=== PATIENT | male | born 1930 | race Caucasian/White ===

== ENCOUNTER 2017-12-24 08:39 | Day surgery (SDC) | payer MEDICARE, OTHER ==
[2017-12-17 12:32] VITALS: BMI 23.0
[~2017-12-24 08:39] MED LIST: HEPARIN SODIUM,PORCINE 5,000 UNIT/ML 1 ML VIAL SQ ONE; HYDROmorphone 0.5 MG/0.5 ML SYRINGE IVP PRN; LACTATED RINGERS 1,000 ML IV SCH; ONDANSETRON 4 MG/2 ML VIAL IVP ONE; Pre Op ABX Message 1 EACH MISC MISCELLANE ONE
[2017-12-24 09:04] VITALS: RESP 16; TEMP 97.6
[2017-12-24 09:28] LABS: Glucose,Whole Blood 127 mg/dL (75-99)
[2017-12-24] MEDS ORDERED: LIDOCAINE 1% 20 ML VIAL (10MG/ML) FOR IV START INTRADERMA ONE (09:37)
--- NOTE | 2017-12-24 10:44 | P.GSHP ---
History of Present Illness H&P Date: 12/24/17 Chief Complaint: Squamous cell carcinoma right arm This 87-year-old male who had a previous punch biopsy performed by Dr. Ramirez. 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 Patient presents today for wide local excision. I had a lengthy discussion the patient and his son patient's skin is very thin. Patient aware the risk of possible wound infection seroma hematoma and wound opening. Past Medical History Past Medical History: COPD, CVA/TIA, Diabetes Mellitus, GERD/Reflux, Hypertension, Pulmonary Embolus (PE) Additional Past Medical History / Comment(s): TIAs (1996) History of Any Multi-Drug Resistant Organisms: None Reported Past Surgical History: Bowel Resection, Joint Replacement, Orthopedic Surgery Additional Past Surgical History / Comment(s): AAA repair (1995), various procedures to remove skin lesions/cancerous skin lesions Past Anesthesia/Blood Transfusion Reactions: No Reported Reaction Additional Past Anesthesia/Blood Transfusion Reaction / Comment(s): slow to come out Smoking Status: Former smoker - Past Family History Mother Additional Family Medical History / Comment(s): "old age" at 92 years old Father Family Medical History: Cancer Additional Family Medical History / Comment(s): Hodgkins Lymphoma- at age 53 Medications and Allergies Home Medications Medication Instructions Recorded Confirmed Type Omeprazole 20 mg PO DAILY 10/16/15 12/24/17 History metFORMIN HCL 500 mg PO DAILY 10/16/15 12/24/17 History Levalbuterol Nebulized (Conc) 1.25 mg INHALATION RT-Q6H ml 10/26/15 12/24/17 Rx [Xopenex Nebulized (Conc)] Valsartan [Diovan] 320 mg PO DAILY tab 10/26/15 12/24/17 Rx Allergies Allergy/AdvReac Type Severity Reaction Status Date / Time No Known Allergies Allergy Verified 12/24/17 09:13 Surgical - Exam Vital Signs Temp Pulse Resp BP Pulse Ox 97.6 F 86 16 151/81 99 12/24/17 09:02 12/24/17 09:02 12/24/17 09:02 12/24/17 09:02 12/24/17 09:02 - General well developed, no distress - Eyes PERRL - ENT normal pinna - Neck no masses - Respiratory normal expansion - Cardiovascular Rhythm: regular - Abdomen Abdomen: soft, non tender - Integumentary 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 Patient will undergo wide local excision.
[2017-12-24] MEDS ORDERED: MIDAZOLAM 2 MG/2 ML VIAL ONE (10:55)
[2017-12-24] MEDS ORDERED: PROPOFOL 10 MG/ML 20 ML VIAL IV ONE (10:55)
[2017-12-24] MEDS ORDERED: KETAMINE 10 MG/ML 20 ML VIAL ONE (10:55)
[2017-12-24] MEDS ORDERED: fentaNYL (PF) 50 MCG/ML 2 ML AMP ONE (10:55)
[2017-12-24] MEDS ORDERED: LIDOCAINE 1% INJ 10MG/ML (20 ML MDV) ONE (10:55)
[2017-12-24] MEDS ORDERED: BUPIVACAINE (PF) 0.5% 30 ML VIAL SQ ONE (11:13)
--- NOTE | 2017-12-24 11:43 | P.OP ---
Date of Procedure: 12/24/17 Preoperative Diagnosis: Right arm squamous cell carcinoma Postoperative Diagnosis: Right arm squamous cell carcinoma Procedure(s) Performed: Excision of right fore arm squamous cell carcinoma Anesthesia: MAC Surgeon: Leonides Chu Estimated Blood Loss (ml): 5 Pathology: other (Right forearm squamous cell carcinoma) Condition: stable Disposition: PACU Description of Procedure: The patient's placed the operative table in supine position. He received IV sedation. His right arm was prepped and draped usual sterile fashion. The patient a 1 cm squamous cell carcinoma located in the mid position of his right forearm. Elliptical skin incision was made around the lesion the specimen measured 10 x 4 cm. Using left cautery the specimen was dissected free. The Bovie was used for hemostasis. The skin was then closed with interrupted 3-0 Monocryl suture and then running subcuticular Monocryl suture. Dermabond was applied. Patient top she will was sent to recovery in stable condition.
[2017-12-24 12:21] VITALS: BP 112/74; PULSE 79
== END 2017-12-24 12:47 | disposition home or self-care (01) ==
LOC: OR 08:39
PROVIDERS: ATTEND Surgery
DX: C44.622 Squamous cell carcinoma of skin of right upper limb, including shoulder (principal); J44.9 Chronic obstructive pulmonary disease, unspecified; E11.9 Type 2 diabetes mellitus without complications; K21.9 Gastro-esophageal reflux disease without esophagitis; I10 Essential (primary) hypertension; I35.0 Nonrheumatic aortic (valve) stenosis; Z86.711 Personal history of pulmonary embolism; Z86.73 Personal history of transient ischemic attack (TIA), and cerebral infarction without residual deficits; Z79.84 Long term (current) use of oral hypoglycemic drugs; Z79.899 Other long term (current) drug therapy; Z87.891 Personal history of nicotine dependence
CPT/HCPCS: 11606; J2250; J1644; J2405; J2001; J3010; J2704; 88305

== ENCOUNTER 2018-02-05 11:39 | Inpatient (IN) | payer MEDICARE, OTHER ==
[2018-02-05] MEDS ORDERED: SODIUM CHLORIDE 0.9% 1,000 ML IV STA ×2 (12:34)
[2018-02-05] MEDS ORDERED: IPRATROPIUM 0.5 MG/2.5 ML NEBU INHALATION STA (12:34)
[2018-02-05] MEDS ORDERED: AZITHROMYCIN 500 MG in SODIUM CHLORIDE 0.9% 250 ML IVPB STA (12:34)
[2018-02-05] MEDS ORDERED: methylPREDNISolone SOD SUCCI 125 MG/2 ML VIAL IV STA (12:34)
[2018-02-05] MEDS ORDERED: ALBUTEROL NEBULIZED 2.5 MG/3 ML INHALATION STA (12:34)
[2018-02-05 13:00] LABS: Basophils % (A) 0 %; Eosinophils % (A) 0 %; HCT 38.9 % (39.0-53.0); HGB 12.8 gm/dL (13.0-17.5); Lymphocytes # (A) 1.5 k/uL (1.0-4.8); Lymphocytes % (A) 15 %; MCH 28.8 pg (25.0-35.0); MCV 87.3 fL (80.0-100.0); Monocytes # (A) 0.6 k/uL (0-1.0); Monocytes % (A) 6 %; Neutrophils # (A) 7.7 k/uL (1.3-7.7); Neutrophils % (A) 78 %; Platelet Count 140 k/uL (150-450); RBC 4.45 m/uL (4.30-5.90); RDW 13.8 % (11.5-15.5); WBC 9.9 k/uL (3.8-10.6)
[2018-02-05 13:08] LABS: Albumin 4.2 g/dL (3.5-5.0); Calcium 9.4 mg/dL (8.4-10.2); D-Dimer 3.7 mg/L FEU (<0.60); Potassium 4.5 mmol/L (3.5-5.1); Total Bilirubin 0.8 mg/dL (0.2-1.3); Total Protein 7.2 g/dL (6.3-8.2)
[2018-02-05 13:12] LABS: Partial Thromboplastin Time 28.7 sec (22.0-30.0)
[2018-02-05 13:40] LABS: Troponin I 0.024 ng/mL (0.000-0.034)
--- NOTE | 2018-02-05 15:12 | ED ---
SOB HPI - General Chief Complaint: Shortness of Breath Stated Complaint: Weakness Time Seen by Provider: 02/05/18 12:26 Source: patient Mode of arrival: wheelchair Limitations: no limitations - History of Present Illness Initial Comments: 87 years I gentleman presented with the cough fever for about 1 week now complaining about generalized weakness she is nauseous no vomiting is complaining about chest pain chest pain gets worse with deep breaths he does have a history of COPD, CVA, TIA gastroesophageal reflux disease also has a history of firm hypertension and pulmonary embolism in the past. Denies any abdominal pain no frequency urgency dysuria no symptoms of TIA or CVA - Related Data Home Medications Medication Instructions Recorded Confirmed Omeprazole 20 mg PO DAILY 10/16/15 02/05/18 metFORMIN HCL 500 mg PO DAILY 10/16/15 02/05/18 Previous Rx's Medication Instructions Recorded Valsartan [Diovan] 320 mg PO DAILY tab 10/26/15 Allergies Allergy/AdvReac Type Severity Reaction Status Date / Time No Known Allergies Allergy Verified 02/05/18 13:12 Review of Systems ROS Statement: Those systems with pertinent positive or pertinent negative responses have been documented in the HPI. ROS Other: All systems not noted in ROS Statement are negative. Past Medical History Past Medical History: COPD, CVA/TIA, Diabetes Mellitus, GERD/Reflux, Hypertension, Pulmonary Embolus (PE) Additional Past Medical History / Comment(s): Maribel (1996) History of Any Multi-Drug Resistant Organisms: None Reported Past Surgical History: Bowel Resection, Joint Replacement, Orthopedic Surgery Additional Past Surgical History / Comment(s): AAA repair (1995), various procedures to remove skin lesions/cancerous skin lesions Past Anesthesia/Blood Transfusion Reactions: No Reported Reaction Additional Past Anesthesia/Blood Transfusion Reaction / Comment(s): slow to come out Past Psychological History: Depression Smoking Status: Former smoker Past Alcohol Use History: None Reported Past Drug Use History: None Reported - Past Family History Mother Additional Family Medical History / Comment(s): "old age" at 92 years old Father Family Medical History: Cancer Additional Family Medical History / Comment(s): Hodgkins Lymphoma- at age 53 General Exam - General Exam Comments Initial Comments: General: The patient is awake and alert, in mod distress, and does appear pale and tired Skin: Skin is warm and dry and no rashes or lesions are noted. Eye: Pupils are equal, round and reactive to light, extra-ocular movements are intact; there is normal conjunctiva bilaterally. Ears, nose, mouth and throat: There are moist mucous membranes and no oral lesions. Neck: The neck is supple, there is no tenderness Cardiovascular: There is a regular rate and rhythm. No murmur, rub or gallop is appreciated. Respiratory: To auscultation bilateral, exam consistent with a moderate to severe COPD Gastrointestinal: Soft, non-distended, non-tender abdomen without masses or organomegaly noted. There is no rebound or guarding present. Bowel sounds are unremarkable. Back: There is no tenderness to palpation in the midline. There is no obvious deformity. Musculoskeletal: Normal ROM, no tenderness, There is no pedal edema. There is no calf tenderness or swelling. No cords were appreciated. Neurological: CN II-XII intact, Cranial nerves III through XII are intact. There are no obvious motor or sensory deficits. Coordination appears grossly intact. Speech is normal. Psychiatric: Cooperative, appropriate mood & affect, normal judgment. Limitations: no limitations Course Vital Signs 02/05/18 02/05/18 02/05/18 12:15 12:53 13:01 Temperature 100.6 F H Pulse Rate 108 H 100 104 H Respiratory 24 Rate Blood Pressure 137/67 O2 Sat by Pulse 93 L Oximetry 02/05/18 02/05/18 13:52 14:31 Temperature 99.8 F H Pulse Rate 115 H 108 H Respiratory 18 18 Rate Blood Pressure 107/69 110/68 O2 Sat by Pulse 97 99 Oximetry Review of this EKG sinus tachycardia with a ventricular rate of 115 NE interval is 1 H2 QRS duration is 74 QT/QTc is 322/445 and 50 CK G does not reveal any ST elevation or significant ST depression Patient is reassessed at 1500, CBC is normal d-dimer is quite elevated 3.7 creatinine is 1.6 troponin is negative considering his shortness of breath and need to proceed with the CT angiogram and considering his elevated creatinine he is not a candidate for CT angiogram to rule out pulmonary embolus and I will proceed with the VQ scan is troponin and EKG is unremarkable we did treat him with the bronchodilators he had iv steroids as well and he be admitted to Dr. Montiel's service Medical Decision Making - Lab Data Result diagrams: 02/05/18 12:37 03/23/18 12:37 Lab Results 02/05/18 02/05/18 02/05/18 Range/Units 12:37 12:37 12:37 WBC 9.9 (3.8-10.6) k/uL RBC 4.45 (4.30-5.90) m/uL Hgb 12.8 L (13.0-17.5) gm/dL Hct 38.9 L (39.0-53.0) % MCV 87.3 (80.0-100.0) fL MCH 28.8 (25.0-35.0) pg MCHC 33.0 (31.0-37.0) g/dL RDW 13.8 (11.5-15.5) % Plt Count 140 L (150-450) k/uL Neutrophils % 78 % Lymphocytes % 15 % Monocytes % 6 % Eosinophils % 0 % Basophils % 0 % Neutrophils # 7.7 (1.3-7.7) k/uL Lymphocytes # 1.5 (1.0-4.8) k/uL Monocytes # 0.6 (0-1.0) k/uL Eosinophils # 0.0 (0-0.7) k/uL Basophils # 0.0 (0-0.2) k/uL PT (9.0-12.0) sec INR (<1.2) APTT (22.0-30.0) sec D-Dimer (<0.60) mg/L FEU Sodium 137 (137-145) mmol/L Potassium 4.5 (3.5-5.1) mmol/L Chloride 98 (98-107) mmol/L Carbon Dioxide 24 (22-30) mmol/L Anion Gap 15 mmol/L BUN 33 H (9-20) mg/dL Creatinine 1.60 H (0.66-1.25) mg/dL Est GFR (CKD-EPI)AfAm 45 (>60 ml/min/1.73 sqM) Est GFR (CKD-EPI)NonAf 39 (>60 ml/min/1.73 sqM) Glucose 124 H (74-99) mg/dL Plasma Lactic Acid [place] (0.7-2.0) mmol/L Calcium 9.4 (8.4-10.2) mg/dL Total Bilirubin 0.8 (0.2-1.3) mg/dL AST 34 (17-59) U/L ALT 21 (21-72) U/L Alkaline Phosphatase 64 (38-126) U/L Total Creatine Kinase 116 (55-170) U/L CK-MB (CK-2) 1.0 (0.0-2.4) ng/mL CK-MB (CK-2) Rel Index 0.9 Troponin I 0.024 (0.000-0.034) ng/mL Total Protein 7.2 (6.3-8.2) g/dL Albumin 4.2 (3.5-5.0) g/dL 02/05/18 02/05/18 Range/Units 12:37 12:37 WBC (3.8-10.6) k/uL RBC (4.30-5.90) m/uL Hgb (13.0-17.5) gm/dL Hct (39.0-53.0) % MCV (80.0-100.0) fL MCH (25.0-35.0) pg MCHC (31.0-37.0) g/dL RDW (11.5-15.5) % Plt Count (150-450) k/uL Neutrophils % % Lymphocytes % % Monocytes % % Eosinophils % % Basophils % % Neutrophils # (1.3-7.7) k/uL Lymphocytes # (1.0-4.8) k/uL Monocytes # (0-1.0) k/uL Eosinophils # (0-0.7) k/uL Basophils # (0-0.2) k/uL PT 10.0 (9.0-12.0) sec INR 1.0 (<1.2) APTT 28.7 (22.0-30.0) sec D-Dimer 3.70 H (<0.60) mg/L FEU Sodium (137-145) mmol/L Potassium (3.5-5.1) mmol/L Chloride (98-107) mmol/L Carbon Dioxide (22-30) mmol/L Anion Gap mmol/L BUN (9-20) mg/dL Creatinine (0.66-1.25) mg/dL Est GFR (CKD-EPI)AfAm (>60 ml/min/1.73 sqM) Est GFR (CKD-EPI)NonAf (>60 ml/min/1.73 sqM) Glucose (74-99) mg/dL Plasma Lactic Acid [place] 1.1 (0.7-2.0) mmol/L Calcium (8.4-10.2) mg/dL Total Bilirubin (0.2-1.3) mg/dL AST (17-59) U/L ALT (21-72) U/L Alkaline Phosphatase (38-126) U/L Total Creatine Kinase (55-170) U/L CK-MB (CK-2) (0.0-2.4) ng/mL CK-MB (CK-2) Rel Index Troponin I (0.000-0.034) ng/mL Total Protein (6.3-8.2) g/dL Albumin (3.5-5.0) g/dL Disposition Clinical Impression: Dyspnea, Fever, Elevated d-dimer, Renal insufficiency Disposition: ADMITTED IP TO THIS [facility] Condition: Good Referrals: Meir Hopkins Jr, [Primary Care Provider] - 1-2 days
--- NOTE | 2018-02-05 15:55 | NM ---
EXAMINATION TYPE: NM pul vent and perfuse DATE OF EXAM: 02/05/2018 COMPARISON: NONE HISTORY: Shortness of breath TECHNIQUE: Utilizing inhalation of 64.5 mCi Tc 99m DTPA aerosol and intravenous injection of 5.2 mCi of Tc 99m MAA, ventilation and perfusion images are acquired post injection in multiple projections. FINDINGS: There is central accumulation of radiotracer compatible with COPD. No ventilation/perfusion mismatche s are noted. Several small matched defects seen. IMPRESSION: Low probability for pulmonary embolism.
--- NOTE | 2018-02-05 16:18 | XR ---
EXAMINATION TYPE: XR chest 2V DATE OF EXAM: 02/05/2018 COMPARISON: October 23, 2015 HISTORY: Shortness of breath TECHNIQUE: Frontal and lateral views of the chest are obtained. FINDINGS: Scattered senescent parenchymal changes noted. Chronic elevation left hemidiaphragm. No evidence for infiltrate. No evidence for atelectasis. Heart size is stable. Mediastinal structures are stable and grossly unremarkable. No evidence for hilar prominence. Degenerative changes dorsal spine. IMPRESSION: 1. No evidence for acute pulmonary disease.
[2018-02-05] MEDS: IPRATROPIUM-ALBUTEROL 3 ML NEB INHALATION SCH ×3 (16:31→23:34)
[2018-02-05] MEDS ORDERED: OSELTAMIVIR 75 MG CAP PO STA (16:50)
[2018-02-05] MEDS: methylPREDNISolone SOD SUCCI 125 MG/2 ML VIAL IV SCH ×2 (20:02→22:45)
[2018-02-05 21:23] LABS: Glucose,Whole Blood 257 mg/dL (75-99)
[2018-02-05] MEDS: INSULIN ASPART 100 UNIT/ML 1 ML 10 ML VIAL SQ SCH (21:31)
[2018-02-06 01:55] LABS: Hemoglobin A1C 5.4 % (4.0-6.0)
[2018-02-06] MEDS: IPRATROPIUM-ALBUTEROL 3 ML NEB INHALATION SCH ×6 (03:34→23:29)
[2018-02-06 04:23] LABS: Appearance,Urine Clear (Clear); Bilirubin,Urine Negative (Negative); Blood,Urine Negative (Negative); Color,Urine Yellow; Glucose,Urine (UA) 4+ (Negative); Hyaline Casts,Urine 1 /lpf (0-2); Ketones,Urine Negative (Negative); Leukocyte Esterase,Urine Negative (Negative); Nitrite,Urine Negative (Negative); PH, Urine 5.5 (5.0-8.0); Protein,Urine 1+ (Negative); RBC,Urine <1 /hpf (0-5); Specific Gravity,Urine 1.014 (1.001-1.035); Urobilinogen,Urine <2.0 mg/dL (<2.0); WBC,Urine <1 /hpf (0-5)
[2018-02-06] MEDS: methylPREDNISolone SOD SUCCI 125 MG/2 ML VIAL IV SCH ×4 (06:48→23:08)
[2018-02-06] MEDS: OSELTAMIVIR 75 MG CAP PO SCH ×2 (06:48→17:31)
[2018-02-06] MEDS: PANTOPRAZOLE 40 MG TABLET PO SCH (06:49)
[2018-02-06] MEDS: INSULIN ASPART 100 UNIT/ML 1 ML 10 ML VIAL SQ SCH ×4 (07:01→22:02)
[2018-02-06 07:04] LABS: Glucose,Whole Blood 181 mg/dL (75-99)
[2018-02-06] MEDS ORDERED: INSULIN ASPART 100 UNIT/ML 1 ML 10 ML VIAL SQ SCH (07:30)
[2018-02-06] MEDS: metFORMIN 500 MG TAB PO SCH (08:48)
[2018-02-06] MEDS: VALSARTAN 160 MG TAB PO SCH (08:48)
[2018-02-06 10:43] LABS: Basophils % (A) 0 %; Eosinophils % (A) 0 %; HCT 35.2 % (39.0-53.0); HGB 11.6 gm/dL (13.0-17.5); Lymphocytes # (A) 0.6 k/uL (1.0-4.8); Lymphocytes % (A) 5 %; MCH 29.1 pg (25.0-35.0); MCHC 33.1 g/dL (31.0-37.0); MCV 88.1 fL (80.0-100.0); Mean Platelet Volume 7.6; Monocytes # (A) 0.3 k/uL (0-1.0); Monocytes % (A) 2 %; Neutrophils % (A) 92 %; Platelet Count 110 k/uL (150-450); RDW 13.7 % (11.5-15.5); WBC 10.9 k/uL (3.8-10.6)
[2018-02-06 11:13] LABS: Calcium 8.9 mg/dL (8.4-10.2)
--- NOTE | 2018-02-06 11:31 | P.HPIM ---
History of Present Illness H&P Date: 02/06/18 Chief Complaint: cough This is an 87-year-old white male with the practice. He reports a one-week history of increasing cough and shortness of breath. He reports that he went out for [employer] [place] the tablets. He began getting sick several days later. He became so short of breath and coughing so hard that his family brought him to the emergency room. He is currently resting comfortably in the hospital but on 64. He feels improved. He is positive for influenza. PE workup was negative. Review of Systems All systems: negative Past Medical History Past Medical History: Cancer, COPD, CVA/TIA, Diabetes Mellitus, GERD/Reflux, Hypertension, Osteoarthritis (OA), Pulmonary Embolus (PE) Additional Past Medical History / Comment(s): TIAs (1996), falls, squamous cell skin ca, murmur, "leaky haert valve" History of Any Multi-Drug Resistant Organisms: None Reported Past Surgical History: Bowel Resection, Joint Replacement, Orthopedic Surgery Additional Past Surgical History / Comment(s): AAA repair (1995), various procedures to remove skin lesions/cancerous skin lesions , bowel sx d/t obstruction,cataracts. Past Anesthesia/Blood Transfusion Reactions: No Reported Reaction Additional Past Anesthesia/Blood Transfusion Reaction / Comment(s): slow to come out Smoking Status: Former smoker - Past Family History Mother Additional Family Medical History / Comment(s): "old age" at 92 years old Father Family Medical History: Cancer Additional Family Medical History / Comment(s): Hodgkins Lymphoma- at age 53 Medications and Allergies Home Medications Medication Instructions Recorded Confirmed Type Omeprazole 20 mg PO DAILY 10/16/15 02/05/18 History metFORMIN HCL 500 mg PO DAILY 10/16/15 02/05/18 History Valsartan [Diovan] 320 mg PO DAILY tab 10/26/15 02/05/18 Rx Allergies Allergy/AdvReac Type Severity Reaction Status Date / Time No Known Allergies Allergy Verified 02/05/18 13:12 Physical Exam Vitals: Vital Signs Temp Pulse Pulse Resp BP BP Pulse Ox 02/06/18 11:03 88 02/06/18 10:49 88 02/06/18 08:00 97.1 F L 95 18 137/79 99 02/06/18 07:09 84 02/06/18 06:56 83 96 02/06/18 04:00 96 F L 80 18 133/76 98 02/06/18 00:00 97.1 F L 89 20 124/69 98 02/05/18 21:20 93 18 02/05/18 20:31 99 02/05/18 20:21 98 02/05/18 20:00 96.8 F L 93 18 111/67 97 02/05/18 18:49 99.1 F 100 18 127/74 98 02/05/18 17:18 100 16 120/73 99 02/05/18 16:19 103 H 16 117/70 98 02/05/18 14:31 99.8 F H 108 H 18 110/68 99 02/05/18 13:52 115 H 18 107/69 97 02/05/18 13:01 104 H 02/05/18 12:53 100 02/05/18 12:15 100.6 F H 108 H 24 137/67 93 L Intake and Output 02/05/18 02/06/18 02/06/18 22:59 06:59 14:59 Intake Total 240 Output Total 400 Balance -400 240 Intake: Oral 240 Output: Urine 400 Other: Voiding Method Urinal Urinal Urinal # Voids 0 Weight 82 kg GENERAL: Elderly, frail looking gentleman. In good spirits. Does not look acutely ill. HEAD: Atraumatic, normocephalic. EYES: Pupils equal round and reactive to light, extraocular movements intact, sclera anicteric, conjunctiva are normal. ENT:nares patent, oropharynx clear without exudates. Moist mucous membranes. NECK: Normal range of motion, supple without lymphadenopathy or JVD, no thyromegaly LUNGS: Breath sounds coarse to auscultation bilaterally and equal. No wheezes rales or rhonchi. HEART: Regular rate and rhythm without murmurs, rubs or gallops.S1S2 Normal ABDOMEN: Soft, nontender, normoactive bowel sounds. No guarding, no rebound. No masses appreciated. EXTREMITIES: Normal range of motion, no pitting or edema. No clubbing or cyanosis. NEUROLOGICAL: Cranial nerves II through XII grossly intact. Normal speech, normal gait. PSYCH: Normal mood, normal affect. SKIN: Warm, Dry, normal turgor, no rashes or lesions noted. Significant toenail dystrophy noted. Results CBC & Chem 7: 02/06/18 10:29 02/05/18 12:37 Labs: Abnormal Lab Results - Last 24 Hours (Table) 02/05/18 02/05/18 02/05/18 Range/Units 12:37 12:37 12:37 WBC (3.8-10.6) k/uL RBC (4.30-5.90) m/uL Hgb 12.8 L (13.0-17.5) gm/dL Hct 38.9 L (39.0-53.0) % Plt Count 140 L (150-450) k/uL Neutrophils # (1.3-7.7) k/uL Lymphocytes # (1.0-4.8) k/uL D-Dimer 3.70 H (<0.60) mg/L FEU BUN 33 H (9-20) mg/dL Creatinine 1.60 H (0.66-1.25) mg/dL Glucose 124 H (74-99) mg/dL POC Glucose (mg/dL) (75-99) mg/dL Urine Protein (Negative) Urine Glucose (UA) (Negative) Influenza Type A RNA (Not Detectd) 02/05/18 02/05/18 02/06/18 Range/Units 16:16 21:03 04:07 WBC (3.8-10.6) k/uL RBC (4.30-5.90) m/uL Hgb (13.0-17.5) gm/dL Hct (39.0-53.0) % Plt Count (150-450) k/uL Neutrophils # (1.3-7.7) k/uL Lymphocytes # (1.0-4.8) k/uL D-Dimer (<0.60) mg/L FEU BUN (9-20) mg/dL Creatinine (0.66-1.25) mg/dL Glucose (74-99) mg/dL POC Glucose (mg/dL) 257 H (75-99) mg/dL Urine Protein 1+ H (Negative) Urine Glucose (UA) 4+ H (Negative) Influenza Type A RNA Detected H (Not Detectd) 02/06/18 02/06/18 Range/Units 06:55 10:29 WBC 10.9 H (3.8-10.6) k/uL RBC 4.00 L (4.30-5.90) m/uL Hgb 11.6 L (13.0-17.5) gm/dL Hct 35.2 L (39.0-53.0) % Plt Count 110 L (150-450) k/uL Neutrophils # 10.0 H (1.3-7.7) k/uL Lymphocytes # 0.6 L (1.0-4.8) k/uL D-Dimer (<0.60) mg/L FEU BUN (9-20) mg/dL Creatinine (0.66-1.25) mg/dL Glucose (74-99) mg/dL POC Glucose (mg/dL) 181 H (75-99) mg/dL Urine Protein (Negative) Urine Glucose (UA) (Negative) Influenza Type A RNA (Not Detectd) Microbiology - Last 24 Hours (Table) 02/06/18 04:07 Urine Culture - Preliminary Urine,Voided Comments: VQ scan shows low probability for pulmonary embolism Chest x-ray: report reviewed Thrombosis Risk Factor Assmnt - DVT/VTE Prophylaxis DVT/VTE Prophylaxis: Pharmacologic Prophylaxis ordered - Choose All That Apply Each Risk Factor Represents 3 Points: Age 75 years or older, History of DVT/PE Thrombosis Risk Factor Assessment Total Risk Factor Score: 6 Thrombosis Risk Factor Assessment Level: High Risk Assessment and Plan Plan: Influenza A: Continue Tamiflu. Continue updrafts as needed. He is artery received a dose of Solu-Medrol Rocephin and azithromycin COPD: Continue Solu-Medrol Type 2 diabetes: Continue NovoLog scale, continue metformin, continue Accu- Cheks. Hypertension: Continue valsartan History of PE/DVT prophylaxis: Heparin 5000 units subcutaneous every 8hrs and SCDs. GERD/GI prophylaxis: Continue pantoprazole Await consultation with pulmonology. He'll continue on Tamiflu another medication. He'll be reevaluated next 24 hours. We'll gently hydrate him based on his recent BUN and creatinine.
[2018-02-06] MEDS: SODIUM CHLORIDE 0.9% 1,000 ML IV SCH (12:12)
[2018-02-06 12:24] LABS: Glucose,Whole Blood 242 mg/dL (75-99)
[2018-02-06] MEDS: HEPARIN SODIUM,PORCINE 5,000 UNIT/ML 1 ML VIAL SQ SCH ×2 (15:36→22:02)
[2018-02-06 16:42] LABS: Glucose,Whole Blood 184 mg/dL (75-99)
[2018-02-06 22:01] LABS: Glucose,Whole Blood 191 mg/dL (75-99)
[2018-02-07] MEDS: IPRATROPIUM-ALBUTEROL 3 ML NEB INHALATION SCH ×5 (03:41→20:42)
[2018-02-07] MEDS: OSELTAMIVIR 75 MG CAP PO SCH ×2 (06:39→17:25)
[2018-02-07] MEDS: SODIUM CHLORIDE 0.9% 1,000 ML IV SCH (06:40)
[2018-02-07] MEDS: INSULIN ASPART 100 UNIT/ML 1 ML 10 ML VIAL SQ SCH ×4 (06:40→21:59)
[2018-02-07] MEDS: methylPREDNISolone SOD SUCCI 125 MG/2 ML VIAL IV SCH ×3 (06:40→17:25)
[2018-02-07] MEDS: PANTOPRAZOLE 40 MG TABLET PO SCH (06:40)
[2018-02-07 06:41] LABS: Glucose,Whole Blood 178 mg/dL (75-99)
[2018-02-07 06:53] LABS: Basophils % (A) 0 %; Eosinophils % (A) 0 %; HGB 11.1 gm/dL (13.0-17.5); Lymphocytes # (A) 0.8 k/uL (1.0-4.8); Lymphocytes % (A) 6 %; MCH 29.3 pg (25.0-35.0); MCHC 33.6 g/dL (31.0-37.0); MCV 87.3 fL (80.0-100.0); Mean Platelet Volume 7.6; Monocytes # (A) 0.4 k/uL (0-1.0); Monocytes % (A) 3 %; Neutrophils # (A) 12.3 k/uL (1.3-7.7); Neutrophils % (A) 91 %; Platelet Count 128 k/uL (150-450); RBC 3.79 m/uL (4.30-5.90); RDW 13.4 % (11.5-15.5); WBC 13.6 k/uL (3.8-10.6)
[2018-02-07 07:19] LABS: Calcium 8.5 mg/dL (8.4-10.2); Magnesium 1.6 mg/dL (1.6-2.3); Potassium 4.3 mmol/L (3.5-5.1)
[2018-02-07] MEDS: VALSARTAN 160 MG TAB PO SCH (08:44)
[2018-02-07] MEDS: metFORMIN 500 MG TAB PO SCH (08:44)
[2018-02-07] MEDS: HEPARIN SODIUM,PORCINE 5,000 UNIT/ML 1 ML VIAL SQ SCH ×2 (08:45→17:25)
[2018-02-07 11:37] LABS: Glucose,Whole Blood 191 mg/dL (75-99)
--- NOTE | 2018-02-07 16:21 | P.PN ---
Subjective This is an 87-year-old white male with the practice. He reports a one-week history of increasing cough and shortness of breath. He reports that he went out for [employer] [place] the tablets. He began getting sick several days later. He became so short of breath and coughing so hard that his family brought him to the emergency room. He is currently resting comfortably in the hospital but on 64. He feels improved. He is positive for influenza. PE workup was negative. 02/07/2018: Patient feels much better this morning. He is tolerating his diet. He is up moving about as needed. He denies any significant shortness of breath. He denies chest pains nausea vomiting, diarrhea or constipation. Objective - Vital Signs Vital signs: Vital Signs Temp 97 F L 02/07/18 11:15 Pulse 88 02/07/18 15:19 Resp 18 02/07/18 15:02 BP 144/84 02/07/18 15:02 Pulse Ox 100 02/07/18 15:02 Intake & Output 02/06/18 02/07/18 02/07/18 18:59 06:59 18:59 Intake Total 840 800 Output Total 400 450 Balance 440 -450 800 Weight 82 kg Intake: Intake, IV Titration 200 Amount Sodium Chloride 0.9% 1, 200 000 ml @ 50 mls/hr IV . Q20H WANDA Rx#:[id number] Oral 840 600 Output: Urine 400 450 Other: Voiding Method Urinal Urinal Urinal Diaper Diaper Diaper # Voids 1 1 - Exam GENERAL: Elderly, frail looking gentleman. In good spirits. Does not look acutely ill. NECK: Normal range of motion, supple without lymphadenopathy or JVD, no thyromegaly LUNGS: Breath sounds coarse to auscultation bilaterally and equal. No wheezes rales or rhonchi. HEART: Regular rate and rhythm without murmurs, rubs or gallops.S1S2 Normal EXTREMITIES: Normal range of motion, no pitting or edema. No clubbing or cyanosis. NEUROLOGICAL: Cranial nerves II through XII grossly intact. Normal speech, normal gait. PSYCH: Normal mood, normal affect. SKIN: Warm, Dry, normal turgor, no rashes or lesions noted. Significant toenail dystrophy noted. - Labs CBC & Chem 7: 02/07/18 06:30 02/07/18 06:30 Labs: Abnormal Lab Results - Last 24 Hours (Table) 02/06/18 02/06/18 02/07/18 Range/Units 16:40 21:40 06:30 WBC 13.6 H (3.8-10.6) k/uL RBC 3.79 L (4.30-5.90) m/uL Hgb 11.1 L (13.0-17.5) gm/dL Hct 33.0 L (39.0-53.0) % Plt Count 128 L (150-450) k/uL Neutrophils # 12.3 H (1.3-7.7) k/uL Lymphocytes # 0.8 L (1.0-4.8) k/uL Carbon Dioxide (22-30) mmol/L BUN (9-20) mg/dL Glucose (74-99) mg/dL POC Glucose (mg/dL) 184 H 191 H (75-99) mg/dL 02/07/18 02/07/18 02/07/18 Range/Units 06:30 06:37 11:30 WBC (3.8-10.6) k/uL RBC (4.30-5.90) m/uL Hgb (13.0-17.5) gm/dL Hct (39.0-53.0) % Plt Count (150-450) k/uL Neutrophils # (1.3-7.7) k/uL Lymphocytes # (1.0-4.8) k/uL Carbon Dioxide 21 L (22-30) mmol/L BUN 34 H (9-20) mg/dL Glucose 187 H (74-99) mg/dL POC Glucose (mg/dL) 178 H 191 H (75-99) mg/dL Microbiology - Last 24 Hours (Table) 02/05/18 12:37 Blood Culture - Preliminary Blood No Growth after 48 hours 02/06/18 04:07 Urine Culture - Final Urine,Voided Assessment and Plan Plan: Influenza A: Continue Tamiflu. Continue updrafts as needed. He has already received a dose of Solu-Medrol Rocephin and azithromycin COPD: Continue Solu-Medrol Type 2 diabetes: Continue NovoLog scale, continue metformin, continue Accu- Cheks. Hypertension: Continue valsartan History of PE/DVT prophylaxis: Heparin 5000 units subcutaneous every 8hrs and SCDs. GERD/GI prophylaxis: Continue pantoprazole He'll continue on Tamiflu another medication. He'll be reevaluated next 24 hours. We'll gently hydrate him based on his recent BUN and creatinine.
[2018-02-07 16:58] LABS: Glucose,Whole Blood 219 mg/dL (75-99)
[2018-02-07 20:28] LABS: Glucose,Whole Blood 207 mg/dL (75-99)
[2018-02-07] MEDS ORDERED: IPRATROPIUM-ALBUTEROL 3 ML NEB INHALATION PRN (21:16)
[2018-02-08] MEDS: HEPARIN SODIUM,PORCINE 5,000 UNIT/ML 1 ML VIAL SQ SCH ×2 (00:39→07:44)
[2018-02-08] MEDS: methylPREDNISolone SOD SUCCI 125 MG/2 ML VIAL IV SCH ×2 (00:39→06:27)
[2018-02-08 04:18] VITALS: PULSE 84
[2018-02-08 05:56] LABS: Glucose,Whole Blood 190 mg/dL (75-99)
[2018-02-08] MEDS: INSULIN ASPART 100 UNIT/ML 1 ML 10 ML VIAL SQ SCH (06:24)
[2018-02-08] MEDS: SODIUM CHLORIDE 0.9% 1,000 ML IV SCH (06:27)
[2018-02-08] MEDS: OSELTAMIVIR 75 MG CAP PO SCH (06:27)
[2018-02-08] MEDS: PANTOPRAZOLE 40 MG TABLET PO SCH (06:28)
[2018-02-08] MEDS: metFORMIN 500 MG TAB PO SCH (07:46)
[2018-02-08] MEDS: VALSARTAN 160 MG TAB PO SCH (07:46)
[2018-02-08 07:56] VITALS: BP 150/82; RESP 18; TEMP 96
[2018-02-08] MEDS: IPRATROPIUM-ALBUTEROL 3 ML NEB INHALATION SCH ×2 (09:08→09:09)
--- NOTE | 2018-02-08 09:58 | P.DS ---
Providers Date of admission: 02/05/18 15:16 Expected date of discharge: 02/08/18 Attending physician: Shar Cedeño Primary care physician: [facility] Course: 87-year-old male who presented to the emergency room with shortness of breath and generalized weakness. The patient reported he was out for [employer] and began feeling sick shortly afterwards. Patient states he was coughing frequently and his shortness of breath was getting worse. The patient was found to be positive for influenza A. He was started on Tamiflu. The patient's d-dimer was elevated. He underwent a VQ scan which revealed low probability for pulmonary embolus. He was also started on IV steroids which have been weaned down. The patient has a history of COPD, diabetes mellitus, GERD, hypertension, and osteoarthritis. The patient's respiratory status has improved and the patient is stable for discharge per Dr. Hopkins. Prescriptions were sent to the patient's preferred pharmacy for Tamiflu for 5 remaining doses and a steroid taper. His to follow up on an outpatient basis. DISCHARGE DIAGNOSIS: Acute influenza A Acute exacerbation of COPD, improved at time of discharge Diabetes mellitus, type II Essential hypertension Nurse practitioner note has been reviewed by physician. Signing provider agrees with the documented findings, assessment, and plan of care. Patient Condition at Discharge: Good Plan - Discharge Summary Discharge Rx Participant: Yes New Discharge Prescriptions: New Oseltamivir [Tamiflu] 75 mg PO Q12H #5 cap predniSONE See Taper PO DIRECTED #30 tab Continue metFORMIN HCL 500 mg PO DAILY Omeprazole 20 mg PO DAILY Valsartan [Diovan] 320 mg PO DAILY tab Discharge Medication List Omeprazole 20 mg PO DAILY 10/16/15 [History] metFORMIN HCL 500 mg PO DAILY 10/16/15 [History] Valsartan [Diovan] 320 mg PO DAILY tab 10/26/15 [Rx] Oseltamivir [Tamiflu] 75 mg PO Q12H #5 cap 02/08/18 [Rx] predniSONE See Taper PO DIRECTED #30 tab 02/08/18 [Rx] Follow up Appointment(s)/Referral(s): Meir Hopkins Jr, DO [Primary Care Provider] - 02/15/18 10:30 am Patient Instructions/Handouts: Influenza (DC) Discharge Disposition: HOME SELF-CARE
[2018-02-08] MEDS ORDERED: methylPREDNISolone SOD SUCCI 125 MG/2 ML VIAL IV SCH (10:00)
[2018-02-08] MEDS ORDERED: methylPREDNISolone SOD SUCCI 40 MG/ML 1 ML VIAL IV SCH (12:00)
== END 2018-02-08 11:53 | disposition home health service (06) | DRG 194 ==
LOC: EC 11:39 → 6SEL 15:16
PROVIDERS: ADMIT Family Medicine; ATTEND Family Medicine
DX: J10.1 Influenza due to other identified influenza virus with other respiratory manifestations (principal); J44.1 Chronic obstructive pulmonary disease with (acute) exacerbation; E11.9 Type 2 diabetes mellitus without complications; I10 Essential (primary) hypertension; K21.9 Gastro-esophageal reflux disease without esophagitis; R79.1 Abnormal coagulation profile; Z79.899 Other long term (current) drug therapy; Z80.7 Family history of other malignant neoplasms of lymphoid, hematopoietic and related tissues; Z85.828 Personal history of other malignant neoplasm of skin; Z86.711 Personal history of pulmonary embolism; Z86.73 Personal history of transient ischemic attack (TIA), and cerebral infarction without residual deficits; Z86.79 Personal history of other diseases of the circulatory system; Z87.891 Personal history of nicotine dependence; Z79.84 Long term (current) use of oral hypoglycemic drugs; Z86.718 Personal history of other venous thrombosis and embolism
CPT/HCPCS: 36415; 71046; 78582; 80048; 80053; 81001; 82550; 82553; 83036; 83605; 83735; 84484; 85025; 85379; 85610; 85730; 87040; 87086; 87502; 93005; 94640; 94760; 96361; 96365; 96366; 96368; 96375; 99285

== ENCOUNTER 2018-02-15 09:19 | Inpatient (IN) | payer MEDICARE, OTHER ==
--- NOTE | 2018-02-15 10:22 | ED ---
General Adult HPI - General Stated complaint: Weakness - History of Present Illness Initial comments: Benjamin Hobbs is an 87 yo M with extensive past medical history most significant for recent admission to the hospital for flulike symptoms, tachycardia, fever, elevated d-dimer. During that admission the patient did experience some constipation and abdominal pain. He was discharged home and reports that he has been doing well. He reports that he was feeling well yesterday, he was able to spend Easter Thursday with his family and eat a large Easter dinner. He reports that during the night last night he began experiencing pressure in his abdomen, he describes it as a feeling as though he did have a bowel movement. Patient reports that throughout the night he was awake feeling this abdominal discomfort, he did have a very large painful bowel movement during the night. He reports that since that time he just feels fatigued. He continues to experience cramping in his abdomen. Patient denies any fevers, chills he does report feeling nauseated and has had a couple small episodes of nonbloody nonbilious vomiting. Eyes any chest pain, palpitations, shortness of breath. He describes feeling as though he is completely wiped out with no energy to get out of bed today. - Related Data Home Medications Medication Instructions Recorded Confirmed Omeprazole 20 mg PO DAILY 10/16/15 02/15/18 metFORMIN HCL 500 mg PO DAILY 10/16/15 02/15/18 Allergies Allergy/AdvReac Type Severity Reaction Status Date / Time No Known Allergies Allergy Verified 02/15/18 10:26 Review of Systems ROS Statement: Those systems with pertinent positive or pertinent negative responses have been documented in the HPI. ROS Other: All systems not noted in ROS Statement are negative. Constitutional: Reports: weakness. Denies: fever Eyes: Denies: vision change ENT: Denies: hearing loss Respiratory: Denies: cough, dyspnea Cardiovascular: Denies: chest pain, palpitations Endocrine: Reports: fatigue Gastrointestinal: Reports: abdominal pain, nausea, vomiting, constipation Genitourinary: Denies: urgency Musculoskeletal: Denies: back pain Skin: Denies: rash, lesions Neurological: Reports: weakness (Generalized). Denies: headache Hematological/Lymphatic: Reports: easy bleeding Past Medical History Past Medical History: Cancer, COPD, CVA/TIA, Diabetes Mellitus, GERD/Reflux, Hypertension, Osteoarthritis (OA), Pulmonary Embolus (PE) Additional Past Medical History / Comment(s): TIAs (1996), falls, squamous cell skin ca, murmur, "leaky haert valve" History of Any Multi-Drug Resistant Organisms: None Reported Past Surgical History: Bowel Resection, Joint Replacement, Orthopedic Surgery Additional Past Surgical History / Comment(s): AAA repair (1995), various procedures to remove skin lesions/cancerous skin lesions , bowel sx d/t obstruction,cataracts. Past Anesthesia/Blood Transfusion Reactions: No Reported Reaction Additional Past Anesthesia/Blood Transfusion Reaction / Comment(s): slow to come out Smoking Status: Former smoker - Past Family History Mother Additional Family Medical History / Comment(s): "old age" at 92 years old Father Family Medical History: Cancer Additional Family Medical History / Comment(s): Hodgkins Lymphoma- at age 53 General Exam General appearance: alert, in no apparent distress Head exam: Present: atraumatic, normocephalic Eye exam: Present: normal appearance, PERRL ENT exam: Present: normal exam Neck exam: Present: normal inspection Respiratory exam: Absent: respiratory distress Cardiovascular Exam: Present: regular rate, normal rhythm, systolic murmur GI/Abdominal exam: Present: soft, tenderness, hyperactive bowel sounds. Absent : distended, guarding, rebound, rigid Extremities exam: Present: normal inspection Back exam: Present: normal inspection Neurological exam: Present: alert, oriented X3 Psychiatric exam: Present: normal affect Skin exam: Present: warm, dry Course Vital Signs 02/15/18 02/15/18 02/15/18 09:21 11:06 11:22 Temperature 97.9 F 98.2 F Pulse Rate 100 95 95 Respiratory 20 18 18 Rate Blood Pressure 107/64 115/62 108/59 O2 Sat by Pulse 89 L 95 97 Oximetry EKG Findings - EKG Comments: EKG Findings:: EKG at 10:55 AM - rate 94, rhythm is sinus, normal axis, normal intervals, no acute ST elevations or depressions. No evidence of acute ischemia or infarction. Medical Decision Making - Medical Decision Making Patient was seen and evaluated, history is obtained from the patient, his son at bedside as well as review of his previous medical record Patient with diffuse abdominal pain, abdominal cramping, had large bowel movement during the night with no improvement in his symptoms Experiencing generalized fatigue Labs and imaging were ordered EKG sinus rhythm with no acute ST elevations or depressions Labs with profound leukocytosis, x-ray suggestive of ileus or enteritis, blood cultures and empiric antibiotics were ordered given the tachycardia and leukocytosis CT abdomen was ordered Labs with lactic acidosis - IVF ordered Elevated troponin - will hold heparin until CT results and will continue to trend Multiple lab abnormalities were discussed with the patient's son at bedside, is aware that the patient will require admission for further workup. CT with fecal impaction, possible gastritis Patient care was discussed with Dr. Cedeño, he is mildly with the patient as the patient was admitted to him last week. Lab abnormalities as well as x-ray and CT findings were discussed with Dr. Cedeño, at this time he recommends holding off on heparin and continuing to trend lactic acid and troponin. Agrees with plan for IV fluids and supportive care. Excepts the patient to his service for further evaluation and treatment. - Lab Data Result diagrams: 02/15/18 10:25 02/15/18 10:25 Lab Results 02/15/18 02/15/18 02/15/18 Range/Units 10:25 10:25 10:25 WBC 30.8 H* (3.8-10.6) k/uL RBC 4.37 (4.30-5.90) m/uL Hgb 13.0 (13.0-17.5) gm/dL Hct 38.0 L (39.0-53.0) % MCV 86.8 (80.0-100.0) fL MCH 29.7 (25.0-35.0) pg MCHC 34.2 (31.0-37.0) g/dL RDW 13.9 (11.5-15.5) % Plt Count 183 (150-450) k/uL Neutrophils % (Manual) 83 % Band Neutrophils % 8 % Lymphocytes % (Manual) 6 % Monocytes % (Manual) 2 % Myelocytes % 1 % Neutrophils # (Manual) 28.00 H (1.3-7.7) k/uL Lymphocytes # (Manual) 1.85 (1.0-4.8) k/uL Monocytes # (Manual) 0.62 (0-1.0) k/uL Myelocytes # (Manual) 0.31 H (0) k/uL Nucleated RBCs 0 (0-0) /100 WBC Toxic Granulation Present Poikilocytosis (manual Present Anisocytosis (manual) Present PT (9.0-12.0) sec INR (<1.2) APTT (22.0-30.0) sec Sodium 138 (137-145) mmol/L Potassium 4.0 (3.5-5.1) mmol/L Chloride 98 (98-107) mmol/L Carbon Dioxide 24 (22-30) mmol/L Anion Gap 16 mmol/L BUN 39 H (9-20) mg/dL Creatinine 1.54 H (0.66-1.25) mg/dL Est GFR (CKD-EPI)AfAm 47 (>60 ml/min/1.73 sqM) Est GFR (CKD-EPI)NonAf 41 (>60 ml/min/1.73 sqM) Glucose 184 H (74-99) mg/dL Plasma Lactic Acid [place] 4.0 H* (0.7-2.0) mmol/L Calcium 8.7 (8.4-10.2) mg/dL Magnesium 1.3 L (1.6-2.3) mg/dL Total Bilirubin 0.8 (0.2-1.3) mg/dL AST 22 (17-59) U/L ALT 27 (21-72) U/L Alkaline Phosphatase 66 (38-126) U/L Troponin I (0.000-0.034) ng/mL Total Protein 6.0 L (6.3-8.2) g/dL Albumin 3.4 L (3.5-5.0) g/dL Urine Color Urine Appearance (Clear) Urine pH (5.0-8.0) Ur Specific [place] (1.001-1.035) Urine Protein (Negative) Urine Glucose (UA) (Negative) Urine Ketones (Negative) Urine Blood (Negative) Urine Nitrite (Negative) Urine Bilirubin (Negative) Urine Urobilinogen (<2.0) mg/dL Ur Leukocyte Esterase (Negative) Urine RBC (0-5) /hpf Urine WBC (0-5) /hpf Urine Mucus (None) /hpf 02/15/18 02/15/18 02/15/18 Range/Units 10:25 10:25 11:05 WBC (3.8-10.6) k/uL RBC (4.30-5.90) m/uL Hgb (13.0-17.5) gm/dL Hct (39.0-53.0) % MCV (80.0-100.0) fL MCH (25.0-35.0) pg MCHC (31.0-37.0) g/dL RDW (11.5-15.5) % Plt Count (150-450) k/uL Neutrophils % (Manual) % Band Neutrophils % % Lymphocytes % (Manual) % Monocytes % (Manual) % Myelocytes % % Neutrophils # (Manual) (1.3-7.7) k/uL Lymphocytes # (Manual) (1.0-4.8) k/uL Monocytes # (Manual) (0-1.0) k/uL Myelocytes # (Manual) (0) k/uL Nucleated RBCs (0-0) /100 WBC Toxic Granulation Poikilocytosis (manual Anisocytosis (manual) PT 10.2 (9.0-12.0) sec INR 1.0 (<1.2) APTT 23.2 (22.0-30.0) sec Sodium (137-145) mmol/L Potassium (3.5-5.1) mmol/L Chloride (98-107) mmol/L Carbon Dioxide (22-30) mmol/L Anion Gap mmol/L BUN (9-20) mg/dL Creatinine (0.66-1.25) mg/dL Est GFR (CKD-EPI)AfAm (>60 ml/min/1.73 sqM) Est GFR (CKD-EPI)NonAf (>60 ml/min/1.73 sqM) Glucose (74-99) mg/dL Plasma Lactic Acid [place] (0.7-2.0) mmol/L Calcium (8.4-10.2) mg/dL Magnesium (1.6-2.3) mg/dL Total Bilirubin (0.2-1.3) mg/dL AST (17-59) U/L ALT (21-72) U/L Alkaline Phosphatase (38-126) U/L Troponin I 0.211 H* (0.000-0.034) ng/mL Total Protein (6.3-8.2) g/dL Albumin (3.5-5.0) g/dL Urine Color Yellow Urine Appearance Clear (Clear) Urine pH 5.5 (5.0-8.0) Ur Specific [place] 1.017 (1.001-1.035) Urine Protein 1+ H (Negative) Urine Glucose (UA) 3+ H (Negative) Urine Ketones Negative (Negative) Urine Blood Negative (Negative) Urine Nitrite Negative (Negative) Urine Bilirubin Negative (Negative) Urine Urobilinogen 2.0 (<2.0) mg/dL Ur Leukocyte Esterase Negative (Negative) Urine RBC 1 (0-5) /hpf Urine WBC 2 (0-5) /hpf Urine Mucus Rare H (None) /hpf Disposition Clinical Impression: SIRS (systemic inflammatory response syndrome), Lactic acid acidosis, Elevated troponin Disposition: ADMITTED IP TO THIS HOSP Referrals: Meir Hopkins Jr, DO [Primary Care Provider] - 1-2 days
[2018-02-15 10:38] LABS: MCH 29.7 pg (25.0-35.0); MCHC 34.2 g/dL (31.0-37.0); MCV 86.8 fL (80.0-100.0); Mean Platelet Volume 7.1; Platelet Count 183 k/uL (150-450); RBC 4.37 m/uL (4.30-5.90); RDW 13.9 % (11.5-15.5)
[2018-02-15 10:47] LABS: Partial Thromboplastin Time 23.2 sec (22.0-30.0); Prothrombin Time 10.2 sec (9.0-12.0)
[2018-02-15 10:49] LABS: WBC 30.8 k/uL (3.8-10.6)
--- NOTE | 2018-02-15 10:51 | XR ---
EXAMINATION TYPE: XR abdomen acute w cxr DATE OF EXAM: 02/15/2018 COMPARISON: 04/29/2016, 10/23/2000, 02/05/2018 HISTORY: Cough TECHNIQUE: Supine, upright, and left side down lateral decubitus views of the abdomen are obtained. FINDINGS: Frontal view of the chest demonstrates hypertrophic change of the spine. There is elevation of the hemidiaphragm on the left with subsegmental consolidation and tiny effusion. Heart size is st able. Atherosclerotic change aorta. No pneumothorax. Bowel gas pattern is nonspecific. There are vascular calcifications noted. No free air. A few promine nt small bowel loops are seen. Ectasia of the vasculature noted. Previous surgery involving the right hip. Nonspecific calcifications in the left upper quadrant could be related to renal stones. Additionally there are rounded calcifications along the inner margin of the sacrum bilaterally which are stable fr om the CT scan of 10/18/2015 and likely related to vascular ectasia. Small aneurysm is not excluded. IMPRESSION: 1. Nonspecific abdomen with a few scattered prominent small bowel. Correlate for enteritis or ileus. 2. Left basilar atelectasis and pleural thickening or tiny effusion.
[2018-02-15] MEDS ORDERED: metroNIDAZOLE-NS PMX 500 MG in SALINE 1 100ML.BAG IVPB STA (10:53)
[2018-02-15] MEDS ORDERED: cefTRIAXone IN SWFI 1,000 MG/10 ML SYRINGE IVP STA (10:53)
[2018-02-15] MEDS ORDERED: RX INFO: IV CONTRAST WAS GIVEN 1 EACH MISC MISCELLANE PRN (10:53)
[2018-02-15 11:04] LABS: Albumin 3.4 g/dL (3.5-5.0); Calcium 8.7 mg/dL (8.4-10.2); Magnesium 1.3 mg/dL (1.6-2.3); Total Bilirubin 0.8 mg/dL (0.2-1.3)
[2018-02-15 11:23] LABS: Appearance,Urine Clear (Clear); Bilirubin,Urine Negative (Negative); Blood,Urine Negative (Negative); Color,Urine Yellow; Glucose,Urine (UA) 3+ (Negative); Ketones,Urine Negative (Negative); Leukocyte Esterase,Urine Negative (Negative); Mucus,Urine Rare /hpf; Nitrite,Urine Negative (Negative); PH, Urine 5.5 (5.0-8.0); Protein,Urine 1+ (Negative); RBC,Urine 1 /hpf (0-5); Specific Gravity,Urine 1.017 (1.001-1.035); WBC,Urine 2 /hpf (0-5)
[2018-02-15 11:26] LABS: Band Neutrophils % 8 %; Lymphocytes # (M) 1.85 k/uL (1.0-4.8); Monocytes # (M) 0.62 k/uL (0-1.0); Myelocytes # (M) 0.31 k/uL (0); Myelocytes % 1 %; Neutrophils % (M) 83 %; Nucleated Red Blood Cells 0 /100 WBC (0-0); Total Cells Counted 200
[2018-02-15 11:27] LABS: Anisocytosis (M) Present; Poikilocytosis (M) Present; Toxic Granulation Present
[2018-02-15] MEDS ORDERED: SODIUM CHLORIDE 0.9% 1,000 ML IV ONE (11:37)
[2018-02-15] MEDS ORDERED: SODIUM CHLORIDE 0.9% 1,000 ML IV STA (11:37)
--- NOTE | 2018-02-15 12:23 | CT ---
EXAMINATION TYPE: CT abdomen pelvis w con DATE OF EXAM: 02/15/2018 COMPARISON: 10/18/2015 HISTORY: Rectal pain yesterday, nausea and vomiting. CT DLP: 1582 mGycm Automated exposure control for dose reduction was used. TECHNIQUE: Helical acquisition of images was performed from the lung bases through the pelvis. CONTRAST: Performed without Oral Contrast and with IV Contrast, patient injected with 80 mL of Isovue M300. FINDINGS: LUNG BASES: Chronic reticulonodular opacities are seen at the lung bases. There is partial visualizat ion of tortuosity of the descending thoracic aorta as it extends to the right of midline prior to the diaphragmatic hiatus. LIVER/GB: Few punctate layering calculi are seen within the gallbladder neck in the gallbladder is pa rtially contracted. Liver is unremarkable. PANCREAS: No significant abnormality is seen. SPLEEN: No significant abnormality is seen. ADRENALS: No significant abnormality is seen. KIDNEYS: 1.7 cm left renal cyst and smaller bilateral cortically based subcentimeter hypoattenuated l esions that are too small to accurately characterize are also identified. FREE AIR: No free air is visualized. REPRODUCTIVE ORGANS: Heterogeneity of the prostate gland is noted with central zone calcifications. B ilateral small fat filled inguinal hernias are also noted. URINARY BLADDER: Incompletely distended and incompletely evaluated. ADENOPATHY: No greater than 1 cm short axis lymph nodes are seen within the abdomen or pelvis. OSSEOUS STRUCTURES: Right femoral fixation allie is partially visualized. There is a grade 1 anterolis thesis of L4 and L5, mildly progressed from the prior. BOWEL: The rectum is incompletely distended and incompletely evaluated. There is dilatation of the r ectosigmoid junction up to 6.9 cm by a rectal fecal ball that may represent impaction. This is nonobs tructive with no evidence of proximal obstruction. Innumerable sigmoid diverticula are seen without p ericolonic fat stranding. Other scattered colonic diverticula are also noted without evidence of acut e diverticulitis. Circumferential wall thickening of the stomach may relate to incomplete distention although gastritis should also be considered. OTHER: Extensive calcific and noncalcific atheromatous plaquing is seen of the abdominal aorta and it s branches with near circumferential extensive noncalcific atheromatous plaquing at the level of the renal arteries and just inferior to the renal arteries. Aneurysmal dilatation up to 4.6 x 3.8 cm just inferior to the renal arteries on series 3 image 33 extending over a short segment in length of 3.3 cm compatible with a fusiform aneurysm. Celiac and SMA arteries demonstrate approximately 50% stenosi s at the ostia and there is circumferential calcific atheromatous changes of the distal superior mese nteric artery although there is opacification seen distally. JOSETTE origin is not clearly identified alt sophie opacification is also seen distally. Abdominal aortic aneurysm has increased from the prior exam of 2016 where this measured approximately 3.8 x 3.1 cm when measured in a similar fashion. There is also aneurysmal dilatation of the peripherally calcified common iliac arteries measuring up to 2.0 cm each and aneurysm of the internal iliac arteries measuring 2.1 cm on the right and 1.7 cm o n the left. Unchanged from 2015 calcific density is seen within the right femoral vein. IMPRESSION: 1. Dilatation of the rectosigmoid junction up to 6.9 cm with an intraluminal rectal fecal ball sugges ting rectal impaction. No proximal obstruction. 2. Enlarging infrarenal fusiform abdominal aortic aneurysm in comparison to the prior exam of 2015 no w measuring 4.6 x 3.8 cm and previously measuring 3.8 x 3.1 cm. 2. 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 3. Circumferential gastric rugal fold thickening that may relate to incomplete distention although ga stritis should also be considered. 4. 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 5. Cholelithiasis without CT evidence of acute cholecystitis. 6. Reticulonodular opacities of the lung bases appear chronic in comparison to the exam of 2015.
[2018-02-15] MEDS ORDERED: NALOXONE 0.4 MG/ML 1 ML VIAL IV PRN (12:44)
[2018-02-15] MEDS: SODIUM CHLORIDE 0.9% 1,000 ML IV SCH ×2 (13:17→21:43)
[2018-02-15 17:13] LABS: Glucose,Whole Blood 128 mg/dL (75-99)
[2018-02-15] MEDS ORDERED: NA PHOS,M-B/NA PHOS,DI-BA 133 ML ENEMA RECTAL ONE (18:43)
[2018-02-15] MEDS ORDERED: Magnesium Replacement Protocol 1 EACH MISC MISCELLANE PRN (18:43)
[2018-02-15] MEDS: MAGNESIUM SULFATE-D5W PMX 1 GM in DEXTROSE/WATER 1 100ML.BAG IVPB SCH ×3 (19:42→22:52)
[2018-02-15] MEDS: HEPARIN SODIUM,PORCINE 5,000 UNIT/ML 1 ML VIAL SQ SCH ×2 (19:43→23:14)
[2018-02-15] MEDS ORDERED: MAGNESIUM CITRATE 296 ML BOTTLE PO PRN (21:15)
[2018-02-15 21:48] LABS: Glucose,Whole Blood 159 mg/dL (75-99)
[2018-02-15] MEDS: INSULIN ASPART 100 UNIT/ML 1 ML 10 ML VIAL SQ SCH (22:11)
[2018-02-16 01:18] LABS: Hemoglobin A1C 5.8 % (4.0-6.0)
[2018-02-16] MEDS: SODIUM CHLORIDE 0.9% 1,000 ML IV SCH ×4 (02:22→21:40)
[2018-02-16 06:07] LABS: Glucose,Whole Blood 106 mg/dL (75-99)
[2018-02-16 06:22] LABS: Basophils % (A) 0 %; Eosinophils # (A) 0.2 k/uL (0-0.7); Eosinophils % (A) 1 %; HGB 11.2 gm/dL (13.0-17.5); Lymphocytes # (A) 1.6 k/uL (1.0-4.8); Lymphocytes % (A) 10 %; MCH 29.8 pg (25.0-35.0); MCHC 33.8 g/dL (31.0-37.0); Mean Platelet Volume 6.8; Monocytes # (A) 0.5 k/uL (0-1.0); Monocytes % (A) 3 %; Neutrophils # (A) 13.9 k/uL (1.3-7.7); Neutrophils % (A) 85 %; Platelet Count 134 k/uL (150-450); RBC 3.75 m/uL (4.30-5.90); RDW 13.9 % (11.5-15.5); WBC 16.2 k/uL (3.8-10.6)
[2018-02-16 06:35] LABS: Calcium 8.3 mg/dL (8.4-10.2); Potassium 3.7 mmol/L (3.5-5.1)
[2018-02-16] MEDS: INSULIN ASPART 100 UNIT/ML 1 ML 10 ML VIAL SQ SCH ×4 (06:56→21:39)
[2018-02-16] MEDS: PANTOPRAZOLE 40 MG TABLET PO SCH (07:07)
[2018-02-16] MEDS: PIPERACILLIN-TAZOBACTAM 3.375 GM in DEXTROSE/WATER 1 50ML.BAG IVPB SCH ×2 (08:48→16:38)
[2018-02-16] MEDS: HEPARIN SODIUM,PORCINE 5,000 UNIT/ML 1 ML VIAL SQ SCH ×3 (08:51→23:23)
[2018-02-16] MEDS: metFORMIN 500 MG TAB PO SCH (09:00)
--- NOTE | 2018-02-16 09:17 | P.CRDCN ---
History of Present Illness Consult date: 02/16/18 Chief complaint: abdominal discomfort History of present illness: This is a pleasant 87-year-old gentleman who does not follow with any seo associate recently with a past medical history significant for diabetes as well as history of peripheral field disease and prior abdominal aortic aneurysm surgery was performed in long time ago presented to the hospital complaining of abdominal discomfort. He underwent computed tomography scan of the abdomen and that revealed dilated rectosigmoid junction. The patient did undergo an abdominal surgery about a year ago according to his son for lysis of adhesions.This time he presented with abdominal discomfort without any fever or chills.he did not have any symptoms of chest pain or chest discomfort for nor shortness of breath. Hemodynamically he is a stable with a normal heart rate and normal blood pressure. On physical examination he does have a harsh systolic murmur consistent with at least moderate to severe aortic stenosis. The last echocardiogram was in 2015 and that revealed moderate aortic stenosis with normal left ventricular systolic function. The cardiac enzymes were checked and came in to be slightly abnormal. The EKG showed sinus rhythm without any ischemic ST or T-wave abnormalities. Past Medical History Past Medical History: Cancer, COPD, CVA/TIA, Diabetes Mellitus, GERD/Reflux, Hypertension, Osteoarthritis (OA), Pulmonary Embolus (PE) Additional Past Medical History / Comment(s): TIAs (1996), falls, squamous cell skin ca, murmur, "leaky haert valve"constipation History of Any Multi-Drug Resistant Organisms: None Reported Past Surgical History: Bowel Resection, Joint Replacement, Orthopedic Surgery Additional Past Surgical History / Comment(s): AAA repair (1995), various procedures to remove skin lesions/cancerous skin lesions , bowel sx d/t obstruction,cataracts. Past Anesthesia/Blood Transfusion Reactions: No Reported Reaction Additional Past Anesthesia/Blood Transfusion Reaction / Comment(s): slow to come out Smoking Status: Former smoker - Past Family History Mother Additional Family Medical History / Comment(s): "old age" at 92 years old Father Family Medical History: Cancer Additional Family Medical History / Comment(s): Hodgkins Lymphoma- at age 53 Medications and Allergies Home Medications Medication Instructions Recorded Confirmed Type Omeprazole 20 mg PO DAILY 10/16/15 02/15/18 History metFORMIN HCL 500 mg PO DAILY 10/16/15 02/15/18 History Allergies Allergy/AdvReac Type Severity Reaction Status Date / Time No Known Allergies Allergy Verified 02/15/18 10:26 Physical Exam Vitals: Vital Signs Temp Pulse Pulse Resp BP BP Pulse Ox 02/16/18 04:00 98.6 F 91 18 121/71 94 L 02/16/18 00:00 98.2 F 88 18 121/88 93 L 02/15/18 20:00 98.2 F 99 18 156/83 96 02/15/18 18:20 97.5 F L 89 20 130/76 90 L 02/15/18 16:32 98.5 F 89 16 133/73 95 02/15/18 15:00 16 02/15/18 14:24 98.0 F 78 18 122/67 94 L 02/15/18 13:16 97.8 F 90 16 121/67 94 L 02/15/18 11:22 98.2 F 95 18 108/59 97 02/15/18 11:06 95 18 115/62 95 02/15/18 09:21 97.9 F 100 20 107/64 89 L Intake and Output 02/15/18 02/16/18 02/16/18 22:59 06:59 14:59 Intake Total 1540 450 Output Total 200 600 Balance 1340 -150 Intake: Amount of Fluid Infused ( 1300 ml) Intake, IV Titration 300 Amount Magnesium Sulfate-D5w Pmx 300 1 gm In Dextrose/Water 1 100ml.bag @ 100 mls/hr IVPB Q1H [facility] Rx#: [id number] Oral 240 150 Output: Urine 200 600 Other: Voiding Method Incontinent Urinal Incontinent # Voids 1 1 # Bowel Movements 1 Weight 81.5 kg - Constitutional General appearance: no acute distress - Respiratory Respiratory: bilateral: CTA - Cardiovascular Rhythm: regular Heart sounds: normal: S1 Abnormal Heart Sounds: systolic murmur Results 02/16/18 05:42 02/16/18 05:42 Cardiac Enzymes 02/15/18 02/15/18 02/15/18 Range/Units 10:25 10:25 18:24 AST 22 (17-59) U/L Troponin I 0.211 H* 0.123 H* (0.000-0.034) ng/mL 02/15/18 Range/Units 22:29 AST (17-59) U/L Troponin I 0.093 H* (0.000-0.034) ng/mL Coagulation 02/15/18 Range/Units 10:25 PT 10.2 (9.0-12.0) sec APTT 23.2 (22.0-30.0) sec CBC 02/15/18 02/16/18 Range/Units 10:25 05:42 WBC 30.8 H* 16.2 H (3.8-10.6) k/uL RBC 4.37 3.75 L (4.30-5.90) m/uL Hgb 13.0 11.2 L (13.0-17.5) gm/dL Hct 38.0 L 33.0 L (39.0-53.0) % Plt Count 183 134 L (150-450) k/uL Comprehensive Metabolic Panel 02/15/18 02/16/18 Range/Units 10:25 05:42 Sodium 138 135 L (137-145) mmol/L Potassium 4.0 3.7 (3.5-5.1) mmol/L Chloride 98 99 (98-107) mmol/L Carbon Dioxide 24 27 (22-30) mmol/L BUN 39 H 29 H (9-20) mg/dL Creatinine 1.54 H 1.20 (0.66-1.25) mg/dL Glucose 184 H 106 H (74-99) mg/dL Calcium 8.7 8.3 L (8.4-10.2) mg/dL AST 22 (17-59) U/L ALT 27 (21-72) U/L Alkaline Phosphatase 66 (38-126) U/L Total Protein 6.0 L (6.3-8.2) g/dL Albumin 3.4 L (3.5-5.0) g/dL Current Medications Generic Name Dose Route Start Last Admin Trade Name Freq PRN Reason Stop Dose Admin Heparin Sodium (Porcine) 5,000 unit 02/15/18 16:00 02/16/18 08:51 Heparin SQ 5,000 unit Q8HR WANDA Administration Sodium Chloride 1,000 mls @ 100 mls/hr 02/15/18 12:45 02/16/18 08:56 Saline 0.9% IV Not Given .Q10H WANDA Piperacillin/Tazobactam/ 50 mls @ 12.5 mls/hr 02/16/18 08:30 02/16/18 08:48 Dextrose 3.375 gm/ IV Solution IVPB 12.5 mls/hr Q8HR WANDA Administration Insulin Aspart 0 unit 02/15/18 21:00 02/16/18 06:56 Novolog SQ Not Given ACHS [facility] Protocol Magnesium Citrate 148 ml 02/15/18 21:15 Citrate Of Magnesia PO ONCE PRN Constipation Metformin HCl 500 mg 02/16/18 09:00 Glucophage PO DAILY [facility] Miscellaneous Information 1 each 02/15/18 10:53 Rx Info: Iv Contrast Was Given MISCELLANE 02/17/18 10:53 DAILY PRN Per Protocol Miscellaneous Information 1 each 02/15/18 18:43 Magnesium Per Protocol MISCELLANE DAILY PRN Per Protocol Protocol Naloxone HCl 0.2 mg 02/15/18 12:44 Narcan IV Q2M PRN Opioid Reversal Pantoprazole Sodium 40 mg 02/16/18 07:30 02/16/18 07:07 Protonix PO 40 mg AC-[id number] [facility] Administration Intake and Output 02/15/18 02/16/18 02/16/18 22:59 06:59 14:59 Intake Total 1540 450 Output Total 200 600 Balance 1340 -150 Intake: Amount of Fluid Infused ( 1300 ml) Intake, IV Titration 300 Amount Magnesium Sulfate-D5w Pmx 300 1 gm In Dextrose/Water 1 100ml.bag @ 100 mls/hr IVPB Q1H [facility] Rx#: [id number] Oral 240 150 Output: Urine 200 600 Other: Voiding Method Incontinent Urinal Incontinent # Voids 1 1 # Bowel Movements 1 Weight 81.5 kg 02/16/18 05:42 02/16/18 05:42 Assessment and Plan Assessment: assessment #1 abdominal discomfort #2 dilated rectosigmoid colon #3 mildly abnormal cardiac enzymes #4 aortic stenosis, at least moderate to severe #5 peripheral arterial disease #6 diabetes Plan #1 I would consider conservative medical approach at this point in view of his age and asymptomatic state and absence of any chest pain or chest discomfort #2 once he is cleared and no need for surgery on the abdomen I will consider adding antiplatelet with aspirin to the current medical treatment #3 obtain an echocardiogram was Doppler to assess the severity of the aortic stenosis #4 follow-up with the patient. Thank you for allowing us participate in his care and we'll continue following up with him
[2018-02-16] MEDS ORDERED: BISACODYL 10 MG SUPP RECTAL PRN (09:24)
--- NOTE | 2018-02-16 09:29 | P.HPIM ---
History of Present Illness H&P Date: 02/16/18 Chief Complaint: abdominal pain 87-year-old male who presented to the emergency room with a chief complaint of abdominal pain, painful bowel movements, and generalized weakness. The patient was recently hospitalized from 02/05/2018 until 02/08/2018 with influenza and COPD exacerbation. The patient was discharged home in stable condition. He reports he was doing well post discharge and spent Easter with his family. He reports abdominal pain that started during the night and also states he had a large painful bowel movement. Admits to some nausea at home with a few small episodes of emesis. He states he feels very weak and fatigued since that time. The patient has a history of COPD, TIA in 1996, diabetes mellitus, hypertension , gastroesophageal reflux disease, osteoarthritis, pulmonary embolus, bowel obstruction requiring surgical intervention, AAA repair in 1995, skin cancer, and depression. The patient is a former cigarette smoker and quit smoking in 1995 after smoking 1-1/2 packs per day since age of 18. The patient also reports daily alcohol use and states he drinks 2-4 beers per day. Acute abdominal series: Nonspecific abdomen with a few scattered prominent small bowel loops. Correlate for enteritis or ileus. Left basilar atelectasis and pleural thickening or tiny effusion. CT of the abdomen and pelvis: Dilation of the rectosigmoid junction up to 6.9 cm with rectal fecal ball suggesting rectal impaction. No proximal obstruction. Enlarging infrarenal abdominal aortic aneurysm now measuring 4.6 3.8 cm. Previous and measuring 3.83.1 cm. Circumferential gastric rugal fold thickening that may relate to incomplete distention although gastritis should also be considered. 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 Cholelithiasis without evidence of acute acute cholecystitis. Nodular opacities of the lung bases appear chronic in comparison to examine 2015. Laboratory data: WBC: 30.8. Hemoglobin 13.0. Platelet count 183. Sodium 138. Potassium 4.0. BUN 39. Creatinine 1.50. GFR 41. Glucose 184. Magnesium 1.3. Lactic acid 4.0. Troponins: 0.211, 0.123, 0.093 Urinalysis reveals: 1+ proteinuria, 3+ glucose. Negative ketones, blood, bilirubin, or leukocyte esterase. The patient was admitted to the hospital under the care of Dr. Cedeño. Review of Systems GENERAL: Positive for generalized weakness and fatigue. Patient denies fever. Denies chills. EYES: Denies blurred vision. Denies vision changes. Denies eye pain. EARS, NOSE, MOUTH, & THROAT: Denies headache. Denies sore throat. Denies ear pain. RESPIRATORY: Denies cough. Denies shortness of breath. Denies sputum production. Denies hemoptysis. CARDIOVASCULAR: Denies chest pain or pressure. Denies palpitations. Denies arrhythmias. GASTROINTESTINAL: Positive for abdominal pain. Positive for painful bowel movement. Positive for nausea and vomiting prior to admission. Currently denies nausea or vomiting. Denies heartburn. Denies blood in the stool. GENITOURINARY: Denies urinary frequency. Denies burning. Denies dysuria. Denies cloudy urine. Denies blood in the urine. MUSCULOSKELETAL: Denies myalgias. Denies joint swelling. Denies decreased range of motion beyond patients baseline. INTEGUMENTARY: Denies pruitis. Denies rash. PSYCHIATRIC: Denies suicidal or homicial ideations. ENDOCRINE: Denies weight change. Denies polydipsia. Denies polyuria. HEMATOLOGIC: Denies bleeding disorders. Past Medical History Past Medical History: Cancer, COPD, CVA/TIA, Diabetes Mellitus, GERD/Reflux, Hypertension, Osteoarthritis (OA), Pulmonary Embolus (PE) Additional Past Medical History / Comment(s): TIAs (1996), falls, squamous cell skin ca, murmur, "leaky haert valve"constipation History of Any Multi-Drug Resistant Organisms: None Reported Past Surgical History: Bowel Resection, Joint Replacement, Orthopedic Surgery Additional Past Surgical History / Comment(s): AAA repair (1995), various procedures to remove skin lesions/cancerous skin lesions , bowel sx d/t obstruction,cataracts. Past Anesthesia/Blood Transfusion Reactions: No Reported Reaction Additional Past Anesthesia/Blood Transfusion Reaction / Comment(s): slow to come out Smoking Status: Former smoker - Past Family History Mother Additional Family Medical History / Comment(s): "old age" at 92 years old Father Family Medical History: Cancer Additional Family Medical History / Comment(s): Hodgkins Lymphoma- at age 53 Medications and Allergies Home Medications Medication Instructions Recorded Confirmed Type Omeprazole 20 mg PO DAILY 10/16/15 02/15/18 History metFORMIN HCL 500 mg PO DAILY 10/16/15 02/15/18 History Allergies Allergy/AdvReac Type Severity Reaction Status Date / Time No Known Allergies Allergy Verified 02/15/18 10:26 Physical Exam Vitals: Vital Signs Temp Pulse Pulse Resp BP BP Pulse Ox 02/16/18 04:00 98.6 F 91 18 121/71 94 L 02/16/18 00:00 98.2 F 88 18 121/88 93 L 02/15/18 20:00 98.2 F 99 18 156/83 96 02/15/18 18:20 97.5 F L 89 20 130/76 90 L 02/15/18 16:32 98.5 F 89 16 133/73 95 02/15/18 15:00 16 02/15/18 14:24 98.0 F 78 18 122/67 94 L 02/15/18 13:16 97.8 F 90 16 121/67 94 L 02/15/18 11:22 98.2 F 95 18 108/59 97 02/15/18 11:06 95 18 115/62 95 02/15/18 09:21 97.9 F 100 20 107/64 89 L Intake and Output 02/15/18 02/16/18 02/16/18 22:59 06:59 14:59 Intake Total 1540 450 Output Total 200 600 Balance 1340 -150 Intake: Amount of Fluid Infused ( 1300 ml) Intake, IV Titration 300 Amount Magnesium Sulfate-D5w Pmx 300 1 gm In Dextrose/Water 1 100ml.bag @ 100 mls/hr IVPB Q1H [facility] Rx#: [id number] Oral 240 150 Output: Urine 200 600 Other: Voiding Method Incontinent Urinal Incontinent # Voids 1 1 # Bowel Movements 1 Weight 81.5 kg GENERAL: This is a 87-year-old male in no apparent distress at the time of examination. Pleasant and cooperative. HEENT: Head is atraumatic, normocephalic. Pupils are equal, round, and reactive to light. Sclerae anicteric. Conjunctivae are clear. Mucus membranes of the mouth are moist. Neck is supple. RESPIRATORY: Clear to ausculation. No wheezes, rales, or rhonchi. No use of accessory muscles. Patient maintaining oxygen saturation greater than 92%. No chest wall tenderness is noted on palpation or with deep breathing. CARDIOVASCULAR: Regular rate and rhythm. S1 and S2 noted. Systolic murmur auscultated. No JVD noted. No S3 or S4 noted. GASTROINTESTINAL: No distention noted. Abdomen soft and round. Normal active bowel sounds auscultated x 4 quadrants. No pain or tenderness noted upon palpation. INTEGUMENTARY: No cyanosis. No jaundice. No rashes noted. No cellulitis noted. EXTREMITIES: 2+ peripheral pulses. No evidence of peripheral edema. No calf tenderness noted. NEUROLOGIC: Cranial nerves II-XII intact. PSYCHIATRIC: Awake, alert, and oriented X 3. Appropriate affect. Intact judgement and insight. Results CBC & Chem 7: 02/16/18 05:42 02/16/18 05:42 Labs: Abnormal Lab Results - Last 24 Hours (Table) 02/15/18 02/15/18 02/15/18 Range/Units 10:25 10:25 10:25 WBC 30.8 H* (3.8-10.6) k/uL RBC (4.30-5.90) m/uL Hgb (13.0-17.5) gm/dL Hct 38.0 L (39.0-53.0) % Plt Count (150-450) k/uL Neutrophils # (1.3-7.7) k/uL Neutrophils # (Manual) 28.00 H (1.3-7.7) k/uL Myelocytes # (Manual) 0.31 H (0) k/uL Sodium (137-145) mmol/L BUN 39 H (9-20) mg/dL Creatinine 1.54 H (0.66-1.25) mg/dL Glucose 184 H (74-99) mg/dL POC Glucose (mg/dL) (75-99) mg/dL Plasma Lactic Acid [place] 4.0 H* (0.7-2.0) mmol/L Calcium (8.4-10.2) mg/dL Magnesium 1.3 L (1.6-2.3) mg/dL Troponin I (0.000-0.034) ng/mL Total Protein 6.0 L (6.3-8.2) g/dL Albumin 3.4 L (3.5-5.0) g/dL Urine Protein (Negative) Urine Glucose (UA) (Negative) Urine Mucus (None) /hpf 02/15/18 02/15/18 02/15/18 Range/Units 10:25 11:05 17:11 WBC (3.8-10.6) k/uL RBC (4.30-5.90) m/uL Hgb (13.0-17.5) gm/dL Hct (39.0-53.0) % Plt Count (150-450) k/uL Neutrophils # (1.3-7.7) k/uL Neutrophils # (Manual) (1.3-7.7) k/uL Myelocytes # (Manual) (0) k/uL Sodium (137-145) mmol/L BUN (9-20) mg/dL Creatinine (0.66-1.25) mg/dL Glucose (74-99) mg/dL POC Glucose (mg/dL) 128 H (75-99) mg/dL Plasma Lactic Acid [place] (0.7-2.0) mmol/L Calcium (8.4-10.2) mg/dL Magnesium (1.6-2.3) mg/dL Troponin I 0.211 H* (0.000-0.034) ng/mL Total Protein (6.3-8.2) g/dL Albumin (3.5-5.0) g/dL Urine Protein 1+ H (Negative) Urine Glucose (UA) 3+ H (Negative) Urine Mucus Rare H (None) /hpf 02/15/18 02/15/18 02/15/18 Range/Units 18:24 21:46 22:29 WBC (3.8-10.6) k/uL RBC (4.30-5.90) m/uL Hgb (13.0-17.5) gm/dL Hct (39.0-53.0) % Plt Count (150-450) k/uL Neutrophils # (1.3-7.7) k/uL Neutrophils # (Manual) (1.3-7.7) k/uL Myelocytes # (Manual) (0) k/uL Sodium (137-145) mmol/L BUN (9-20) mg/dL Creatinine (0.66-1.25) mg/dL Glucose (74-99) mg/dL POC Glucose (mg/dL) 159 H (75-99) mg/dL Plasma Lactic Acid [place] (0.7-2.0) mmol/L Calcium (8.4-10.2) mg/dL Magnesium (1.6-2.3) mg/dL Troponin I 0.123 H* 0.093 H* (0.000-0.034) ng/mL Total Protein (6.3-8.2) g/dL Albumin (3.5-5.0) g/dL Urine Protein (Negative) Urine Glucose (UA) (Negative) Urine Mucus (None) /hpf 02/16/18 02/16/18 02/16/18 Range/Units 05:42 05:42 06:06 WBC 16.2 H (3.8-10.6) k/uL RBC 3.75 L (4.30-5.90) m/uL Hgb 11.2 L (13.0-17.5) gm/dL Hct 33.0 L (39.0-53.0) % Plt Count 134 L (150-450) k/uL Neutrophils # 13.9 H (1.3-7.7) k/uL Neutrophils # (Manual) (1.3-7.7) k/uL Myelocytes # (Manual) (0) k/uL Sodium 135 L (137-145) mmol/L BUN 29 H (9-20) mg/dL Creatinine (0.66-1.25) mg/dL Glucose 106 H (74-99) mg/dL POC Glucose (mg/dL) 106 H (75-99) mg/dL Plasma Lactic Acid [place] (0.7-2.0) mmol/L Calcium 8.3 L (8.4-10.2) mg/dL Magnesium (1.6-2.3) mg/dL Troponin I (0.000-0.034) ng/mL Total Protein (6.3-8.2) g/dL Albumin (3.5-5.0) g/dL Urine Protein (Negative) Urine Glucose (UA) (Negative) Urine Mucus (None) /hpf Microbiology - Last 24 Hours (Table) 02/15/18 10:25 Blood Culture - Final Blood 02/15/18 10:25 Blood Culture Gram Stain - Preliminary Blood Thrombosis Risk Factor Assmnt - Choose All That Apply Any of the Below Risk Factors Present?: Yes Each Factor Represents 1 point: Abnormal pulmonary function (COPD) Other Risk Factors: Yes Each Risk Factor Represents 2 Points: Malignancy Each Risk Factor Represents 3 Points: Age 75 years or older Other congenital or acquired thrombophilia - If yes, enter type in comment: No Thrombosis Risk Factor Assessment Total Risk Factor Score: 6 Thrombosis Risk Factor Assessment Level: High Risk Assessment and Plan Plan: ASSESSMENT: Abdominal pain, present on admission, likely secondary to rectal impaction Lactic acidosis and leukocytosis, meets SIRS criteria, r/o sepsis, present on admission Bacteremia, preliminary blood cultures positive for gram positive cocci, may be contamination Abdominal aortic aneurysm measuring 4.63.8 cm. Previously measuring 3.83.1 cm. Abnormal troponins: 0.211, 0.123, 0.093, cardiology consulted History of TIA in 1995 Diabetes mellitus, type II, hemoglobin A1c 5.8% Recent hospitalization for influenza A and COPD exacerbation Daily alcohol use History of nicotine dependence, in remission, patient quit smoking in 1995 Hypomagnesemia, may be secondary to daily alcohol use, improved with supplementation PLAN: Cardiology on consult. Appreciate recommendations and input Vascular surgery on consult. Appreciate recommendations and input Consults infectious disease secondary to positive blood cultures Repeat blood cultures x 2 to rule out contamination Begin Zosyn every 8 hours Begin Flagyl per Dr. Cedeño Obtain abdominal xray Consult GI per Dr. Cedeño for constipation Consult PT/OT Home meds as appropriate Monitor labs GI prophylaxis: Protonix 40 mg PO Daily DVT prophylaxis: Heparin 5000 units subcu every 8 hours Monitor vital signs and address as appropriate Further recommendations pending patient's course Nurse practitioner note has been reviewed by physician. Signing provider agrees with the documented findings, assessment, and plan of care.
--- NOTE | 2018-02-16 10:46 | XR ---
EXAMINATION TYPE: XR abdomen 1V DATE OF EXAM: 02/16/2018 COMPARISON: NONE INDICATION: Constipation abdomen pain TECHNIQUE: Single view abdomen supine view FINDINGS: Nonspecific bowel gas is present within small bowel loops as well as the colon. No dilated loops of b owel are evident. No mass effect is evident. Psoas margins are normal. Organomegaly is not evident. N o suspicious calcifications are identified. IMPRESSION: 1. Nonspecific abdomen
--- NOTE | 2018-02-16 11:06 | P.GSCN ---
<Madeline Green - Last Filed: 02/16/18 10:52> History of Present Illness Consult date: 02/16/18 Reason for Consult: Abdominal aortic aneurysm, surgical recommendations. Requesting physician: Shar Cedeño History of present illness: This is an 87-year-old gentleman with a previous medical history of diabetes, peripheral vascular disease, abdominal aortic aneurysm with surgical repair in 1995, COPD, CVA, GERD, hypertension, skin cancer, aortic stenosis, and previous tobacco dependence who follows on an outpatient basis with Dr. Montiel. Apparently he presented to the emergency room with complaints of abdominal discomfort, associated with some nausea and vomiting. He had been previously hospitalized last week with influenza and COPD exacerbation. He was feeling well until East night when he had a large painful bowel movement. Upon presentation to the emergency room a CT of the abdomen and pelvis was completed which, among other things, demonstrated an infrarenal fusiform abdominal aortic aneurysm measuring 4.6 x [address] in 2014 demonstrated the same aneurysm measuring 3.8 x 3.1 cm. The patient was admitted for lactic acidosis, sepsis, elevated troponins, and Dr. Aguiar was consulted regarding the increase in size of his AAA. Review of Systems 14 point review systems was completed was negative except as noted. - Constitutional Reports fatigue, Reports weakness - Gastrointestinal Reports as per HPI, Reports abdominal pain, Reports nausea, Reports vomiting Past Medical History Past Medical History: Cancer, COPD, CVA/TIA, Diabetes Mellitus, GERD/Reflux, Hypertension, Osteoarthritis (OA), Pulmonary Embolus (PE) Additional Past Medical History / Comment(s): TIAs (1996), falls, squamous cell skin ca, murmur, "leaky haert valve"constipation History of Any Multi-Drug Resistant Organisms: None Reported Past Surgical History: Bowel Resection, Joint Replacement, Orthopedic Surgery Additional Past Surgical History / Comment(s): AAA repair (1995), various procedures to remove skin lesions/cancerous skin lesions , bowel sx d/t obstruction,cataracts. Past Anesthesia/Blood Transfusion Reactions: No Reported Reaction Additional Past Anesthesia/Blood Transfusion Reaction / Comm: slow to come out Smoking Status: Former smoker - Past Family History Mother Additional Family Medical History / Comment(s): "old age" at 92 years old Father Family Medical History: Cancer Additional Family Medical History / Comment(s): Hodgkins Lymphoma- at age 53 Medications and Allergies Home Medications Medication Instructions Recorded Confirmed Type Omeprazole 20 mg PO DAILY 10/16/15 02/15/18 History metFORMIN HCL 500 mg PO DAILY 10/16/15 02/15/18 History Allergies Allergy/AdvReac Type Severity Reaction Status Date / Time No Known Allergies Allergy Verified 02/15/18 10:26 Surgical - Exam Vital Signs Temp Pulse Resp BP Pulse Ox 97.9 F 100 20 107/64 89 L 02/15/18 09:21 02/15/18 09:21 02/15/18 09:21 02/15/18 09:21 02/15/18 09:21 - General well developed, well nourished, no distress, no pain - Eyes PERRL, normal ocular movement - ENT no hearing loss - Neck trachea midline - Respiratory Lungs sounds diminished bilaterally. Respirations even, nonlabored. Currently on 2 L with oxygen saturation 94%. - Cardiovascular S1, S2 present. Positive systolic murmur. Regular rate and rhythm, sinus rhythm on telemetry. Palpable peripheral pulses bilaterally. No edema present. No calf pain or tenderness noted. - Abdomen No palpable masses felt. Abdomen: soft, non tender, bowel sounds - Genitourinary Deferred - Rectum Deferred - Integumentary Skin is warm and dry with evidence of good perfusion. - Neurologic normal coordination, normal sensation - Musculoskeletal normal gait, normal posture - Psychiatric oriented to time, oriented to person, oriented to place, speech is normal, memory intact Results - Labs 02/16/18 05:42 02/16/18 05:42 Abnormal Lab Results - Last 24 Hours (Table) 02/15/18 02/15/18 02/15/18 Range/Units 10:25 10:25 10:25 WBC (3.8-10.6) k/uL RBC (4.30-5.90) m/uL Hgb (13.0-17.5) gm/dL Hct (39.0-53.0) % Plt Count (150-450) k/uL Neutrophils # (1.3-7.7) k/uL Neutrophils # (Manual) 28.00 H (1.3-7.7) k/uL Myelocytes # (Manual) 0.31 H (0) k/uL Sodium (137-145) mmol/L BUN 39 H (9-20) mg/dL Creatinine 1.54 H (0.66-1.25) mg/dL Glucose 184 H (74-99) mg/dL POC Glucose (mg/dL) (75-99) mg/dL Plasma Lactic Acid [place] 4.0 H* (0.7-2.0) mmol/L Calcium (8.4-10.2) mg/dL Magnesium 1.3 L (1.6-2.3) mg/dL Troponin I (0.000-0.034) ng/mL Total Protein 6.0 L (6.3-8.2) g/dL Albumin 3.4 L (3.5-5.0) g/dL Urine Protein (Negative) Urine Glucose (UA) (Negative) Urine Mucus (None) /hpf 02/15/18 02/15/18 02/15/18 Range/Units 10:25 11:05 17:11 WBC (3.8-10.6) k/uL RBC (4.30-5.90) m/uL Hgb (13.0-17.5) gm/dL Hct (39.0-53.0) % Plt Count (150-450) k/uL Neutrophils # (1.3-7.7) k/uL Neutrophils # (Manual) (1.3-7.7) k/uL Myelocytes # (Manual) (0) k/uL Sodium (137-145) mmol/L BUN (9-20) mg/dL Creatinine (0.66-1.25) mg/dL Glucose (74-99) mg/dL POC Glucose (mg/dL) 128 H (75-99) mg/dL Plasma Lactic Acid [place] (0.7-2.0) mmol/L Calcium (8.4-10.2) mg/dL Magnesium (1.6-2.3) mg/dL Troponin I 0.211 H* (0.000-0.034) ng/mL Total Protein (6.3-8.2) g/dL Albumin (3.5-5.0) g/dL Urine Protein 1+ H (Negative) Urine Glucose (UA) 3+ H (Negative) Urine Mucus Rare H (None) /hpf 02/15/18 02/15/18 02/15/18 Range/Units 18:24 21:46 22:29 WBC (3.8-10.6) k/uL RBC (4.30-5.90) m/uL Hgb (13.0-17.5) gm/dL Hct (39.0-53.0) % Plt Count (150-450) k/uL Neutrophils # (1.3-7.7) k/uL Neutrophils # (Manual) (1.3-7.7) k/uL Myelocytes # (Manual) (0) k/uL Sodium (137-145) mmol/L BUN (9-20) mg/dL Creatinine (0.66-1.25) mg/dL Glucose (74-99) mg/dL POC Glucose (mg/dL) 159 H (75-99) mg/dL Plasma Lactic Acid [place] (0.7-2.0) mmol/L Calcium (8.4-10.2) mg/dL Magnesium (1.6-2.3) mg/dL Troponin I 0.123 H* 0.093 H* (0.000-0.034) ng/mL Total Protein (6.3-8.2) g/dL Albumin (3.5-5.0) g/dL Urine Protein (Negative) Urine Glucose (UA) (Negative) Urine Mucus (None) /hpf 02/16/18 02/16/18 02/16/18 Range/Units 05:42 05:42 06:06 WBC 16.2 H (3.8-10.6) k/uL RBC 3.75 L (4.30-5.90) m/uL Hgb 11.2 L (13.0-17.5) gm/dL Hct 33.0 L (39.0-53.0) % Plt Count 134 L (150-450) k/uL Neutrophils # 13.9 H (1.3-7.7) k/uL Neutrophils # (Manual) (1.3-7.7) k/uL Myelocytes # (Manual) (0) k/uL Sodium 135 L (137-145) mmol/L BUN 29 H (9-20) mg/dL Creatinine (0.66-1.25) mg/dL Glucose 106 H (74-99) mg/dL POC Glucose (mg/dL) 106 H (75-99) mg/dL Plasma Lactic Acid [place] (0.7-2.0) mmol/L Calcium 8.3 L (8.4-10.2) mg/dL Magnesium (1.6-2.3) mg/dL Troponin I (0.000-0.034) ng/mL Total Protein (6.3-8.2) g/dL Albumin (3.5-5.0) g/dL Urine Protein (Negative) Urine Glucose (UA) (Negative) Urine Mucus (None) /hpf Microbiology - Last 24 Hours (Table) 02/15/18 10:25 Blood Culture - Final Blood 02/15/18 10:25 Blood Culture Gram Stain - Preliminary Blood Diabetes panel 02/15/18 02/15/18 02/16/18 Range/Units 10:25 10:25 05:42 Sodium 138 135 L (137-145) mmol/L Potassium 4.0 3.7 (3.5-5.1) mmol/L Chloride 98 99 (98-107) mmol/L Carbon Dioxide 24 27 (22-30) mmol/L BUN 39 H 29 H (9-20) mg/dL Creatinine 1.54 H 1.20 (0.66-1.25) mg/dL Glucose 184 H 106 H (74-99) mg/dL Hemoglobin A1c 5.8 (4.0-6.0) % Calcium 8.7 8.3 L (8.4-10.2) mg/dL AST 22 (17-59) U/L ALT 27 (21-72) U/L Alkaline Phosphatase 66 (38-126) U/L Total Protein 6.0 L (6.3-8.2) g/dL Albumin 3.4 L (3.5-5.0) g/dL Calcium panel 02/15/18 02/16/18 Range/Units 10:25 05:42 Calcium 8.7 8.3 L (8.4-10.2) mg/dL Albumin 3.4 L (3.5-5.0) g/dL Pituitary panel 02/15/18 02/16/18 Range/Units 10:25 05:42 Sodium 138 135 L (137-145) mmol/L Potassium 4.0 3.7 (3.5-5.1) mmol/L Chloride 98 99 (98-107) mmol/L Carbon Dioxide 24 27 (22-30) mmol/L BUN 39 H 29 H (9-20) mg/dL Creatinine 1.54 H 1.20 (0.66-1.25) mg/dL Glucose 184 H 106 H (74-99) mg/dL Calcium 8.7 8.3 L (8.4-10.2) mg/dL Adrenal panel 02/15/18 02/16/18 Range/Units 10:25 05:42 Sodium 138 135 L (137-145) mmol/L Potassium 4.0 3.7 (3.5-5.1) mmol/L Chloride 98 99 (98-107) mmol/L Carbon Dioxide 24 27 (22-30) mmol/L BUN 39 H 29 H (9-20) mg/dL Creatinine 1.54 H 1.20 (0.66-1.25) mg/dL Glucose 184 H 106 H (74-99) mg/dL Calcium 8.7 8.3 L (8.4-10.2) mg/dL Total Bilirubin 0.8 (0.2-1.3) mg/dL AST 22 (17-59) U/L ALT 27 (21-72) U/L Alkaline Phosphatase 66 (38-126) U/L Total Protein 6.0 L (6.3-8.2) g/dL Albumin 3.4 L (3.5-5.0) g/dL - Imaging Abdominal x-ray: report reviewed, image reviewed CT scan - abdomen: report reviewed, image reviewed Assessment and Plan (1) Abdominal aortic aneurysm Current Visit: Yes Status: Chronic Code(s): I71.4 - ABDOMINAL AORTIC ANEURYSM, WITHOUT RUPTURE SNOMED Code(s): 863756391 (2) Aortic stenosis Current Visit: Yes Status: Chronic Code(s): I35.0 - NONRHEUMATIC AORTIC ( VALVE) STENOSIS SNOMED Code(s): 21859086 (3) Elevated troponin Current Visit: Yes Status: Acute Code(s): R74.8 - ABNORMAL LEVELS OF OTHER SERUM ENZYMES SNOMED Code(s): 220000757 (4) Lactic acid acidosis Current Visit: Yes Status: Acute Code(s): E87.2 - ACIDOSIS SNOMED Code(s) : 22066091 (5) SIRS (systemic inflammatory response syndrome) Current Visit: Yes Status: Acute Code(s): R65.10 - SIRS OF NON-INFECTIOUS ORIGIN W/O ACUTE ORGAN DYSFUNCTION SNOMED Code(s): 581014117 (6) Diabetes Current Visit: Yes Status: Chronic Code(s): E11.9 - TYPE 2 DIABETES MELLITUS WITHOUT COMPLICATIONS SNOMED Code(s): 60818559 Plan: The patient was seen and examined at the bedside. Chart/diagnostics were reviewed. The case was discussed with Dr. Aguiar. Due to the patient's age, other medical comorbidities, and size of the aneurysm no surgical intervention is warranted. We recommend good blood pressure control. Continue to monitor the aneurysm. This was discussed in detail with the patient and he is agreeable , does not feel he would want surgery anyways. Continued medical management per primary care service. Thank you Dr. Cedeño for this consult. Please call us with any questions. Time with Patient: Greater than 30 <Angel Aguiar - Last Filed: 02/17/18 08:08> History of Present Illness History of present illness: Nurse practitioner notes reviewed and accepted. Recommend continued medical therapy. We'll be happy to follow as an outpatient basis for aneurysm surveillance if desired by patient and family. Surgical - Exam Osteopathic Statement: *. No significant issues noted on an osteopathic structural exam other than those noted in the History and Physical/Consult. Vital Signs Temp Pulse Resp BP Pulse Ox 97.9 F 100 20 107/64 89 L 02/15/18 09:21 02/15/18 09:21 02/15/18 09:21 02/15/18 09:21 02/15/18 09:21 Results - Labs 02/17/18 06:21 02/17/18 06:21 Abnormal Lab Results - Last 24 Hours (Table) 02/16/18 02/16/18 02/16/18 Range/Units 11:14 16:37 20:53 WBC (3.8-10.6) k/uL RBC (4.30-5.90) m/uL Hgb (13.0-17.5) gm/dL Hct (39.0-53.0) % Plt Count (150-450) k/uL Neutrophils # (1.3-7.7) k/uL Sodium (137-145) mmol/L BUN (9-20) mg/dL Glucose (74-99) mg/dL POC Glucose (mg/dL) 124 H 215 H 134 H (75-99) mg/dL Calcium (8.4-10.2) mg/dL 02/17/18 02/17/18 02/17/18 Range/Units 06:07 06:21 06:21 WBC 11.6 H (3.8-10.6) k/uL RBC 3.53 L (4.30-5.90) m/uL Hgb 10.6 L (13.0-17.5) gm/dL Hct 30.9 L (39.0-53.0) % Plt Count 120 L (150-450) k/uL Neutrophils # 9.9 H (1.3-7.7) k/uL Sodium 132 L (137-145) mmol/L BUN 21 H (9-20) mg/dL Glucose 111 H (74-99) mg/dL POC Glucose (mg/dL) 117 H (75-99) mg/dL Calcium 8.0 L (8.4-10.2) mg/dL Microbiology - Last 24 Hours (Table) 02/15/18 10:25 Blood Culture Gram Stain - Preliminary Blood Blood Culture - Preliminary Coagulase Negative Staph 02/15/18 10:25 Blood Culture - Final Blood Diabetes panel 02/17/18 Range/Units 06:21 Sodium 132 L (137-145) mmol/L Potassium 3.9 (3.5-5.1) mmol/L Chloride 101 (98-107) mmol/L Carbon Dioxide 22 (22-30) mmol/L BUN 21 H (9-20) mg/dL Creatinine 1.08 (0.66-1.25) mg/dL Glucose 111 H (74-99) mg/dL Calcium 8.0 L (8.4-10.2) mg/dL Calcium panel 02/17/18 Range/Units 06:21 Calcium 8.0 L (8.4-10.2) mg/dL Pituitary panel 02/17/18 Range/Units 06:21 Sodium 132 L (137-145) mmol/L Potassium 3.9 (3.5-5.1) mmol/L Chloride 101 (98-107) mmol/L Carbon Dioxide 22 (22-30) mmol/L BUN 21 H (9-20) mg/dL Creatinine 1.08 (0.66-1.25) mg/dL Glucose 111 H (74-99) mg/dL Calcium 8.0 L (8.4-10.2) mg/dL Adrenal panel 02/17/18 Range/Units 06:21 Sodium 132 L (137-145) mmol/L Potassium 3.9 (3.5-5.1) mmol/L Chloride 101 (98-107) mmol/L Carbon Dioxide 22 (22-30) mmol/L BUN 21 H (9-20) mg/dL Creatinine 1.08 (0.66-1.25) mg/dL Glucose 111 H (74-99) mg/dL Calcium 8.0 L (8.4-10.2) mg/dL
[2018-02-16 11:17] LABS: Glucose,Whole Blood 124 mg/dL (75-99)
--- NOTE | 2018-02-16 11:35 | ECHOF ---
Referral Reason:as MEASUREMENTS -------- HEIGHT: 182.9 cm WEIGHT: 81.2 kg BP: 121/71 IVSd: 1.4 cm (0.6 - 1.1) LVIDd: 2.9 cm (3.9 - 5.3) LVPWd: 1.1 cm (0.6 - 1.1) IVSs: 1.4 cm LVIDs: 2.9 cm LVPWs: 1.3 cm Ao Diam: 3.9 cm (2.0 - 3.7) MV EXCURSION: 15.119 mm (> 18.000) MV EF SLOPE: 73 mm/s (70 - 150) EPSS: 1.1 cm MV E Manuel: 0.67 m/s MV DecT: 326 ms MV A Manuel: 0.90 m/s MV E/A Ratio: 0.74 AV maxP.68 mmHg AV meanP.54 mmHg RAP: 5.00 mmHg RVSP: 17.74 mmHg FINDINGS -------- Sinus rhythm. This was a technically adequate study. The left ventricular size is normal. There is mild concentric left ventricular hypertrophy. Overa ll left ventricular systolic function is low-normal with, an EF between 50 - 55 %. The right ventricle is normal in size. The right atrial size is normal. The aortic valve was not well visualized. There is moderate aortic valve sclerosis. There is mode [id number] aortic stenosis present. Peak/mean gradient across the Aortic Valve is 54.68mmHg / 3 2.54mmHg. Mild mitral annular calcification present. Mild mitral regurgitation is present. Mild tricuspid regurgitation present. There is no evidence of pulmonary hypertension. The right v entricular systolic pressure, as measured by Doppler, is 17.74mmHg. There is no pulmonic regurgitation present. The aortic root size is normal. There is no pericardial effusion. CONCLUSIONS -------- 1. This was a technically adequate study. 2. The left ventricular size is normal. 3. There is mild concentric left ventricular hypertrophy. 4. Overall left ventricular systolic function is low-normal with, an EF between 50 - 55 %. 5. The aortic valve was not well visualized. 6. There is moderate aortic valve sclerosis. 7. There is [id number] aortic stenosis present. 8. Peak/mean gradient across the Aortic Valve is 54.68mmHg / 32.54mmHg. 9. Mild mitral annular calcification present. 10. Mild mitral regurgitation is present. 11. Mild tricuspid regurgitation present. 12. There is no evidence of pulmonary hypertension. 13. The right ventricular systolic pressure, as measured by Doppler, is 17.74mmHg. 14. There is no pulmonic regurgitation present. 15. The aortic root size is normal. 16. There is no pericardial effusion. PLANNER INTERN: Carey Flor RDCS
[2018-02-16] MEDS: metroNIDAZOLE-NS PMX 500 MG in SALINE 1 100ML.BAG IVPB SCH ×2 (15:09→23:22)
[2018-02-16] MEDS: DOCUSATE 100 MG CAP PO SCH ×2 (15:09→20:20)
[2018-02-16 16:41] LABS: Glucose,Whole Blood 215 mg/dL (75-99)
--- NOTE | 2018-02-16 17:50 | CONS ---
CONSULTATION DATE OF SERVICE: 02/16/2018 REASON FOR CONSULTATION: Bacteremia. HISTORY OF PRESENT ILLNESS: The patient is an 87-year-old male who presented to the ER at [facility] yesterday morning with the chief complaints of weakness and a pressure in his abdominal area. He described it as feeling as though he was having a bowel movement but did not. Patient did have a large painful bowel movement the night prior. He presented to hospital with abdominal discomfort, mostly in the lower abdominal area, more colicky in nature, 2 to 3 out of 10, for the last day or two and progressive weakness. He presented to the hospital. The patient has felt nauseated and did have a few non-bloody and non-bilious episodes of vomiting. He did have some chills but no high-grade fever. With these symptoms the patient presented to the [facility] ER, where the patient was evaluated by the ER physician. The patient did have elevated white count of 30,000 on admission. The patient had blood cultures obtained which are coming back positive for Gram-positive cocci in chains. The patient did have a CT of abdomen and pelvis done yesterday which showed dilatation of the rectosigmoid junction up to 6.9 cm with intraluminal rectal fecal ball suggestive of rectal impaction, and abdominal aortic aneurysm. Patient's blood culture are coming back positive for Gram- positive cocci. Hence Infectious Disease was consulted for further recommendations regarding antibiotic therapy. REVIEW OF SYSTEMS: CONSTITUTIONAL: Positive for weakness, some chills but no high-grade fever. EYES: No complaint. ENT: No complaint. RESPIRATORY: No complaint. CARDIOVASCULAR: No complaint. GENITOURINARY: No complaint. GASTROINTESTINAL: As per HPI. MUSCULOSKELETAL: No complaint. INTEGUMENTARY: No complaint. PSYCHOLOGICAL: No complaint. ENDOCRINE: No complaint. NEUROLOGICAL: No complaint. PAST MEDICAL HISTORY: 1. Hypertension. 2. Osteoarthritis. 3. PE. 4. Diabetes mellitus. 5. Gastroesophageal reflux disease. 6. CVA, TIA. 7. COPD. 8. Skin cancer. 9. Leaky valve. PAST SURGICAL HISTORY: 1. Abdominal aortic aneurysm repair. 2. Bowel resection secondary to obstruction. 3. Cataracts. SOCIAL HISTORY: Remote history of smoking. No drinking or drug use. FAMILY HISTORY: Mother of old age at 92. Father with history of Hodgkin's lymphoma. ALLERGIES: NO KNOWN DRUG ALLERGIES. CURRENT MEDICATIONS: 1. Dulcolax. 2. Colace. 3. Heparin. 4. NovoLog. 5. Magnesium citrate. 6. Glucophage. 7. Flagyl. 8. Zosyn that started this morning. PHYSICAL EXAMINATION: Blood pressure is 131/82 with a pulse of 78, temperature 98.7. He is 93% on room air. General description is an elderly male lying in bed in no distress with no tachypnea or accessory muscle of respiration use. HEENT examination shows pallor. No scleral icterus. Oral mucosa membrane is moist. No pharyngeal erythema or thrush. NECK: Trachea is central. No thyromegaly. LUNGS: Unlabored breathing. Clear to auscultation anteriorly. No wheeze or crackle. HEART: S1, S2. Regular rate and rhythm. No loud murmur. ABDOMEN: Soft. Mildly tender in left lower quadrant area. There was no guarding or rigidity. No organomegaly. EXTREMITIES: No edema of feet. SKIN EXAMINATION: No rash or mass palpable. Neurologically patient is awake, alert, oriented x3. Mood and affect normal. LABS: Hemoglobin 11.2, white count 16.2 with a BUN of 29, creatinine 1.20. Blood cultures with Gram-positive cocci in groups. DIAGNOSTIC IMPRESSION AND PLAN: Patient presented to hospital with abdominal pain in a patient who does have evidence of a rectal impaction and constipation, now with evidence of Gram-positive bacteremia with Gram-positive cocci in chains; could be likely an enterococcus and likely abdominal source. Patient has no other clinical focus for this infection. No evidence of any pneumonia clinically. No evidence of any cellulitis or joint swelling. PLAN: 1. Blood cultures repeated to make sure no evidence of any persistent bacteremia. 2. Antibiotic in the form of Zosyn should provide adequate coverage for enterococcus or other Gram-negative bacteria most common with intraabdominal infection. 3. Gentle IV fluid. 4. Relief of his constipation. 5. Depending upon his clinical response as well as cultures, will adjust his medications further if needed. Thank you for this consultation. Will follow this patient along with you. MMODL / IJN: [id number] /
[2018-02-16 20:54] LABS: Glucose,Whole Blood 134 mg/dL (75-99)
[2018-02-17] MEDS: PIPERACILLIN-TAZOBACTAM 3.375 GM in DEXTROSE/WATER 1 50ML.BAG IVPB SCH ×4 (00:36→23:37)
[2018-02-17] MEDS: SODIUM CHLORIDE 0.9% 1,000 ML IV SCH ×3 (06:06→14:25)
[2018-02-17 06:09] LABS: Glucose,Whole Blood 117 mg/dL (75-99)
[2018-02-17] MEDS: INSULIN ASPART 100 UNIT/ML 1 ML 10 ML VIAL SQ SCH ×4 (06:25→21:31)
[2018-02-17] MEDS: PANTOPRAZOLE 40 MG TABLET PO SCH (06:28)
[2018-02-17 06:56] LABS: Potassium 3.9 mmol/L (3.5-5.1)
[2018-02-17 07:02] LABS: Basophils % (A) 0 %; Eosinophils # (A) 0.1 k/uL (0-0.7); Eosinophils % (A) 1 %; HCT 30.9 % (39.0-53.0); HGB 10.6 gm/dL (13.0-17.5); Lymphocytes # (A) 1.1 k/uL (1.0-4.8); Lymphocytes % (A) 10 %; MCH 29.9 pg (25.0-35.0); MCHC 34.2 g/dL (31.0-37.0); MCV 87.5 fL (80.0-100.0); Monocytes # (A) 0.4 k/uL (0-1.0); Monocytes % (A) 3 %; Neutrophils # (A) 9.9 k/uL (1.3-7.7); Neutrophils % (A) 85 %; Platelet Count 120 k/uL (150-450); RBC 3.53 m/uL (4.30-5.90); RDW 13.8 % (11.5-15.5); WBC 11.6 k/uL (3.8-10.6)
[2018-02-17] MEDS ORDERED: ACETAMINOPHEN TAB 325 MG TAB PO PRN (08:21)
[2018-02-17] MEDS: metroNIDAZOLE-NS PMX 500 MG in SALINE 1 100ML.BAG IVPB SCH (08:30)
[2018-02-17] MEDS: metFORMIN 500 MG TAB PO SCH (08:30)
[2018-02-17] MEDS: DOCUSATE 100 MG CAP PO SCH ×2 (08:30→20:33)
[2018-02-17] MEDS: HEPARIN SODIUM,PORCINE 5,000 UNIT/ML 1 ML VIAL SQ SCH ×2 (08:35→16:07)
--- NOTE | 2018-02-17 09:15 | XR ---
EXAMINATION TYPE: XR chest 2V DATE OF EXAM: 02/17/2018 COMPARISON: 02/05/2018 HISTORY: 87-year-old male coughing and shortness of breath TECHNIQUE: Frontal and lateral views FINDINGS: Rightward patient rotation and excessive lordotic positioning limits assessment. Heart appears mildly enlarged with elongation/ectasia of the thoracic aorta. Persistent elevation of the left hemidiaphra gm though now with small to moderate pleural effusions and bibasilar densities. IMPRESSION: Limited rotated and lordotic exam. There appears to be mild cardiomegaly with small to moderate effus ions on the lateral view. Adjacent bibasilar atelectasis and/or consolidation.
[2018-02-17 11:37] LABS: Glucose,Whole Blood 145 mg/dL (75-99)
--- NOTE | 2018-02-17 13:36 | PN ---
PROGRESS NOTE DATE OF SERVICE: 02/17/2018 REASON FOR FOLLOWUP: Positive blood cultures with possible abdominal source. INTERVAL HISTORY: The patient is afebrile. He did complain of some shortness of breath and cough last night, mostly bringing up some clear sputum. No purulence. No chest pain. No nausea, vomiting. No abdominal pain and his constipation resolved. PHYSICAL EXAMINATION: On examination, blood pressure is 109/57, pulse of 80, temperature 96.8. He is 94% on 2 L nasal cannula. General description is an elderly male up in the bed in no distress. RESPIRATORY SYSTEM: Unlabored breathing with decreased breath sounds in the bases, no wheeze. HEART: S1, S2. Regular rate and rhythm. ABDOMEN: Soft, no tenderness. EXTREMITIES; No edema of feet. LABS: BUN of 21, creatinine 1.08. Hemoglobin 10.6, white count of 11.6. Blood culture coagulase negative Staph. Repeat blood culture has been negative. DIAGNOSTIC IMPRESSION AND PLAN: 1. Patient with a positive blood culture with coagulase-negative Staphylococcus likely skin contamination. No need for any vancomycin therapy for the same. 2. Patient does have a elevated white count and abdominal symptom with evidence of some fecal impaction. Source is likely abdominal, white count improving on the Zosyn with a plan to finish therapy with a short course of oral Augmentin once stable for discharge from admitting team. Plan of care was discussed with the admitting team. Continue supportive care. ANA / JIM: [id number] /
--- NOTE | 2018-02-17 14:02 | P.PN ---
Subjective Progress Note Date: 02/17/18 87-year-old male who presented to the emergency room with a chief complaint of abdominal pain, painful bowel movements, and generalized weakness. The patient was recently hospitalized from 02/05/2018 until 02/08/2018 with influenza and COPD exacerbation. The patient was discharged home in stable condition. He reports he was doing well post discharge and spent Easter with his family. He reports abdominal pain that started during the night and also states he had a large painful bowel movement. Admits to some nausea at home with a few small episodes of emesis. He states he feels very weak and fatigued since that time. The patient has a history of COPD, TIA in 1996, diabetes mellitus, hypertension , gastroesophageal reflux disease, osteoarthritis, pulmonary embolus, bowel obstruction requiring surgical intervention, AAA repair in 1995, skin cancer, and depression. The patient is a former cigarette smoker and quit smoking in 1995 after smoking 1-1/2 packs per day since age of 18. The patient also reports daily alcohol use and states he drinks 2-4 beers per day. Acute abdominal series: Nonspecific abdomen with a few scattered prominent small bowel loops. Correlate for enteritis or ileus. Left basilar atelectasis and pleural thickening or tiny effusion. CT of the abdomen and pelvis: Dilation of the rectosigmoid junction up to 6.9 cm with rectal fecal ball suggesting rectal impaction. No proximal obstruction. Enlarging infrarenal abdominal aortic aneurysm now measuring 4.6 3.8 cm. Previous and measuring 3.83.1 cm. Circumferential gastric rugal fold thickening that may relate to incomplete distention although gastritis should also be considered. 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 Cholelithiasis without evidence of acute acute cholecystitis. Nodular opacities of the lung bases appear chronic in comparison to examine 2015. Laboratory data: WBC: 30.8. Hemoglobin 13.0. Platelet count 183. Sodium 138. Potassium 4.0. BUN 39. Creatinine 1.50. GFR 41. Glucose 184. Magnesium 1.3. Lactic acid 4.0. Troponins: 0.211, 0.123, 0.093 Urinalysis reveals: 1+ proteinuria, 3+ glucose. Negative ketones, blood, bilirubin, or leukocyte esterase. The patient was admitted to the hospital under the care of Dr. Cedeño. 02/17/2018 Patient seen and examined at the bedside on rounds with Dr. Cedeño. Patient does report frequent coughing. Chest xray this morning reveals mild cardiomegaly with small to moderate effusions on the lateral view. Adjacent bibasilar atelectasis and/or consolidation. Patient is on 2L NC with oxygen saturations greater than 92%. Last blood pressure recorded is from 0400 and is 159/85. Heart rate is in the 80s. Temperate 99.5. Infectious disease was consulted yesterday secondary to positive blood cultures growing gram positive cocci. Patient was started on zosyn and flagyl. WBC this morning is 11.6 down from 16.2. Final blood culture report is positive for coagulase negative staph. Repeat blood cultures were drawn yesterday and are currently pending. Abdominal xray completed 02/16/2018 reveals nonspecific bowel gas pattern and no evidence of dilated loops of bowel. Echocardiogram was completed on 02/16/2018 revealing ejection fraction of 50-55%, moderate to severe aortic stenosis, mild mitral regurgitation, and mild tricuspid regurgitation. Objective - Vital Signs Vital signs: Vital Signs Temp 99.5 F 02/17/18 03:43 Pulse 86 02/17/18 03:46 Resp 18 02/17/18 03:46 BP 159/85 02/17/18 03:43 Pulse Ox 94 L 02/17/18 03:43 Intake & Output 02/16/18 02/17/18 02/17/18 18:59 06:59 18:59 Intake Total 2582 200 240 Output Total 750 400 Balance 1832 -200 240 Weight 81.5 kg Intake: Intake, IV Titration 1200 100 Amount Piperacillin-Tazobactam 3 100 .375 gm In Dextrose/Water 1 50ml.bag @ 12.5 mls/hr IVPB Q8HR [facility] Rx#: [id number] Sodium Chloride 0.9% 1, 1000 000 ml @ 100 mls/hr IV . Q10H [facility] Rx#:[id number] metroNIDAZOLE-NS PMX 500 100 100 mg In Saline 1 100ml.bag @ 100 mls/hr IVPB Q8HR [facility] Rx#:[id number] Oral 1382 100 240 Output: Urine 750 400 Other: Voiding Method Urinal Urinal # Voids 1 - Exam GENERAL: This is a 87-year-old male in no apparent distress at the time of examination. Pleasant and cooperative. HEENT: Head is atraumatic, normocephalic. Pupils are equal, round, and reactive to light. Sclerae anicteric. Conjunctivae are clear. Mucus membranes of the mouth are moist. Neck is supple. RESPIRATORY: Clear to ausculation, diminished at the bases. No wheezes, rales, or rhonchi. No use of accessory muscles. Patient maintaining oxygen saturation greater than 92%. No chest wall tenderness is noted on palpation or with deep breathing. CARDIOVASCULAR: Regular rate and rhythm. S1 and S2 noted. Systolic murmur auscultated. No JVD noted. No S3 or S4 noted. GASTROINTESTINAL: No distention noted. Abdomen soft and round. Normal active bowel sounds auscultated x 4 quadrants. No pain or tenderness noted upon palpation. INTEGUMENTARY: No cyanosis. No jaundice. No rashes noted. No cellulitis noted. EXTREMITIES: 2+ peripheral pulses. No evidence of peripheral edema. No calf tenderness noted. NEUROLOGIC: Cranial nerves II-XII intact. PSYCHIATRIC: Awake, alert, and oriented X 3. Appropriate affect. Intact judgement and insight. - Labs CBC & Chem 7: 02/17/18 06:21 02/17/18 06:21 Labs: Abnormal Lab Results - Last 24 Hours (Table) 02/16/18 02/16/18 02/16/18 Range/Units 11:14 16:37 20:53 WBC (3.8-10.6) k/uL RBC (4.30-5.90) m/uL Hgb (13.0-17.5) gm/dL Hct (39.0-53.0) % Plt Count (150-450) k/uL Neutrophils # (1.3-7.7) k/uL Sodium (137-145) mmol/L BUN (9-20) mg/dL Glucose (74-99) mg/dL POC Glucose (mg/dL) 124 H 215 H 134 H (75-99) mg/dL Calcium (8.4-10.2) mg/dL 02/17/18 02/17/18 02/17/18 Range/Units 06:07 06:21 06:21 WBC 11.6 H (3.8-10.6) k/uL RBC 3.53 L (4.30-5.90) m/uL Hgb 10.6 L (13.0-17.5) gm/dL Hct 30.9 L (39.0-53.0) % Plt Count 120 L (150-450) k/uL Neutrophils # 9.9 H (1.3-7.7) k/uL Sodium 132 L (137-145) mmol/L BUN 21 H (9-20) mg/dL Glucose 111 H (74-99) mg/dL POC Glucose (mg/dL) 117 H (75-99) mg/dL Calcium 8.0 L (8.4-10.2) mg/dL Microbiology - Last 24 Hours (Table) 02/15/18 10:25 Blood Culture Gram Stain - Preliminary Blood Blood Culture - Preliminary Coagulase Negative Staph 02/15/18 10:25 Blood Culture - Final Blood Assessment and Plan Plan: ASSESSMENT: Abdominal pain, present on admission, likely secondary to rectal impaction, resolved Lactic acidosis and leukocytosis, meets SIRS criteria, r/o sepsis, present on admission Gram positive bacteremia, contaminated specimen as cultures are positive for coagulase negative staph Abdominal aortic aneurysm measuring 4.63.8 cm. Previously measuring 3.83.1 cm. Abnormal troponins: 0.211, 0.123, 0.093, cardiology consulted History of TIA in 1995 Diabetes mellitus, type II, hemoglobin A1c 5.8% Recent hospitalization for influenza A and COPD exacerbation Daily alcohol use History of nicotine dependence, in remission, patient quit smoking in 1995 Hypomagnesemia, may be secondary to daily alcohol use, improved with supplementation PLAN: Consult pulmonary per Dr. Cedeño to evaluate patient Discontinue IV fluids Mucinex q 12 hours Incentive spirometer 10 times an hour Cardiology on consult. Appreciate recommendations and input Vascular surgery on consult. Appreciate recommendations and input No surgical intervention from vascular Infectious disease on consult. Appreciate recommendations and input Await results of repeat blood cultures GI on consult for constipation. Await further input and recommendations PT/OT Home meds as appropriate Monitor labs GI prophylaxis: Protonix 40 mg PO Daily DVT prophylaxis: Heparin 5000 units subcu every 8 hours Monitor vital signs and address as appropriate Further recommendations pending patient's course Discharge planning: Likely subacute rehab at the time of discharge Consult social work Nurse practitioner note has been reviewed by physician. Signing provider agrees with the documented findings, assessment, and plan of care.
--- NOTE | 2018-02-17 14:35 | P.PN ---
Subjective Progress Note Date: 02/17/18 This is a pleasant 87-year-old gentleman with past medical history significant for diabetes, peripheral vascular disease with prior abdominal aortic aneurysm surgery, who presented to the hospital mainly with complaints of abdominal discomfort. He underwent a CT of the abdomen which revealed dilated rectosigmoid junction. He did undergo abdominal surgery about a year ago according to his son for lysis of adhesions. Hemodynamically the patient has been stable with normal heart rate normal blood pressure. Echo performed in 2015 revealed moderate aortic stenosis with a normal left ventricular systolic function. The cardiac enzymes were checked and came back to be slightly abnormal, not consistent with acute coronary syndrome. EKG showed sinus rhythm without any ischemic ST or T-wave changes. Echocardiogram with Doppler study was performed which revealed an ejection fraction of 50-55%. Moderate to severe aortic stenosis present with a peak/mean gradient across the aortic valve of 54.68/32.54 mg of mercury. At pressure today 110/60 heart rate in the 80s, 94% on 2 L of oxygen. White blood cell count 11.6, hemoglobin 10.6, platelet count 120. Sodium 132, potassium 3.9, BUN 21, creatinine 1.0. Objective - Vital Signs Vital signs: Vital Signs Temp 96.8 F L 02/17/18 12:53 Pulse 80 02/17/18 12:53 Resp 16 02/17/18 12:53 BP 109/67 02/17/18 12:53 Pulse Ox 94 L 02/17/18 12:53 Intake & Output 02/16/18 02/17/18 02/17/18 18:59 06:59 18:59 Intake Total 2582 200 1810 Output Total 750 400 400 Balance 1832 -200 1410 Weight 81.5 kg Intake: Intake, IV Titration 1200 100 450 Amount Piperacillin-Tazobactam 3 100 50 .375 gm In Dextrose/Water 1 50ml.bag @ 12.5 mls/hr IVPB Q8HR [facility] Rx#: [id number] Sodium Chloride 0.9% 1, 1000 300 000 ml @ 20 mls/hr IV . Q24H [facility] Rx#:[id number] metroNIDAZOLE-NS PMX 500 100 100 100 mg In Saline 1 100ml.bag @ 100 mls/hr IVPB Q8HR [facility] Rx#:[id number] Oral 1255 [id number] Output: Urine 750 400 400 Other: Voiding Method Urinal Urinal Urinal # Voids 1 - Exam PHYSICAL EXAMINATION: HEENT: Head is atraumatic, normocephalic. Pupils equal, round. Neck is supple. There is no elevated jugular venous pressure. HEART EXAMINATION: Heart S1 S2 1 systolic ejection murmur is heard. CHEST EXAMINATION: Lungs reveal diminished air entry to bilateral bases. ABDOMEN: Soft, nontender. Bowel sounds are heard. No organomegaly noted. EXTREMITIES: 2+ peripheral pulses with no evidence of peripheral edema and no calf tenderness noted. NEUROLOGIC patient is awake, alert and oriented -3. . - Labs CBC & Chem 7: 02/17/18 06:21 02/17/18 06:21 Labs: Abnormal Lab Results - Last 24 Hours (Table) 02/16/18 02/16/18 02/17/18 Range/Units 16:37 20:53 06:07 WBC (3.8-10.6) k/uL RBC (4.30-5.90) m/uL Hgb (13.0-17.5) gm/dL Hct (39.0-53.0) % Plt Count (150-450) k/uL Neutrophils # (1.3-7.7) k/uL Sodium (137-145) mmol/L BUN (9-20) mg/dL Glucose (74-99) mg/dL POC Glucose (mg/dL) 215 H 134 H 117 H (75-99) mg/dL Calcium (8.4-10.2) mg/dL 02/17/18 02/17/18 02/17/18 Range/Units 06:21 06:21 11:36 WBC 11.6 H (3.8-10.6) k/uL RBC 3.53 L (4.30-5.90) m/uL Hgb 10.6 L (13.0-17.5) gm/dL Hct 30.9 L (39.0-53.0) % Plt Count 120 L (150-450) k/uL Neutrophils # 9.9 H (1.3-7.7) k/uL Sodium 132 L (137-145) mmol/L BUN 21 H (9-20) mg/dL Glucose 111 H (74-99) mg/dL POC Glucose (mg/dL) 145 H (75-99) mg/dL Calcium 8.0 L (8.4-10.2) mg/dL Microbiology - Last 24 Hours (Table) 02/16/18 08:08 Blood Culture - Preliminary Blood No Growth after 24 hours 02/16/18 08:02 Blood Culture - Preliminary Blood No Growth after 24 hours 02/15/18 10:25 Blood Culture Gram Stain - Preliminary Blood Blood Culture - Preliminary Coagulase Negative Staph Assessment and Plan Plan: Assessment and plan #1 abdominal pain, likely secondary to rectal impaction. #2 abdominal aortic aneurysm #3 abnormal troponins, not consistent with acute coronary syndrome, likely secondary to supply and demand mismatch. Echocardiogram with Doppler study revealed a normal left ventricular systolic function with moderate to severe aortic stenosis. #4 history of TIA # 5 diabetes #6 daily EtOH use Plan From cardiology's perspective, we will recommend to initiate the patient on a baby aspirin daily if no surgical intervention is going to be performed. DNP note has been reviewed, I agree with a documented findings and plan of care. Patient was seen and examined.
--- NOTE | 2018-02-17 15:37 | P.CNPUL ---
History of Present Illness Consult date: 02/17/18 Reason for consult: pleural effusion Chief complaint: Abdominal discomfort and weakness History of present illness: This is an 87-year-old white male with history of multiple medical problems including COPD, previous CVA, history of pulmonary embolism, GERD, hypertension , history of aortic valve disease, and previous aortic aneurysm repair/ abdominal aortic [place] [address] Aguiar. Patient was admitted to the hospital with multiple complaints including intermittent episodes of constipation and abdominal pain, and shortly after he had a bowel movement developed significant and profound weakness, vague aches and pains, and flulike symptoms. He also had some intermittent episodes of productive cough with whitish phlegm. But no fever, no chills, no hemoptysis, no chest pain. No palpitations. Patient was admitted on 02/15/2018, and since then he was seen by many consultants including vascular surgery, cardiology, and infectious disease. One blood culture was positive for coagulase-negative staph, felt to be a contamination. Patient was treated with antibiotics in the form of Zosyn. And felt that he could be switched to Augmentin. This was given by the infectious disease specialist on the case. Follow-up chest x-ray done was limited, and rotated, it showed mild cardiomegaly, and small left pleural effusion. Basilar atelectasis was noted, but looking back at the patient's old x-rays, he always had a left elevated hemidiaphragm consistent with left hemidiaphragm paralysis. This could be confirmed by a sniff test, and after I reviewed the chest x-ray, I felt that mild of the fluid in the left pleural space is so minimal and the patient will likely not benefit from thoracentesis. As a matter of fact that risk of thoracentesis outweighs the benefits at this point. Hence I felt it would be best to leave it alone and follow up on outpatient basis. Review of Systems 14 point review of systems were obtained, please refer to pertinent positives in HPI otherwise remaining systems are negative. Past Medical History Past Medical History: Cancer, COPD, CVA/TIA, Diabetes Mellitus, GERD/Reflux, Hypertension, Osteoarthritis (OA), Pulmonary Embolus (PE) Additional Past Medical History / Comment(s): TIAs (1996), falls, squamous cell skin ca, murmur, "leaky haert valve"constipation History of Any Multi-Drug Resistant Organisms: None Reported Past Surgical History: Bowel Resection, Joint Replacement, Orthopedic Surgery Additional Past Surgical History / Comment(s): AAA repair (1995), various procedures to remove skin lesions/cancerous skin lesions , bowel sx d/t obstruction,cataracts. Past Anesthesia/Blood Transfusion Reactions: No Reported Reaction Additional Past Anesthesia/Blood Transfusion Reaction / Comment(s): slow to come out Smoking Status: Former smoker - Past Family History Mother Additional Family Medical History / Comment(s): "old age" at 92 years old Father Family Medical History: Cancer Additional Family Medical History / Comment(s): Hodgkins Lymphoma- at age 53 Medications and Allergies Home Medications Medication Instructions Recorded Confirmed Type Omeprazole 20 mg PO DAILY 10/16/15 02/15/18 History metFORMIN HCL 500 mg PO DAILY 10/16/15 02/15/18 History Allergies Allergy/AdvReac Type Severity Reaction Status Date / Time No Known Allergies Allergy Verified 02/15/18 10:26 Physical Exam Vitals: Vital Signs Temp Pulse Resp BP Pulse Ox 02/17/18 15:10 96 02/17/18 12:53 96.8 F L 80 16 109/67 94 L 02/17/18 12:00 81 16 02/17/18 08:00 97.0 F L 94 14 120/72 100 02/17/18 03:46 86 18 02/17/18 03:43 99.5 F 86 18 159/85 94 L 02/17/18 00:00 99.2 F 89 17 150/80 94 L 02/16/18 20:00 99.5 F 91 17 132/79 95 02/16/18 15:48 100.5 F H 80 16 136/77 95 Intake and Output 02/17/18 02/17/18 02/17/18 06:59 14:59 22:59 Intake Total 200 1810 Output Total 200 400 Balance 0 1410 Intake: Intake, IV Titration 100 450 Amount Piperacillin-Tazobactam 3 50 .375 gm In Dextrose/Water 1 50ml.bag @ 12.5 mls/hr IVPB Q8HR [facility] Rx#: [id number] Sodium Chloride 0.9% 1, 300 000 ml @ 20 mls/hr IV . Q24H [facility] Rx#:[id number] metroNIDAZOLE-NS PMX 500 100 100 mg In Saline 1 100ml.bag @ 100 mls/hr IVPB Q8HR [facility] Rx#:[id number] Oral 100 1360 Output: Urine 200 400 Other: Voiding Method Urinal Urinal Weight 81.5 kg Physical Exam: Revealed an 87-year-old white male in no distress. Head: Atraumatic, normocephalic. Eyes: PERRLA, EOMI. No icterus. HEENT:[Neck is supple.] [No neck masses.] [No thyromegaly.] [No JVD.] Chest: [Diminished breath sounds at the left base, no crackles or rhonchi or wheezes.] Cardiac Exam: [Normal S1 and S2, no S3 gallop, 3/6 systolic murmur thought out the precordium best heard over the aortic area.] Abdomen: [Soft, nontender, no megaly, no rebound, no guarding, normal bowel sounds.] Extremities: [No clubbing, no edema, no cyanosis.] Neurological Exam: [No focal neurologic deficit.] Psychiatric: Normal mood affect and mental status examination. Results - Laboratory Findings CBC and BMP: 02/17/18 06:21 02/17/18 06:21 PT/INR, D-dimer PT 10.2 sec (9.0-12.0) 02/15/18 10:25 INR 1.0 (<1.2) 02/15/18 10:25 Abnormal lab findings: Abnormal Labs 02/15/18 02/15/18 02/15/18 10:25 10:25 10:25 WBC 30.8 H* RBC Hgb Hct 38.0 L Plt Count Neutrophils # Neutrophils # (Manual) 28.00 H Myelocytes # (Manual) 0.31 H Sodium BUN 39 H Creatinine 1.54 H Glucose 184 H POC Glucose (mg/dL) Plasma Lactic Acid [place] 4.0 H* Calcium Magnesium 1.3 L Troponin I Total Protein 6.0 L Albumin 3.4 L Urine Protein Urine Glucose (UA) Urine Mucus 02/15/18 02/15/18 02/15/18 10:25 11:05 17:11 WBC RBC Hgb Hct Plt Count Neutrophils # Neutrophils # (Manual) Myelocytes # (Manual) Sodium BUN Creatinine Glucose POC Glucose (mg/dL) 128 H Plasma Lactic Acid [place] Calcium Magnesium Troponin I 0.211 H* Total Protein Albumin Urine Protein 1+ H Urine Glucose (UA) 3+ H Urine Mucus Rare H 02/15/18 02/15/18 02/15/18 18:24 21:46 22:29 WBC RBC Hgb Hct Plt Count Neutrophils # Neutrophils # (Manual) Myelocytes # (Manual) Sodium BUN Creatinine Glucose POC Glucose (mg/dL) 159 H Plasma Lactic Acid [place] Calcium Magnesium Troponin I 0.123 H* 0.093 H* Total Protein Albumin Urine Protein Urine Glucose (UA) Urine Mucus 02/16/18 02/16/18 02/16/18 05:42 05:42 06:06 WBC 16.2 H RBC 3.75 L Hgb 11.2 L Hct 33.0 L Plt Count 134 L Neutrophils # 13.9 H Neutrophils # (Manual) Myelocytes # (Manual) Sodium 135 L BUN 29 H Creatinine Glucose 106 H POC Glucose (mg/dL) 106 H Plasma Lactic Acid [place] Calcium 8.3 L Magnesium Troponin I Total Protein Albumin Urine Protein Urine Glucose (UA) Urine Mucus 02/16/18 02/16/18 02/16/18 11:14 16:37 20:53 WBC RBC Hgb Hct Plt Count Neutrophils # Neutrophils # (Manual) Myelocytes # (Manual) Sodium BUN Creatinine Glucose POC Glucose (mg/dL) 124 H 215 H 134 H Plasma Lactic Acid [place] Calcium Magnesium Troponin I Total Protein Albumin Urine Protein Urine Glucose (UA) Urine Mucus 02/17/18 02/17/18 02/17/18 06:07 06:21 06:21 WBC 11.6 H RBC 3.53 L Hgb 10.6 L Hct 30.9 L Plt Count 120 L Neutrophils # 9.9 H Neutrophils # (Manual) Myelocytes # (Manual) Sodium 132 L BUN 21 H Creatinine Glucose 111 H POC Glucose (mg/dL) 117 H Plasma Lactic Acid [place] Calcium 8.0 L Magnesium Troponin I Total Protein Albumin Urine Protein Urine Glucose (UA) Urine Mucus 02/17/18 11:36 WBC RBC Hgb Hct Plt Count Neutrophils # Neutrophils # (Manual) Myelocytes # (Manual) Sodium BUN Creatinine Glucose POC Glucose (mg/dL) 145 H Plasma Lactic Acid [place] Calcium Magnesium Troponin I Total Protein Albumin Urine Protein Urine Glucose (UA) Urine Mucus - Diagnostic Findings Chest x-ray: image reviewed (Left hemidiaphragm elevation, minimal tiny left pleural effusion, and atelectasis at the left base.) Assessment and Plan Assessment: Impression: 1 small left pleural effusion and left basilar atelectasis with left hemidiaphragm elevation and 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 The effusion is way too small to consider thoracentesis, best to monitor and evaluate on outpatient basis with follow-up chest x-ray. 2 abdominal pain on presentation felt to be related to fecal impaction. 3 history of multiple comorbidities including previous history of COPD, presently asymptomatic and stable, recent history of influenza A infection, type 2 diabetes, history of TIA, positive blood cultures but felt to be contamination in nature. 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 This could be done on outpatient basis or we could do it before the patient is discharged home tomorrow. Recommendation: Discussed and reviewed the chest x-ray with the patient and his son, recommended no further workup, except repeat chest x-ray in 2 weeks in my office. If the effusion gets large enough to be drained, then we could consider thoracentesis. 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 Time with Patient: Greater than 30
[2018-02-17] MEDS ORDERED: metroNIDAZOLE 500 MG TAB PO SCH (16:00)
[2018-02-17 16:28] LABS: Glucose,Whole Blood 121 mg/dL (75-99)
[2018-02-17] MEDS: guaiFENesin 600 MG TABLET.ER PO SCH (20:34)
[2018-02-17 20:49] LABS: Glucose,Whole Blood 179 mg/dL (75-99)
--- NOTE | 2018-02-17 20:51 | CONS ---
CONSULTATION DATE OF DICTATION: 02/17/2018 REASON FOR CONSULTATION: /constipation. Abnormal CT of the abdomen. HISTORY OF PRESENT ILLNESS: The patient is an 87-year-old pleasant white male who came to the emergency room complaining of abdominal pain, generalized weakness, not feeling well on and off for the last few days' duration. He was hospitalized a week ago with flu and COPD exacerbation. Patient was discharged home; however, he continued to do poorly and he started experiencing lower abdominal cramping pain. The day before he came to the hospital he stated that he had a large bowel movement which was extremely painful, and at that time he became nauseated and lightheaded and had one episode of emesis. He hence came to the emergency room for further evaluation. In the ER the patient had a CT of the abdomen and pelvis done that showed dilation of the rectosigmoid junction up to 6.9 cm with retained fecal ball suggestive of fecal impaction. The patient said that normally he has about 1 or 2 bowel movements every other day. He denies any abdominal pain. No rectal bleeding. He never had a colonoscopy in the past. Yesterday he had 2 bowel movements. Today he had none. At present he denies any abdominal pain. He reports no nausea or vomiting. In fact, he has been eating a regular diet, tolerating well, and he denies any complaints today. PAST MEDICAL HISTORY: 1. GERD. 2. Diabetes mellitus. 3. Hypertension. ALLERGIES: NONE. MEDICATIONS AT HOME: Prilosec and metformin. PAST SURGICAL HISTORY: 1. Small bowel resection several years ago. 2. Orthopedic surgery. 3. Abdominal aortic aneurysm repair. 4. Skin lesions removed. 5. Bilateral cataract surgery. FAMILY HISTORY: Father had Hodgkin's lymphoma. Mother of old age. REVIEW OF SYSTEMS: GENITOURINARY: No dysuria or hematuria. MUSCULOSKELETAL: Back pain. NEUROLOGY: Unremarkable. He had some episodes of dizziness at the time of admission to the hospital, since resolved. PSYCHIATRIC: Unremarkable. ENT/VISION: Unremarkable. ENDOCRINE: Unremarkable. HEMATOLOGY: Unremarkable. CONSTITUTIONAL: No recent weight loss. No fever, chills, night sweats. PHYSICAL EXAMINATION: He appears comfortable. No apparent distress. Vital signs are stable. Blood pressure is 109/67, pulse rate 80, temperature 96.8. HEENT EXAMINATION: Unremarkable. Conjunctivae pink. Sclerae anicteric. Oral cavity no lesions. NECK: No JVD or lymph node enlargement. Chest was clear to auscultation. HEART: Regular rate and rhythm. ABDOMEN: Soft. Bowel sounds are positive. No organomegaly. EXTREMITIES: No pedal edema. NEUROLOGIC: Alert and oriented x3. No focal deficits. LABS DONE AT THE TIME OF ADMISSION TO THE HOSPITAL: WBC was 16.2, hemoglobin 11.2, platelets 134. AST, ALT, T-bilirubin and alkaline phosphatase are within normal limits. Troponin was 0.09. Blood cultures are positive for Gram-positive cocci. IMPRESSION: 1. Lower abdominal pain/chronic constipation/fecal impaction. Patient states that he was having regular bowel movements admitted 10 days ago for flu and COPD exacerbation and after discharge from the hospital he has been having some cramping abdominal pain and constipation. Patient states that he had a large bowel movement just prior to coming to the hospital, and since then his abdominal pain has significantly improved. CT of the abdomen did show dilated rectum with fecal impaction. Clinically the patient is asymptomatic and stable. 2. History of chronic obstructive pulmonary disease and recent episode of flu, which appears to be stable and resolved. RECOMMENDATIONS: The patient says that resolved. Since he is able to defecate normally, I would not any manual disimpaction at the present time. He can continue with an osmotic laxative and we will start him on MiraLAX 1 scoop twice daily. The patient he never had this in the past, but he refused at this time. Will him to use Fleet enema if needed if he ever feels constipated at home. For now, continue with osmotic laxatives as needed and we will follow him closely during his hospital stay. Thank you for this consultation. MMODL / IJN: [id number] /
[2018-02-18 03:56] VITALS: PULSE 95
[2018-02-18] MEDS: HEPARIN SODIUM,PORCINE 5,000 UNIT/ML 1 ML VIAL SQ SCH ×2 (04:12→10:30)
[2018-02-18 06:19] LABS: Glucose,Whole Blood 154 mg/dL (75-99)
[2018-02-18 06:32] LABS: Basophils % (A) 0 %; Eosinophils # (A) 0.1 k/uL (0-0.7); Eosinophils % (A) 1 %; HCT 30.8 % (39.0-53.0); HGB 10.6 gm/dL (13.0-17.5); Lymphocytes % (A) 11 %; MCH 30.2 pg (25.0-35.0); MCHC 34.4 g/dL (31.0-37.0); MCV 87.8 fL (80.0-100.0); Mean Platelet Volume 6.9; Monocytes # (A) 0.4 k/uL (0-1.0); Monocytes % (A) 5 %; Neutrophils % (A) 82 %; Platelet Count 129 k/uL (150-450); RBC 3.51 m/uL (4.30-5.90); RDW 13.6 % (11.5-15.5); WBC 8.6 k/uL (3.8-10.6)
[2018-02-18] MEDS: PANTOPRAZOLE 40 MG TABLET PO SCH (06:32)
[2018-02-18] MEDS: INSULIN ASPART 100 UNIT/ML 1 ML 10 ML VIAL SQ SCH ×2 (06:32→11:52)
[2018-02-18 06:43] LABS: Calcium 8.1 mg/dL (8.4-10.2); Potassium 3.7 mmol/L (3.5-5.1)
[2018-02-18] MEDS: PIPERACILLIN-TAZOBACTAM 3.375 GM in DEXTROSE/WATER 1 50ML.BAG IVPB SCH (08:46)
[2018-02-18] MEDS: guaiFENesin 600 MG TABLET.ER PO SCH (08:47)
[2018-02-18] MEDS: DOCUSATE 100 MG CAP PO SCH (08:47)
[2018-02-18] MEDS: metFORMIN 500 MG TAB PO SCH (08:47)
[2018-02-18] MEDS ORDERED: ASPIRIN 81 MG PO SCH (09:00)
--- NOTE | 2018-02-18 10:00 | FL ---
EXAMINATION TYPE: FL sniff test without CXR DATE OF EXAM: 02/18/2018 COMPARISON: 10/23/2015 and 02/17/2018 HISTORY: Left hemidiaphragm elevation, chronic TECHNIQUE: Fluoroscopy. 59 seconds of fluoroscopy time was utilized with 1 image saved. FINDINGS: Real-time fluoroscopy was performed during sniff test for the patient was asked to sniff re peatedly as well as demonstrate repeated deep inspiration and expiration. The diaphragms move symmetr ically. Left hemidiaphragm is noted although this appears chronic dating back to 2014 and there is as sociated atelectasis indicative of volume loss of the left lung. No evidence of diaphragmatic paralys is. IMPRESSION: No fluoroscopic evidence of diaphragmatic paralysis. Chronic left hemidiaphragm elevation dating back to 2014 may be partially related to left basilar chronic atelectasis and left lung volum e loss.
[2018-02-18 10:36] VITALS: TEMP 96.8
[2018-02-18 11:52] LABS: Glucose,Whole Blood 107 mg/dL (75-99)
--- NOTE | 2018-02-18 11:52 | PN ---
PROGRESS NOTE DATE OF SERVICE: 02/18/2018 The patient is an 87-year-old pleasant white male who was admitted to the hospital with abdominal pain, chronic constipation, continued weakness for the last 2 days duration. Today, he denies any complaints. He denies any abdominal pain. No nausea, vomiting. On a clear liquid diet, tolerating well. He had one bowel movement last night and received some Dulcolax this morning and he has an urge to have a bowel movement. Overall, he feels better and no specific complaints. PHYSICAL EXAMINATION: On physical examination, he appears comfortable, in no apparent distress. Vital signs are stable. Blood pressure is 138/74, pulse rate 95, temperature 98.9. HEENT examination unremarkable. Conjunctivae pink. Sclerae anicteric. Oral cavity no lesion. NECK: No JVD or lymph node enlargement. Chest was clear to auscultation. HEART: Regular rate and rhythm. ABDOMEN: Soft. Bowel sounds are positive. No organomegaly. EXTREMITIES: No pedal edema. SKIN: No rashes. NEURO: He is alert and oriented x3. No focal deficits. LABS: Labs from today WBC 8.6, hemoglobin 10.6, platelets are 129. Basic metabolic panel is within normal limits. IMPRESSION: 1. Abdominal pain, chronic constipation, which is gradually improving. 2. Gram-positive bacteremia possibly Staphylococcus aureus for which he is on antibiotics. Dr. Simmons is following the patient closely. RECOMMENDATIONS: 1. Continue with as well as as needed. 2. Advance diet as tolerated. 3. Patient refuses to have any endoscopic intervention at the present time. At this time, we will sign off. Please call us if needed. Thank you for this consultation. MMODL / IJN: [id number] /
--- NOTE | 2018-02-18 12:17 | P.PN ---
Subjective Progress Note Date: 02/18/18 Principal diagnosis: Abdominal pain This is an 87-year-old white male with history of multiple medical problems including COPD, previous CVA, history of pulmonary embolism, GERD, hypertension , history of aortic valve disease, and previous aortic aneurysm repair/ abdominal aortic [place] [address] Aguiar. Patient was admitted to the hospital with multiple complaints including intermittent episodes of constipation and abdominal pain, and shortly after he had a bowel movement developed significant and profound weakness, vague aches and pains, and flulike symptoms. He also had some intermittent episodes of productive cough with whitish phlegm. But no fever, no chills, no hemoptysis, no chest pain. No palpitations. Patient was admitted on 02/15/2018, and since then he was seen by many consultants including vascular surgery, cardiology, and infectious disease. One blood culture was positive for coagulase-negative staph, felt to be a contamination. Patient was treated with antibiotics in the form of Zosyn. And felt that he could be switched to Augmentin. This was given by the infectious disease specialist on the case. Follow-up chest x-ray done was limited, and rotated, it showed mild cardiomegaly, and small left pleural effusion. Basilar atelectasis was noted, but looking back at the patient's old x-rays, he always had a left elevated hemidiaphragm consistent with left hemidiaphragm paralysis. This could be confirmed by a sniff test, and after I reviewed the chest x-ray, I felt that mild of the fluid in the left pleural space is so minimal and the patient will likely not benefit from thoracentesis. As a matter of fact that risk of thoracentesis outweighs the benefits at this point. Hence I felt it would be best to leave it alone and follow up on outpatient basis. The patient is seen again today 02/18/2018 in follow-up on the selective care unit. He is currently resting quite comfortably in bed. He is awake and alert in no acute distress. He denies any worsening shortness of breath, cough or congestion. He is maintaining good O2 saturations in the mid 90s on 2 L/m per nasal cannula. He remains afebrile. Hemodynamically stable. Follow-up blood cultures revealed no growth to date. White count 8.6. Hemoglobin 10.6. Creatinine 1.10. Chronically elevated left hemidiaphragm since October 2015 suspect associated atelectasis and volume loss. Stiffness did not reveal any evidence of diaphragmatic paralysis. Objective - Vital Signs Vital signs: Vital Signs Temp 96.8 F L 02/18/18 08:00 Pulse 95 02/18/18 08:00 Resp 14 02/18/18 08:00 BP 132/73 02/18/18 08:00 Pulse Ox 93 L 02/18/18 08:00 Intake & Output 02/17/18 02/18/18 02/18/18 18:59 06:59 18:59 Intake Total 2050 310 1170 Output Total 400 525 400 Balance 1650 -215 770 Weight 83 kg Intake: Intake, IV Titration 450 210 150 Amount Piperacillin-Tazobactam 3 50 50 50 .375 gm In Dextrose/Water 1 50ml.bag @ 12.5 mls/hr IVPB Q8HR WANDA Rx#: [id number] Sodium Chloride 0.9% 1, 300 160 100 000 ml @ 20 mls/hr IV . Q24H WANDA Rx#:[id number] metroNIDAZOLE-NS PMX 500 100 mg In Saline 1 100ml.bag @ 100 mls/hr IVPB Q8HR WANDA Rx#:[id number] Oral [id number] Output: Urine 400 525 400 Other: Voiding Method Urinal Urinal Urinal - Exam GENERAL EXAM: Alert, active, comfortable in no apparent distress. HEAD: Normocephalic. EYES: Normal reaction of pupils, equal size. NOSE: Clear with pink turbinates. THROAT: No erythema or exudates. NECK: No masses, no JVD. CHEST: No chest wall deformity. LUNGS: Equal air entry with no crackles, wheeze, rhonchi or dullness. CVS: S1 and S2 normal with positive audible murmur, regular rhythm. ABDOMEN: No hepatosplenomegaly, normal bowel sounds, no guarding or rigidity. SPINE: No scoliosis or deformity SKIN: No rashes CENTRAL NERVOUS SYSTEM: No focal deficits, tone is normal in all 4 extremities. EXTREMITIES: There is no peripheral edema. No clubbing, no cyanosis. Peripheral pulses are intact. - Labs CBC & Chem 7: 02/18/18 05:56 02/18/18 05:56 Labs: Abnormal Lab Results - Last 24 Hours (Table) 02/17/18 02/17/1802/18/18 Range/Units 16:26 20:48 05:56 RBC 3.51 L (4.30-5.90) m/uL Hgb 10.6 L (13.0-17.5) gm/dL Hct 30.8 L (39.0-53.0) % Plt Count 129 L (150-450) k/uL Sodium (137-145) mmol/L Glucose (74-99) mg/dL POC Glucose (mg/dL) 121 H 179 H (75-99) mg/dL Calcium (8.4-10.2) mg/dL 02/18/18 02/18/18 02/18/18 Range/Units 05:56 06:18 11:50 RBC (4.30-5.90) m/uL Hgb (13.0-17.5) gm/dL Hct (39.0-53.0) % Plt Count (150-450) k/uL Sodium 133 L (137-145) mmol/L Glucose 125 H (74-99) mg/dL POC Glucose (mg/dL) 154 H 107 H (75-99) mg/dL Calcium 8.1 L (8.4-10.2) mg/dL Microbiology - Last 24 Hours (Table) 02/16/18 08:08 Blood Culture - Preliminary Blood No Growth after 48 hours 02/16/18 08:02 Blood Culture - Preliminary Blood No Growth after 48 hours 02/15/18 10:25 Blood Culture Gram Stain - Preliminary Blood Blood Culture - Preliminary Coagulase Negative Staph Assessment and Plan Assessment: Impression: 1 small left pleural effusion and left basilar atelectasis with left hemidiaphragm elevation and 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 The effusion is way too small to consider thoracentesis, best to monitor and evaluate on outpatient basis with follow-up chest x-ray. 2 abdominal pain on presentation felt to be related to fecal impaction. 3 history of multiple comorbidities including previous history of COPD, presently asymptomatic and stable, recent history of influenza A infection, type 2 diabetes, history of TIA, positive blood cultures but felt to be contamination in nature. Chronically elevated left hemidiaphragm since October 2015 suspect associated atelectasis and volume loss. Stiffness did not reveal any evidence of diaphragmatic paralysis. Thank you: The patient was seen and evaluated by Dr. Brent. He is stable from the pulmonary standpoint. No significant pleural effusions. He could be transferred to an ECF once a bed is available. Discharge planning is in place. I, the cosigning physician, performed a history & physical examination of the patient. Lungs sounds with crackles left posterior base. Maintaining good O2 saturations in the 90s on 2 L/m per nasal cannula. I discussed the assessment and plan of care with my nurse practitioner, Trisha Contreras. I attest to the above note as dictated by her.
--- NOTE | 2018-02-18 12:44 | P.PN ---
Subjective Progress Note Date: 02/18/18 This is a pleasant 87-year-old gentleman with past medical history significant for diabetes, peripheral vascular disease with prior abdominal aortic aneurysm surgery, who presented to the hospital mainly with complaints of abdominal discomfort. He underwent a CT of the abdomen which revealed dilated rectosigmoid junction. He did undergo abdominal surgery about a year ago according to his son for lysis of adhesions. Hemodynamically the patient has been stable with normal heart rate normal blood pressure. Echo performed in 2015 revealed moderate aortic stenosis with a normal left ventricular systolic function. The cardiac enzymes were checked and came back to be slightly abnormal, not consistent with acute coronary syndrome. EKG showed sinus rhythm without any ischemic ST or T-wave changes. Echocardiogram with Doppler study was performed which revealed an ejection fraction of 50-55%. Moderate to severe aortic stenosis present with a peak/mean gradient across the aortic valve of 54.68/32.54 mg of mercury. At pressure today 110/60 heart rate in the 80s, 94% on 2 L of oxygen. White blood cell count 11.6, hemoglobin 10.6, platelet count 120. Sodium 132, potassium 3.9, BUN 21, creatinine 1.0. 02/18/2018 Patient seen and examined this morning, resting comfortably in bed, in no acute distress. Denies any chest discomfort, no shortness of breath, no cough. Remaining afebrile and hemodynamically stable. Follow-up blood cultures did not reveal any growth to date. Blood pressure 132/72 with a heart rate in the 90s, 93% on 2 L of oxygen. White blood cell count 8.6, hemoglobin 10.6, platelet count 129. Sodium 133, potassium 3.7, BUN 17, creatinine 1.1. Objective - Vital Signs Vital signs: Vital Signs Temp 96.8 F L 02/18/18 08:00 Pulse 95 02/18/18 08:00 Resp 14 02/18/18 08:00 BP 132/73 02/18/18 08:00 Pulse Ox 93 L 02/18/18 08:00 Intake & Output 02/17/18 02/18/18 02/18/18 18:59 06:59 18:59 Intake Total 2050 310 1170 Output Total 400 525 400 Balance 1650 -215 770 Weight 83 kg Intake: Intake, IV Titration 450 210 150 Amount Piperacillin-Tazobactam 3 50 50 50 .375 gm In Dextrose/Water 1 50ml.bag @ 12.5 mls/hr IVPB Q8HR WANDA Rx#: [id number] Sodium Chloride 0.9% 1, 300 160 100 000 ml @ 20 mls/hr IV . Q24H WANDA Rx#:[id number] metroNIDAZOLE-NS PMX 500 100 mg In Saline 1 100ml.bag @ 100 mls/hr IVPB Q8HR WANDA Rx#:[id number] Oral [id number] Output: Urine 400 525 400 Other: Voiding Method Urinal Urinal Urinal - Exam PHYSICAL EXAMINATION: HEENT: Head is atraumatic, normocephalic. Pupils equal, round. Neck is supple. There is no elevated jugular venous pressure. HEART EXAMINATION: Heart S1 S2 1 systolic ejection murmur is heard. CHEST EXAMINATION: Lungs reveal diminished air entry to bilateral bases. ABDOMEN: Soft, nontender. Bowel sounds are heard. No organomegaly noted. EXTREMITIES: 2+ peripheral pulses with no evidence of peripheral edema and no calf tenderness noted. NEUROLOGIC patient is awake, alert and oriented -3. . - Labs CBC & Chem 7: 02/18/18 05:56 02/18/18 05:56 Labs: Abnormal Lab Results - Last 24 Hours (Table) 02/17/18 02/17/18 02/18/18 Range/Units 16:26 20:48 05:56 RBC 3.51 L (4.30-5.90) m/uL Hgb 10.6 L (13.0-17.5) gm/dL Hct 30.8 L (39.0-53.0) % Plt Count 129 L (150-450) k/uL Sodium (137-145) mmol/L Glucose (74-99) mg/dL POC Glucose (mg/dL) 121 H 179 H (75-99) mg/dL Calcium (8.4-10.2) mg/dL 02/18/18 02/18/18 02/18/18 Range/Units 05:56 06:18 11:50 RBC (4.30-5.90) m/uL Hgb (13.0-17.5) gm/dL Hct (39.0-53.0) % Plt Count (150-450) k/uL Sodium 133 L (137-145) mmol/L Glucose 125 H (74-99) mg/dL POC Glucose (mg/dL) 154 H 107 H (75-99) mg/dL Calcium 8.1 L (8.4-10.2) mg/dL Microbiology - Last 24 Hours (Table) 02/16/18 08:08 Blood Culture - Preliminary Blood No Growth after 48 hours 02/16/18 08:02 Blood Culture - Preliminary Blood No Growth after 48 hours 02/15/18 10:25 Blood Culture Gram Stain - Preliminary Blood Blood Culture - Preliminary Coagulase Negative Staph Assessment and Plan Plan: Assessment and plan #1 abdominal pain, likely secondary to fecal impaction. #2 abdominal aortic aneurysm #3 abnormal troponins, not consistent with acute coronary syndrome, likely secondary to supply and demand mismatch. Echocardiogram with Doppler study revealed a normal left ventricular systolic function with moderate to severe aortic stenosis. #4 history of TIA # 5 diabetes #6 daily EtOH use Plan From cardiology's perspective, we will recommend to keep the patient on a baby aspirin daily which was initiated yesterday. We will follow this patient with you now on an as-needed basis only, please don't hesitate to call with any questions. DNP note has been reviewed, I agree with a documented findings and plan of care. Patient was seen and examined.
[2018-02-18 13:01] VITALS: BP 134/80; RESP 16
--- NOTE | 2018-02-18 13:09 | P.DS ---
Providers Date of admission: 02/15/18 12:44 Expected date of discharge: 02/18/18 Attending physician: Shar Cedeño Consults: 02/15/18 18:39 Consult Physician Routine Consulting Provider: [facility] Consult Reason/Comments: elevated troponin Do you want consulting provider notified?: Yes 02/16/18 07:00 Consult Physician Routine Consulting Provider: Angel Aguiar Consult Reason/Comments: aortic aneurysm Do you want consulting provider notified?: Yes, Notify in am 02/16/18 07:19 Consult Physician Routine Consulting Provider: Christie Simmons Consult Reason/Comments: positive blood cultures, leukocytosis Do you want consulting provider notified?: Yes 02/16/18 09:29 Consult Physician Routine Consulting Provider: Gifty Ordonez Consult Reason/Comments: constipation Do you want consulting provider notified?: Yes 02/17/18 13:31 Consult Physician Routine Consulting Provider: Darvin Kennedy Consult Reason/Comments: cough, pleural effusions Do you want consulting provider notified?: Yes Primary care physician: [facility] Course: 87-year-old male who presented to the emergency room with a chief complaint of abdominal pain, painful bowel movements, and generalized weakness. The patient was recently hospitalized from 02/05/2018 until 02/08/2018 with influenza and COPD exacerbation. The patient was discharged home in stable condition. He reports he was doing well post discharge and spent Easter with his family. He reports abdominal pain that started during the night and also states he had a large painful bowel movement. Admits to some nausea at home with a few small episodes of emesis. He states he feels very weak and fatigued since that time. The patient has a history of COPD, TIA in 1996, diabetes mellitus, hypertension , gastroesophageal reflux disease, osteoarthritis, pulmonary embolus, bowel obstruction requiring surgical intervention, AAA repair in 1995, skin cancer, and depression. The patient is a former cigarette smoker and quit smoking in 1995 after smoking 1-1/2 packs per day since age of 18. The patient also reports daily alcohol use and states he drinks 2-4 beers per day. Acute abdominal series: Nonspecific abdomen with a few scattered prominent small bowel loops. Correlate for enteritis or ileus. Left basilar atelectasis and pleural thickening or tiny effusion. CT of the abdomen and pelvis: Dilation of the rectosigmoid junction up to 6.9 cm with rectal fecal ball suggesting rectal impaction. No proximal obstruction. Enlarging infrarenal abdominal aortic aneurysm now measuring 4.6 3.8 cm. Previous and measuring 3.83.1 cm. Circumferential gastric rugal fold thickening that may relate to incomplete distention although gastritis should also be considered. 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 Cholelithiasis without evidence of acute acute cholecystitis. Nodular opacities of the lung bases appear chronic in comparison to examine 2015. Laboratory data: WBC: 30.8. Hemoglobin 13.0. Platelet count 183. Sodium 138. Potassium 4.0. BUN 39. Creatinine 1.50. GFR 41. Glucose 184. Magnesium 1.3. Lactic acid 4.0. Troponins: 0.211, 0.123, 0.093 Urinalysis reveals: 1+ proteinuria, 3+ glucose. Negative ketones, blood, bilirubin, or leukocyte esterase. The patient was admitted to the hospital under the care of Dr. Cedeño. GI was consulted to evaluate the patient during hospitalization. The patient refused endoscopic procedures. The patient reported bowel movements during hospitalization. No further episodes of constipation. He denies any further abdominal pain or discomfort. The patient complained of coughing while in the hospital. A chest xray was completed revealing mild cardiomegaly with small to moderate effusions on the lateral view. Adjacent bibasilar atelectasis and/or consolidation. Pulmonary was consulted. No need for thoracentesis per pulmonary. The patient is to follow up in 2 weeks for repeat cxr. 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 Sniff test was completed which was negative for paralysis. Patients blood cultures were positive for gram-positive cocci. Infectious disease was consulted. The patient was placed on Zosyn. Final report of the blood cultures was coagulase-negative staph representing a contamination. Repeat blood cultures 2 were drawn which are negative at the 24 hour vandana. infectious disease recommends a short course of Augmentin at time of discharge. Abdominal xray completed 02/16/2018 reveals nonspecific bowel gas pattern and no evidence of dilated loops of bowel. Echocardiogram was completed on 02/16/2018 revealing ejection fraction of 50-55% , moderate to severe aortic stenosis, mild mitral regurgitation, and mild tricuspid regurgitation. The patient was seen and evaluated by cardiology during hospitalization for abnormal troponins. He was started on a baby aspirin daily per cardiology. No further intervention from their standpoint. Vascular surgery was consulted during hospitalization as patient's abdominal aortic aneurysm was found to have increased in size to 4.63.8 cm. Previously measuring 3.83.1 cm. no surgical intervention was recommended. Continue with medical management. The patient states he would not want to proceed with any type of surgical intervention anyways. Physical therapy and occupational therapy were consulted during hospitalization to evaluate patient. Subacute rehab was recommended. The patient was agreeable. Dr. Cedeño spoke with the patient's son who was also agreeable to subacute rehab. The patient was deemed stable for discharge to [facility] for rehab. DISCHARGE DIAGNOSIS: Abdominal pain, present on admission, likely secondary to rectal impaction, resolved Lactic acidosis and leukocytosis, meets SIRS criteria, sepsis ruled out Gram positive bacteremia, contaminated specimen as cultures are positive for coagulase negative staph Abdominal aortic aneurysm measuring 4.63.8 cm. Previously measuring 3.83.1 cm. Abnormal troponins: 0.211, 0.123, 0.093, acute coronary syndrome ruled out History of TIA in 1995 Diabetes mellitus, type II, hemoglobin A1c 5.8% Recent hospitalization for influenza A and COPD exacerbation Daily alcohol use History of nicotine dependence, in remission, patient quit smoking in 1995 Hypomagnesemia, may be secondary to daily alcohol use, improved with supplementation Nurse practitioner note has been reviewed by physician. Signing provider agrees with the documented findings, assessment, and plan of care. Plan - Discharge Summary Discharge Rx Participant: Yes New Discharge Prescriptions: New Acetaminophen Tab [Tylenol] 650 mg PO Q4HR PRN tab PRN Reason: Fever And/ Or Pain Aspirin 81 mg PO DAILY chew Bisacodyl [Dulcolax] 10 mg RECTAL Q24H PRN supp PRN Reason: Constipation Docusate [Colace] 100 mg PO BID cap guaiFENesin [Mucinex] 600 mg PO Q12HR tablet.er Amoxicillin/Potassium Clav [Augmentin 500-125 Tablet] 1 tab PO Q12HR #10 tab Continue metFORMIN HCL 500 mg PO DAILY Omeprazole 20 mg PO DAILY Discharge Medication List Omeprazole 20 mg PO DAILY 10/16/15 [History] metFORMIN HCL 500 mg PO DAILY 10/16/15 [History] Acetaminophen Tab [Tylenol] 650 mg PO Q4HR PRN tab 04/05/18 [Rx] Amoxicillin/Potassium Clav [Augmentin 500-125 Tablet] 1 tab PO Q12HR #10 tab 04/02 [Rx] Aspirin 81 mg PO DAILY chew 02/18/18 [Rx] Bisacodyl [Dulcolax] 10 mg RECTAL Q24H PRN supp 02/18/18 [Rx] Docusate [Colace] 100 mg PO BID cap 02/18/18 [Rx] guaiFENesin [Mucinex] 600 mg PO Q12HR tablet.er 02/18/18 [Rx] Follow up Appointment(s)/Referral(s): Darvin Kennedy MD [STAFF PHYSICIAN] - 3 Weeks Jaylon Arzate MD [STAFF PHYSICIAN] - 2 Weeks Meir Hopkins Jr, DO [Primary Care Provider] - 1-2 days (after DC from ECF) Gifty Ordonez MD [STAFF PHYSICIAN] - As Needed [facility], [NON-STAFF] - Activity/Diet/Wound Care/Special Instructions: Heart healthy/diabetic diet Activity as tolerated Discharge Disposition: TRANSFER TO SNF/ECF
--- NOTE | 2018-02-18 15:52 | PN ---
PROGRESS NOTE DATE OF SERVICE: 02/18/2018. REASON FOR FOLLOWUP: 1. Leukocytosis, likely abdominal source. 2. Positive blood cultures likely skin contamination. INTERVAL HISTORY: The patient is afebrile. He is breathing comfortably. Very minimal cough, not bringing up sputum. No chest pain. No abdominal pain. Did have a bowel movement. No nausea, no vomiting. EXAMINATION: Blood pressure 134/80 with a pulse of 80, temperature 96.8. He is 94% on room air. General description is an elderly male lying in bed in no distress. RESPIRATORY SYSTEM: Unlabored breathing. Clear to auscultation anteriorly. HEART: S1, S2. Regular rate and rhythm. ABDOMEN: Soft, no tenderness. EXTREMITIES: No edema feet. LABS: Hemoglobin is 10.2, white count of 8.6, BUN of 17, creatinine 1.10. Blood culture repeat has been negative. DIAGNOSTIC IMPRESSION AND PLAN: 1. Patient with positive blood culture with coag-negative staph skin contamination. No clinical disease to go along with it. Blood culture repeat has been negative. No need for vancomycin. 2. Patient with leukocytosis with significant abdominal symptoms likely pointing towards the abdomen source. The patient did have overall improvement on the Zosyn. Will give a short course of Augmentin to finish course of therapy. Continue supportive care. MMODL / IJN: [id number] /
== END 2018-02-18 15:38 | DRG 389 ==
LOC: EC 09:19 → 6SEL 12:44
PROVIDERS: ADMIT Family Medicine; ATTEND Family Medicine
DX: K56.41 Fecal impaction (principal); J90 Pleural effusion, not elsewhere classified; E87.2 Acidosis; R78.81 Bacteremia; E11.51 Type 2 diabetes mellitus with diabetic peripheral angiopathy without gangrene; I08.3 Combined rheumatic disorders of mitral, aortic and tricuspid valves; E83.42 Hypomagnesemia; J98.11 Atelectasis; J44.9 Chronic obstructive pulmonary disease, unspecified; I11.9 Hypertensive heart disease without heart failure; R32 Unspecified urinary incontinence; I71.4 Abdominal aortic aneurysm, without rupture; K21.9 Gastro-esophageal reflux disease without esophagitis; K80.20 Calculus of gallbladder without cholecystitis without obstruction; F32.9 Major depressive disorder, single episode, unspecified; F17.211 Nicotine dependence, cigarettes, in remission; M19.90 Unspecified osteoarthritis, unspecified site; R74.8 Abnormal levels of other serum enzymes; Z72.89 Other problems related to lifestyle; J98.6 Disorders of diaphragm; Z79.899 Other long term (current) drug therapy; Z79.84 Long term (current) use of oral hypoglycemic drugs; Z86.73 Personal history of transient ischemic attack (TIA), and cerebral infarction without residual deficits; Z86.711 Personal history of pulmonary embolism; Z85.828 Personal history of other malignant neoplasm of skin; Z90.49 Acquired absence of other specified parts of digestive tract; Z96.60 Presence of unspecified orthopedic joint implant; Z98.42 Cataract extraction status, left eye; Z98.41 Cataract extraction status, right eye; Z96.1 Presence of intraocular lens; Z91.81 History of falling; Z80.7 Family history of other malignant neoplasms of lymphoid, hematopoietic and related tissues
CPT/HCPCS: 36415; 71046; 74018; 74022; 74177; 76000; 80048; 80053; 81001; 83036; 83605; 83735; 84484; 85025; 85610; 85730; 87040; 87077; 87186; 93005; 93306; 94760; 96365; 96375; 99285

== ENCOUNTER 2018-03-13 15:54 | Emergency (ER) | payer MEDICARE, OTHER ==
[2018-03-13] MEDS ORDERED: RX INFO: IV CONTRAST WAS GIVEN 1 EACH MISC MISCELLANE PRN (16:14)
--- NOTE | 2018-03-13 16:14 | ED ---
Chest Pain HPI - General Stated Complaint: Chest Pain Time Seen by Provider: 03/13/18 16:02 Source: patient, EMS, RN notes reviewed Mode of arrival: EMS - History of Present Illness Initial Comments: This is a 87-year-old male was brought in from a local fpc with complaints of left-sided chest pain is been going on off throughout the day. He states that sharp in nature currently is pain-free he states it does get worse with his exercises. He points to his left lateral chest wall over the costochondral margin. He denies any cough fevers chills nausea vomiting sweats. 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 Concern is for recurrent aortic pathology. MD Complaint: chest pain, other - Related Data Home Medications Medication Instructions Recorded Confirmed Omeprazole 20 mg PO DAILY 10/16/15 02/15/18 metFORMIN HCL 500 mg PO DAILY 10/16/15 02/15/18 Previous Rx's Medication Instructions Recorded Acetaminophen Tab [Tylenol] 650 mg PO Q4HR PRN tab 02/18/18 Amoxicillin/Potassium Clav 1 tab PO Q12HR #10 tab 02/18/18 [Augmentin 500-125 Tablet] Aspirin 81 mg PO DAILY chew 02/18/18 Bisacodyl [Dulcolax] 10 mg RECTAL Q24H PRN supp 02/18/18 Docusate [Colace] 100 mg PO BID cap 02/18/18 Polyethylene Glycol 3350 [Miralax] 17 gm PO DAILY #30 packet 02/18/18 guaiFENesin [Mucinex] 600 mg PO Q12HR tablet.er 02/18/18 Allergies Allergy/AdvReac Type Severity Reaction Status Date / Time No Known Allergies Allergy Verified 03/13/18 16:12 Review of Systems ROS Statement: Those systems with pertinent positive or pertinent negative responses have been documented in the HPI. ROS Other: All systems not noted in ROS Statement are negative. EKG Findings - EKG Results: EKG: interpreted by NAJMA, sinus rhythm (Sinus rhythm with PACs rate was 90. Interval 156 QRS 80 QT since QTC of 370/[address]-T wave) Past Medical History Past Medical History: Cancer, COPD, CVA/TIA, Diabetes Mellitus, GERD/Reflux, Hypertension, Osteoarthritis (OA), Pulmonary Embolus (PE) Additional Past Medical History / Comment(s): TIAs (1996), falls, squamous cell skin ca, murmur, "leaky haert valve"constipation History of Any Multi-Drug Resistant Organisms: None Reported Past Surgical History: Bowel Resection, Joint Replacement, Orthopedic Surgery Additional Past Surgical History / Comment(s): AAA repair (1995), various procedures to remove skin lesions/cancerous skin lesions , bowel sx d/t obstruction,cataracts. Past Anesthesia/Blood Transfusion Reactions: No Reported Reaction Additional Past Anesthesia/Blood Transfusion Reaction / Comment(s): slow to come out Smoking Status: Former smoker - Past Family History Mother Additional Family Medical History / Comment(s): "old age" at 92 years old Father Family Medical History: Cancer Additional Family Medical History / Comment(s): Hodgkins Lymphoma- at age 53 General Exam - General Exam Comments Initial Comments: This is a well-developed well-nourished awake alert oriented 3 male General appearance: alert, in no apparent distress Head exam: Present: atraumatic, normocephalic, normal inspection Eye exam: Present: normal appearance, PERRL, EOMI. Absent: scleral icterus, conjunctival injection, periorbital swelling ENT exam: Present: normal exam, mucous membranes moist Neck exam: Present: normal inspection. Absent: tenderness, meningismus, lymphadenopathy Respiratory exam: Present: normal lung sounds bilaterally. Absent: respiratory distress, wheezes, rales, rhonchi, stridor, chest wall tenderness Cardiovascular Exam: Present: regular rate, normal rhythm, normal heart sounds, other (Peripheral pulses are equal bilaterally). Absent: systolic murmur, diastolic murmur, rubs, gallop, clicks GI/Abdominal exam: Present: soft, normal bowel sounds. Absent: distended, tenderness, guarding, rebound, rigid Extremities exam: Present: normal inspection, full ROM, normal capillary refill. Absent: tenderness, pedal edema, joint swelling, calf tenderness Back exam: Present: normal inspection Neurological exam: Present: alert, oriented X3, CN II-XII intact Psychiatric exam: Present: normal affect, normal mood Skin exam: Present: warm, dry, intact, normal color. Absent: rash Course Vital Signs 03/13/18 03/13/18 03/13/18 16:05 18:02 18:59 Temperature 97.8 F Pulse Rate 90 94 97 Respiratory 18 18 18 Rate Blood Pressure 132/62 131/75 118/76 O2 Sat by Pulse 99 100 99 Oximetry Chest Pain MDM - MDM Patient has been pain-free since arrival and did discuss findings with him and his family the CAT scan shows very minimal change from previous ones. I did discuss findings with him patient will be discharged back to his residence. He is a follow-up with his doctor this week and return when necessary Disposition Clinical Impression: Atypical chest pain Disposition: HOME SELF-CARE Condition: Good Instructions: Chest Pain (ED) Is patient prescribed a controlled substance at d/c from ED?: No Referrals: Shar Cedeño MD [Primary Care Provider] - 1-2 days
[2018-03-13 16:21] LABS: Basophils # (A) 0.1 k/uL (0-0.2); Basophils % (A) 1 %; Eosinophils # (A) 0.2 k/uL (0-0.7); Eosinophils % (A) 1 %; Hyperchromasia Slight; Lymphocytes # (A) 2.8 k/uL (1.0-4.8); Lymphocytes % (A) 21 %; MCH 28.9 pg (25.0-35.0); MCHC 34.5 g/dL (31.0-37.0); MCV 83.7 fL (80.0-100.0); Mean Platelet Volume 6.5; Monocytes # (A) 0.7 k/uL (0-1.0); Monocytes % (A) 5 %; Neutrophils # (A) 9.2 k/uL (1.3-7.7); Neutrophils % (A) 70 %; Platelet Count 289 k/uL (150-450); Poikilocytosis Slight; RBC 3.83 m/uL (4.30-5.90); RDW 14.5 % (11.5-15.5); WBC 13.1 k/uL (3.8-10.6)
[2018-03-13 16:24] VITALS: RESP 18
[2018-03-13 16:27] LABS: Partial Thromboplastin Time 26.2 sec (22.0-30.0); Prothrombin Time 9.9 sec (9.0-12.0)
--- NOTE | 2018-03-13 16:27 | XR ---
EXAMINATION TYPE: XR chest 2V DATE OF EXAM: 03/13/2018 COMPARISON: 02/17/2018 HISTORY: 87-year-old male with chest pain TECHNIQUE: AP and lateral views FINDINGS: Heart is upper limits of normal in size. Elongation/ectasia of the thoracic aorta. Continued elevatio n of the left hemidiaphragm. Visualized lungs are otherwise clear. No significant pleural effusion. IMPRESSION: Chronic changes with tortuous and ectatic thoracic aorta and elevated left hemidiaphragm with left ba silar scarring. No acute process seen.
[2018-03-13 16:28] LABS: Albumin 3.7 g/dL (3.5-5.0); Calcium 9.3 mg/dL (8.4-10.2); Magnesium 1.6 mg/dL (1.6-2.3); Potassium 4.4 mmol/L (3.5-5.1); Total Bilirubin 0.5 mg/dL (0.2-1.3); Total Protein 6.7 g/dL (6.3-8.2)
[2018-03-13 16:30] LABS: Creatine Kinase 21 U/L (55-170)
[2018-03-13 16:43] LABS: Creatine Kinase MB 0.5 ng/mL (0.0-2.4); Troponin I <0.012 ng/mL (0.000-0.034)
--- NOTE | 2018-03-13 18:04 | CT ---
EXAMINATION TYPE: CT angio thoracic/abd aorta DATE OF EXAM: 03/13/2018 COMPARISON: Chest 04/29/2016 and 10/18/2015, 02/15/2018 abdomen pelvis HISTORY: 87-year-old male Left sided chest pain today. TECHNIQUE: Contiguous axial scanning of the chest, abdomen, and pelvis performed without and with IV Contrast, patient injected with 80 mL of Isovue 370. Coronal/sagittal MIP reconstructions performed. CT DLP: 1058.5 mGycm Automated exposure control for dose reduction was used. FINDINGS: Chest: Heart is normal size without pericardial effusion. Aortic valvular calcifications are present as well as severe atherosclerotic calcifications throughout the coronary arteries. Redemonstrated is aneurys m of the proximal circumflex artery at 1.3 cm, not significantly changed. Initial noncontrast series shows no evidence for acute or intramural hematoma. No evidence for aortic dissection. Ascending aorta normal caliber at 3.2 cm. Conventional arch vessel branching anatomy. Moderate to severe irregularity ulcerating plaque is seen throughout the distal arch throughout the d escending thoracic aorta. The upper descending thoracic aorta is aneurysmal at 4.6 cm versus 4.0 cm, previously. The saccular bulge projecting posteriorly from the upper descending thoracic aorta has enlarged measu ring 3.5 cm wide versus 2.3 cm, previously. Sagittal dimensions are 3.3 x 1.7 cm versus 2.7 x 1.4 cm, previously. There is no contrast extension here suggesting prominent thrombus. Lower descending thoracic aorta is aneurysmal at 3.9 cm versus 3.4 cm, previously. No thoracic lymphadenopathy. Evaluation of the lungs shows mild to moderate centrilobular emphysema. There is some nodular groundg lass in the anterior right upper lobe at the mid lung level measuring 1.3 cm, new from 04/29/2016. The re is a focal area of consolidation at the posterior right costophrenic angle measuring 3.6 cm versus 3.3 cm on 02/15/2018. Prominent pleural parenchymal scarring at the left base with tethering of the le ft hemidiaphragm is redemonstrated. No pleural effusion. ABDOMEN: Arterial phase imaging of the liver, gallbladder, adrenal glands, right kidney, spleen, and atrophic pancreas show no gross abnormality. Stable 2.0 cm cyst posterior left kidney. Marked severe irregular, ulcerated atherosclerotic plaque redemonstrated throughout the upper to mid abdominal aorta. Moderate narrowing at the origin of the celiac access redemonstrated. Aneurysm of th e infrarenal abdominal aorta at 4.3 cm wide versus 4.2 cm on 04/29/2016 and 3.7 cm on 10/18/2015. Moder ate to severe atherosclerotic narrowing at the origin of the bilateral renal arteries. No dilated small bowel, free fluid, or free air. No mesenteric or retroperitoneal lymphadenopathy. Si gmoid diverticulosis without pericolonic inflammatory change. Scattered mild to moderate stool. Pelvis: Bladder urine distended. No abnormal fluid collection the pelvis or pelvic lymphadenopathy seen. Redemonstrated mild aneurysm of 1.9 cm of the right common iliac artery, 2.1 cm of the right internal iliac artery though with prominent mural-based plaque and thrombus. Not significantly changed from 2 015. Moderate to severe atherosclerotic calcifications are present. Bones: Right hip dynamic screw fixation. Mild degenerative changes at the hips. Degenerative changes right S I joint. Degenerative changes lower lumbar spine. There is osteopenia with endplate spondylosis mid t o lower thoracic spine. IMPRESSION: VASCULATURE: 1. 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 2. MODERATE TO SEVERE ATHEROSCLEROTIC CALCIFICATIONS WITH AREAS OF PROMINENT IRREGULAR ULCERATED PLAQ UE THROUGHOUT ESPECIALLY WITHIN THE DESCENDING THORACIC AORTA AND UPPER TO MID ABDOMINAL AORTA. 3. NO EVIDENCE FOR AORTIC DISSECTION, ACUTE INTRAMURAL HEMATOMA, OR PENETRATING ATHEROSCLEROTIC ULCER . 4. 4.6 CM ANEURYSM OF THE UPPER DESCENDING THORACIC AORTA VERSUS 4.0 CM ON 04/29/2016. 5. A SACCULAR ANEURYSM PROJECTING POSTERIORLY FROM HERE ALSO SHOWS ENLARGEMENT NOW MEASURING 3.5 X 2. 3 X 1.7 CM VERSUS 2.3 X 2.7 X 1.4 CM IN 2016. CONSIDER FOLLOW-UP WITH VASCULAR SURGERY. 6. INCREASING ANEURYSM OF THE LOWER DESCENDING THORACIC AORTA AT 3.9 CM VERSUS 3.4 CM IN 2016. 7. FUSIFORM AAA JUST BELOW THE RENAL ARTERIES MEASURES 4.3 CM VERSUS 4.2 CM ON 04/29/2016 AND 3.7 CM ON 10/18/2015. 8. STABLE ANEURYSMS OF THE RIGHT COMMON AND INTERNAL ILIAC ARTERIES MEASURING UP TO 2.1 CM. BODY: 9. COPD WITH PULMONARY ARTERIAL HYPERTENSION. 10. A 1.3 CM GROUNDGLASS NODULE AT THE RIGHT MIDLUNG IS NEW FROM 04/29/2016. ALSO, A 3.6 CM NODULAR A ARLIN OF CONSOLIDATION AT THE POSTERIOR RIGHT BASE HAS INCREASED FROM 3.3 CM ON 02/15/2018 AND IS NEW FRO M 04/29/2016. THESE COULD REPRESENT INFECTIOUS/INFLAMMATORY FOCI. CORRELATE FOR ANY SYMPTOMS OF PNEUMO KAREN. THREE-MONTH FOLLOW-UP EXAM RECOMMENDED TO EXCLUDE NEOPLASM. 11. 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
[2018-03-13 19:59] VITALS: BP 134/80; PULSE 95; TEMP 98.1
== END 2018-03-13 21:05 | disposition home or self-care (01) ==
LOC: EC 15:54
DX: R07.89 Other chest pain (principal); K21.9 Gastro-esophageal reflux disease without esophagitis; E11.9 Type 2 diabetes mellitus without complications; Z87.891 Personal history of nicotine dependence; Z79.84 Long term (current) use of oral hypoglycemic drugs; Z79.899 Other long term (current) drug therapy
CPT/HCPCS: 99285; 36415; 93005; 83880; 80053; 82150; 82550; 82553; 83690; 83735; 84484; 85025; 85610; 85730; 71046; 75635; 71275; Q9967

== ENCOUNTER 2018-03-24 06:33 | Day surgery (SDC) | payer MEDICARE, OTHER ==
[2018-03-23 10:54] VITALS: BMI 23.7
[2018-03-24] MEDS ORDERED: SODIUM CHLORIDE 0.9% 1,000 ML in EMPTY BAG 1 BAG IV ONE (07:06)
[2018-03-24] MEDS ORDERED: ALPRAZolam 0.25 MG TAB PO PRN (07:06)
[2018-03-24] MEDS ORDERED: ASPIRIN 325 MG TAB PO ONE (07:06)
[2018-03-24 07:53] VITALS: RESP 18; TEMP 98
[2018-03-24 07:54] LABS: Glucose,Whole Blood 145 mg/dL (75-99)
[2018-03-24 07:55] LABS: Basophils % (A) 0 %; Eosinophils # (A) 0.3 k/uL (0-0.7); Eosinophils % (A) 3 %; HCT 33.8 % (39.0-53.0); HGB 11.6 gm/dL (13.0-17.5); Lymphocytes # (A) 2.6 k/uL (1.0-4.8); Lymphocytes % (A) 25 %; MCH 28.3 pg (25.0-35.0); MCHC 34.3 g/dL (31.0-37.0); MCV 82.4 fL (80.0-100.0); Mean Platelet Volume 6.7; Monocytes # (A) 0.7 k/uL (0-1.0); Monocytes % (A) 6 %; Neutrophils # (A) 6.7 k/uL (1.3-7.7); Neutrophils % (A) 64 %; Platelet Count 271 k/uL (150-450); Poikilocytosis Slight; RDW 15.1 % (11.5-15.5); WBC 10.4 k/uL (3.8-10.6)
[2018-03-24] MEDS: MIDAZOLAM 2 MG/2 ML VIAL IV ONE ×2 (08:50→09:04)
[2018-03-24] MEDS ORDERED: LIDOCAINE 2% INJ 20 MG/ML SQ ONE (08:53)
[2018-03-24] MEDS ORDERED: RX INFO: IV CONTRAST WAS GIVEN 1 EACH MISC MISCELLANE PRN (09:37)
[2018-03-24] MEDS ORDERED: IOPAMIDOL-370 125ML BTL INJ ONE (09:39)
[2018-03-24] MEDS ORDERED: SODIUM CHLORIDE 0.9% 1,000 ML IV SCH (09:45)
--- NOTE | 2018-03-24 10:40 | LTR ---
DATE OF SERVICE: 03/24/2018 RE: Benjamin Hobbs Dear Meir; Mr. Benjamin Hobbs underwent today heart catheterization for recurrent episodes of chest discomfort concerning for angina. It did reveal moderate to severe 2-vessel coronary artery disease involving the RCA and LAD. I recommended maximize medical treatment at this point of time and follow up with him. If he continues to have chest discomfort in spite of that, I will pursue with a PCI of the RCA and LAD. I want to thank you for allowing me to participate in his care and please do not hesitate to call if you have any question or concern. Sincerely, MD ANA St / JIM: [id number] /
--- NOTE | 2018-03-24 10:40 | CC ---
CARDIAC CATHETERIZATION REPORT DATE OF SERVICE: 03/24/2018 PERFORMING PHYSICIAN: Jaylon Arzate MD, arc welder. PROCEDURE PERFORMED: Selective right and left coronary angiogram. INDICATION: This is a pleasant 87-year-old gentleman who continues to have chest discomfort concerning for angina in spite of medical treatment. Because of that, he was brought today to undergo a heart catheterization. I attempted conservative medical approach on him for about 4 weeks then I was called from [facility] that he continues to have chest discomfort. APPROACH: Right common femoral artery. COMPLICATION: None. LEVEL OF SEDATION: Moderate with sedation length of 40 minutes. PROCEDURE DESCRIPTION: After obtaining an informed consent, the patient was brought to the cardiac lab animal technologist. The right common femoral artery was cannulated using micropuncture technique, the micropuncture wire passed easily, then I put off initially an 11 cm 6-Chinese sheath in the right common femoral artery. Then I had to change the sheath into 25 cm 6-Chinese sheath because of extreme tortuosity in the right iliac segment. After that, I did selective right and left coronary angiogram using JR4 and JL4 catheters and both of them were 125 cm catheters because also of the extreme tortuosity in the aorta. The procedure was completed without any complication. SELECTIVE CORONARY ANGIOGRAM: 1. The right coronary artery is a large caliber vessel and it is a dominant vessel. It is a calcified vessel as well. The proximal RCA has mild disease only. The mid RCA is aneurysmal. The mid to distal RCA has a lesion appeared to be in the range of 60% to 70%. The RCA distally appeared to have mild to moderate diffuse disease. 2. The left main is has mild disease only and is heavily calcified left main. It bifurcates into left circumflex and left anterior descending artery. 3. The left circumflex is a large caliber vessel and it is an aneurysmal vessel. The left circumflex has a large aneurysm seen with sluggish flow in the circ itself. The aneurysm involving the OM branch of the left circumflex. 4. The LAD, the proximal LAD is heavily calcified with lesion in the range of 60% to 70%. The mid LAD by the bifurcation of a diagonal has mild disease only. The diagonal has mild to moderate diffuse disease. The LAD distally appeared to be angiographically normal. CONCLUSION: 1. Extremely tortuous and calcified peripheral arterial system. 2. Heavily calcified right and left coronary system. 3. Intermediate to severe disease involving the mid RCA. 4. Intermediate disease to severe disease involving the proximal LAD. 5. Large aneurysmal dilatation of the left circumflex. Postprocedure management is maximize medical treatment at this point of time and follow up with the patient. If he continues to have chest discomfort in spite of that, I will consider doing PCI of the RCA and LAD. ANA / JIM: [id number] /
[2018-03-24] MEDS ORDERED: HYDROCHLOROTHIAZIDE 25 MG TAB PO SCH (10:45)
[2018-03-24] MEDS ORDERED: METOPROLOL TARTRATE 12.5 MG TAB PO SCH (10:45)
[2018-03-24] MEDS ORDERED: ISOSORBIDE MONONITRATE ER 30 MG TAB.ER.24H PO STA (14:48)
[2018-03-24] MEDS ORDERED: RANOLAZINE 500 MG TAB.ER.12H PO SCH (15:00)
[2018-03-24 16:22] VITALS: BP 136/70; PULSE 80
== END 2018-03-24 16:40 ==
LOC: CATHCVL 06:33
PROVIDERS: ATTEND Internal Medicine Interventional Cardiology
DX: I25.110 Atherosclerotic heart disease of native coronary artery with unstable angina pectoris (principal); I25.84 Coronary atherosclerosis due to calcified coronary lesion; I25.41 Coronary artery aneurysm; I10 Essential (primary) hypertension; I77.1 Stricture of artery; Z87.891 Personal history of nicotine dependence; I35.8 Other nonrheumatic aortic valve disorders; E11.9 Type 2 diabetes mellitus without complications; Z79.84 Long term (current) use of oral hypoglycemic drugs; Z82.49 Family history of ischemic heart disease and other diseases of the circulatory system; Z79.82 Long term (current) use of aspirin; Z79.51 Long term (current) use of inhaled steroids; Z79.899 Other long term (current) drug therapy
CPT/HCPCS: 93454; 85025; C1769 ×4; C1894 ×2; J2001; J2250; Q9967

== ENCOUNTER 2018-04-28 06:20 | Day surgery (SDC) | payer MEDICARE, OTHER ==
[~2018-04-28 06:20] MED LIST changes: +ALPRAZolam 0.25 MG TAB PO PRN; +ALPRAZolam 0.5 MG TAB PO PRN; +ASPIRIN 325 MG TAB PO STA; +ATORVASTATIN 80 MG TAB PO STA; -HEPARIN SODIUM,PORCINE 5,000 UNIT/ML 1 ML VIAL SQ ONE; -HYDROmorphone 0.5 MG/0.5 ML SYRINGE IVP PRN; -LACTATED RINGERS 1,000 ML IV SCH; +NITROGLYCERIN SL TABS 0.4 MG TAB SUBLINGUAL PRN; -ONDANSETRON 4 MG/2 ML VIAL IVP ONE; -Pre Op ABX Message 1 EACH MISC MISCELLANE ONE; +SODIUM CHLORIDE 0.9% 1,000 ML in EMPTY BAG 1 BAG IV ONE
[2018-04-28 07:18] LABS: Basophils % (A) 0 %; Eosinophils # (A) 0.4 k/uL (0-0.7); Eosinophils % (A) 6 %; HCT 33.8 % (39.0-53.0); HGB 11.8 gm/dL (13.0-17.5); Lymphocytes # (A) 1.8 k/uL (1.0-4.8); Lymphocytes % (A) 26 %; MCH 28.7 pg (25.0-35.0); MCHC 34.8 g/dL (31.0-37.0); MCV 82.4 fL (80.0-100.0); Mean Platelet Volume 6.8; Monocytes # (A) 0.6 k/uL (0-1.0); Monocytes % (A) 8 %; Neutrophils % (A) 58 %; RBC 4.11 m/uL (4.30-5.90); RDW 15.5 % (11.5-15.5); WBC 6.9 k/uL (3.8-10.6)
[2018-04-28 07:19] LABS: Glucose,Whole Blood 149 mg/dL (75-99)
[2018-04-28 07:24] LABS: Platelet Count 197 k/uL (150-450)
[2018-04-28 07:48] LABS: Calcium 9.3 mg/dL (8.4-10.2); Potassium 4.4 mmol/L (3.5-5.1)
[2018-04-28] MEDS: MIDAZOLAM 2 MG/2 ML VIAL IV ONE ×2 (07:55→08:24)
[2018-04-28] MEDS ORDERED: LIDOCAINE 2% SYG (PF) 100 MG/5 ML MISCELLANE ONE (07:59)
[2018-04-28] MEDS ORDERED: BIVALIRUDIN BOLUS 250 MG/50 ML IV ONE (08:14)
[2018-04-28] MEDS ORDERED: BIVALIRUDIN 250 MG in SODIUM CHLORIDE 0.9% 40 ML IV ONE (08:15)
[2018-04-28] MEDS ORDERED: CLOPIDOGREL 75 MG TAB PO ONE (08:43)
[2018-04-28] MEDS ORDERED: ACETAMINOPHEN TAB 325 MG TAB PO PRN (08:53)
[2018-04-28] MEDS ORDERED: RANOLAZINE 500 MG TAB.ER.12H PO PRN (08:53)
[2018-04-28] MEDS ORDERED: BISACODYL 10 MG SUPP RECTAL PRN (08:53)
[2018-04-28] MEDS ORDERED: IOPAMIDOL-370 125ML BTL INJ ONE (08:57)
[2018-04-28] MEDS ORDERED: MAG HYDROX/AL HYDROX/SIMETH 30 ML CUP PO PRN (08:57)
[2018-04-28] MEDS ORDERED: ATROPINE SULFATE 0.1 MG/ML 10ML SYRINGE IV PRN (08:57)
[2018-04-28] MEDS ORDERED: RX INFO: IV CONTRAST WAS GIVEN 1 EACH MISC MISCELLANE PRN (08:57)
[2018-04-28] MEDS ORDERED: ZOLPIDEM 5 MG TAB PO PRN (08:57)
[2018-04-28] MEDS ORDERED: NITROGLYCERIN SL TABS 0.4 MG TAB SUBLINGUAL PRN (08:57)
[2018-04-28] MEDS ORDERED: NA PHOS,M-B/NA PHOS,DI-BA 133 ML ENEMA RECTAL SCH (09:00)
[2018-04-28] MEDS ORDERED: SODIUM CHLORIDE 0.9% 1,000 ML IV SCH (09:00)
[2018-04-28] MEDS ORDERED: ASPIRIN 325 MG TAB PO SCH (09:00)
[2018-04-28] MEDS ORDERED: MAGNESIUM HYDROXIDE PO SCH (09:00)
[2018-04-28] MEDS ORDERED: ERGOCALCIFEROL 50,000 UNIT CAP PO SCH (09:00)
--- NOTE | 2018-04-28 09:35 | LTR ---
April 28, 2018 Re: Benjamin Hobbs Dear Dr. Hopkins: Mr. Benjamin Hobbs underwent successful stenting of the LAD with good angiographic results and without any complication. Thank you for allowing me to participate in his care and please do not hesitate to call if you have any question or concern. Sincerely, Jaylon Arzate MD MMBILLL / LAURYNN: [id number] /
[2018-04-28 12:43] VITALS: RESP 18
[2018-04-28 13:43] VITALS: BMI 20.8
[2018-04-28] MEDS: DOCUSATE 100 MG CAP PO SCH ×2 (15:07→21:42)
[2018-04-28] MEDS: ASPIRIN 81 MG PO SCH (15:07)
[2018-04-28] MEDS: FERROUS SULFATE 325 MG TAB PO SCH ×2 (15:08→21:41)
[2018-04-28] MEDS: guaiFENesin 600 MG TABLET.ER PO SCH ×2 (15:08→21:42)
[2018-04-28] MEDS: METOPROLOL TARTRATE 25 MG TAB PO SCH ×2 (15:09→21:42)
[2018-04-28] MEDS: HYDROCHLOROTHIAZIDE 25 MG TAB PO SCH (15:09)
[2018-04-28] MEDS: PANTOPRAZOLE 40 MG TABLET PO SCH (15:10)
[2018-04-28] MEDS: POLYETHYLENE GLYCOL 3350 17 GM POWD.PACK PO SCH (15:10)
[2018-04-28] MEDS: AMMONIUM LACTATE 12% CREAM 140 GM TUBE TOPICAL SCH ×2 (15:18→21:41)
[2018-04-28] MEDS: MENTHOL-ZINC OXIDE OINT 113 GM TUBE TOPICAL SCH ×2 (15:18→21:41)
[2018-04-28 19:00] LABS: Hemoglobin A1C 5.7 % (4.0-6.0)
[2018-04-28] MEDS ORDERED: ATORVASTATIN 80 MG TAB PO SCH (21:00)
[2018-04-28 21:51] LABS: Glucose,Whole Blood 162 mg/dL (75-99)
[2018-04-29 05:51] LABS: Glucose,Whole Blood 114 mg/dL (75-99)
[2018-04-29] MEDS: PANTOPRAZOLE 40 MG TABLET PO SCH (06:16)
[2018-04-29 07:44] LABS: Basophils % (A) 1 %; Eosinophils # (A) 0.6 k/uL (0-0.7); Eosinophils % (A) 8 %; HCT 31.7 % (39.0-53.0); HGB 10.7 gm/dL (13.0-17.5); Lymphocytes # (A) 2.3 k/uL (1.0-4.8); Lymphocytes % (A) 30 %; MCH 28.5 pg (25.0-35.0); MCHC 33.6 g/dL (31.0-37.0); Mean Platelet Volume 6.6; Monocytes # (A) 0.4 k/uL (0-1.0); Monocytes % (A) 6 %; Neutrophils # (A) 4.2 k/uL (1.3-7.7); Neutrophils % (A) 54 %; Platelet Count 185 k/uL (150-450); RBC 3.73 m/uL (4.30-5.90); RDW 15.9 % (11.5-15.5); WBC 7.8 k/uL (3.8-10.6)
[2018-04-29 07:55] LABS: Calcium 8.9 mg/dL (8.4-10.2); Potassium 4.1 mmol/L (3.5-5.1)
[2018-04-29] MEDS: POLYETHYLENE GLYCOL 3350 17 GM POWD.PACK PO SCH (08:26)
[2018-04-29] MEDS: guaiFENesin 600 MG TABLET.ER PO SCH (08:28)
[2018-04-29] MEDS: DOCUSATE 100 MG CAP PO SCH (08:29)
[2018-04-29] MEDS: FERROUS SULFATE 325 MG TAB PO SCH (08:29)
[2018-04-29] MEDS: AMMONIUM LACTATE 12% CREAM 140 GM TUBE TOPICAL SCH (08:30)
[2018-04-29] MEDS: ASPIRIN 81 MG PO SCH (08:30)
[2018-04-29] MEDS: MENTHOL-ZINC OXIDE OINT 113 GM TUBE TOPICAL SCH (08:30)
[2018-04-29] MEDS: HYDROCHLOROTHIAZIDE 25 MG TAB PO SCH (08:30)
[2018-04-29] MEDS: METOPROLOL TARTRATE 25 MG TAB PO SCH (08:31)
[2018-04-29 08:49] VITALS: PULSE 85
[2018-04-29] MEDS ORDERED: CLOPIDOGREL 75 MG TAB PO SCH (09:00)
--- NOTE | 2018-04-29 09:45 | DS ---
DISCHARGE SUMMARY BRIEF HISTORY: This is a pleasant 87-year-old gentleman who was experiencing chest discomfort concerning for angina. He underwent a heart catheterization about 6 weeks ago and that revealed severe disease involving the LAD in the proximal portion, which was heavily calcified LAD, and with aneurysmal left circumflex coronary system and intermediate to severe disease involving the RCA. The patient is known to have moderate aortic stenosis. He was treated medically and continues to have chest discomfort in spite of that. He was seen and evaluated by a surgeon, who turned the patient down as a high risk for the surgery. Yesterday I did perform an atherectomy and stenting of the LAD, with good angiographic results and without any complication. On follow up with the patient today, he is doing well and he is asymptomatic from cardiac standpoint of view. He is chest pain free and he is feeling 100% better. The patient is going to be discharged home on dual anti-platelet therapy and I will follow up with the patient in the office as an outpatient. ANA / JIM: [id number] /
[2018-04-29] MEDS ORDERED: ERGOCALCIFEROL 50,000 UNIT CAP PO SCH (12:00)
[2018-04-29 12:27] VITALS: BP 112/70; TEMP 97
--- NOTE | 2018-05-12 11:45 | PTCA ---
PERCUTANEOUSTRANS CORORONARY ANGIOGRAPHY DATE OF SERVICE: 04/28/2018 PERFORMING PHYSICIAN: Jaylon Arzate MD, Pump House Operator. PROCEDURE PERFORMED: 1. An atherectomy of the proximal left anterior descending artery. 2. Successful stenting of the proximal left anterior descending artery using 3.0 x 12 mm Xience MONSERRAT with good angiographic results. 3. Selective right common femoral artery angiogram. INDICATION: This is a pleasant 87-year-old gentleman who was experiencing chest discomfort concerning for angina. He does have moderate to severe aortic stenosis as well as diabetes, hypertension, and dyslipidemia. He underwent a heart catheterization about 6 weeks ago and that revealed severe disease involving the proximal LAD, aneurysmal left circumflex coronary system, and intermediate to severe disease involving a tortuous dominant right coronary artery which was also calcified. Maximize medical treatment was tried for a few weeks and the patient continues to have chest discomfort. He was seen and evaluated by cardiothoracic surgeon for the evaluation of aortic valve replacement with coronary artery bypass grafting and he was turned down by surgery because he was high risk. Because of that and because of the continuous chest discomfort, he was brought to undergo percutaneous coronary intervention of the LAD. APPROACH: Right common femoral artery. COMPLICATION: None. LEVEL OF SEDATION: Moderate with sedation length of 48 minutes. PROCEDURE DESCRIPTION: After obtaining an informed consent, the patient was brought to the Cardiac Link Trainer Maintenance Worker. The right common femoral artery was cannulated using micropuncture technique and a micropuncture wire passed easily, then I placed a 6-[place] sheath in the right common femoral artery. After that, I did exchange my 11 cm sheath into 23 cm sheath because of the severe aortoiliac tortuosity. At that point, I did start anticoagulation using Angiomax. I did engage the left main using JL4 guiding catheter. I did wire the LAD using a long Whisper wire. The Whisper wire was positioned in the distal LAD. After that, I did exchange my Whisper wire into Viper Wire preparing for orbital atherectomy using the CSI device and I did exchange that wire using a Super Cross catheter. After that, I did one short run of orbital atherectomy on low speed using the CSI device. After that, I did wire the LAD using the Whisper wire again. Subsequently, I did do balloon angioplasty using 3.0 x 12 mm balloon before I deployed 3.0 x 12 mm Xience MONSERRAT where the stent was positioned under fluoroscopy guidance and deployed under 14 atmospheres for 20 seconds with the following angiogram showing good angiographic results without perforation and without dissection with GARRY-3 flow. The procedure was completed without any complication. I did after that exchange my 23 cm sheath into 11 cm sheath using an 0.35 wire. I did selective right common femoral artery angiogram, which did reveal heavily calcified with mild to moderate diffuse disease involving the right common femoral artery. I did not do any percutaneous closure device because of the diseased femoral artery as well as because of the calcified femoral arteries. The procedure was completed without any complication. POSTPROCEDURE MANAGEMENT: 1. Dual anti-platelet therapy. 2. Risk factors modifications. 3. Follow up with the patient. MMODL / IJN: [id number] /
== END 2018-04-29 12:29 ==
LOC: CATHCVL 06:20 → 6SEL 08:46 → CATHCVL 04-29 12:29
PROVIDERS: ATTEND Internal Medicine Interventional Cardiology
DX: I25.10 Atherosclerotic heart disease of native coronary artery without angina pectoris (principal); I25.41 Coronary artery aneurysm; I35.0 Nonrheumatic aortic (valve) stenosis; I70.201 Unspecified atherosclerosis of native arteries of extremities, right leg; E11.9 Type 2 diabetes mellitus without complications; I10 Essential (primary) hypertension; E78.5 Hyperlipidemia, unspecified; Z79.51 Long term (current) use of inhaled steroids; Z79.82 Long term (current) use of aspirin; Z79.84 Long term (current) use of oral hypoglycemic drugs; Z79.899 Other long term (current) drug therapy; Z87.891 Personal history of nicotine dependence; Z82.49 Family history of ischemic heart disease and other diseases of the circulatory system
CPT/HCPCS: 80048 ×2; 85025 ×2; 83036; C9602; C1769 ×7; C1887 ×2; C1725; C1894 ×2; C1874; C1714; J2250; J2001; J0583; Q9967

== ENCOUNTER 2018-06-25 10:29 | Inpatient (IN) | payer MEDICARE, OTHER ==
[2018-06-25] MEDS ORDERED: SODIUM CHLORIDE 0.9% 1,000 ML IV ONE (11:20)
[2018-06-25] MEDS: SODIUM CHLORIDE 0.9% 1,000 ML IV SCH ×2 (11:41→21:16)
--- NOTE | 2018-06-25 11:58 | ED ---
Wound/Laceration HPI - General Chief Complaint: Wound/Laceration Stated Complaint: Growth on Toe Time Seen by Provider: 06/25/18 10:42 Source: patient, RN notes reviewed, old records reviewed Mode of arrival: wheelchair Limitations: no limitations - History of Present Illness Initial Comments: Patient states she IS raised from today with right second toe infection. Patient reports that he was discharged from [facility] 3 weeks ago. He states that it visiting physician at home today evaluated his wound and encouraged him to come for further evaluation. At this time Patient reports he has no pain with range of motion. He has very little feeling in his feet. Patient states he has also a sore over his left great toe. Eyes any fever or chills. He does have a history of coronary artery disease. He did have a recent cardiac cath. Patient states that he's had no chest pain or shortness of shortness of breath. - Related Data Home Medications Medication Instructions Recorded Confirmed Omeprazole 20 mg PO DAILY 10/16/15 04/28/18 Ergocalciferol (Vitamin D2) 50,000 unit PO Q7D 03/23/18 04/23/18 [Vitamin D2] Ferrous Sulfate [Iron (65 MG 325 mg PO BID 03/23/18 04/28/18 Elemental)] Hydrochlorothiazide [Hydrodiuril] 25 mg PO QAM 03/23/18 04/28/18 Metoprolol Tartrate [Lopressor] 25 mg PO BID 03/23/18 04/28/18 Ammonium Lactate Cream [Lac-Hydrin 1 applic TOPICAL BID 04/23/18 04/28/18 12% Cream] Bisacodyl [Dulcolax] 1 supp RECTAL DAILY PRN 04/23/18 04/28/18 Ergocalciferol (Vitamin D2) 50,000 unit PO TH 04/23/18 04/28/18 [Vitamin D2] Magnesium Hydroxide [Milk of 30 ml PO DIRECTED 04/23/18 04/28/18 Magnesia] Menthol/Zinc Oxide [Calmoseptine 1 applic TOPICAL BID 04/23/18 04/28/18 Ointment] Na Phos,M-B/Na Phos,Di-Ba [Fleet 1 dose RECTAL DIRECTED 04/23/18 04/23/18 Adult] Ranolazine [Ranexa] 500 mg PO QAM PRN 04/23/18 04/28/18 Previous Rx's Medication Instructions Recorded Acetaminophen Tab [Tylenol] 650 mg PO Q4HR PRN tab 02/18/18 Aspirin 81 mg PO DAILY chew 02/18/18 Docusate [Colace] 100 mg PO BID cap 02/18/18 Polyethylene Glycol 3350 [Miralax] 17 gm PO DAILY #30 packet 02/18/18 guaiFENesin [Mucinex] 600 mg PO Q12HR tablet.er 02/18/18 Atorvastatin [Lipitor] 80 mg PO DAILY #90 tab 04/29/18 Clopidogrel [Plavix] 75 mg PO DAILY #90 tab 04/29/18 Allergies Allergy/AdvReac Type Severity Reaction Status Date / Time No Known Allergies Allergy Verified 06/25/18 10:37 Review of Systems ROS Statement: Those systems with pertinent positive or pertinent negative responses have been documented in the HPI. ROS Other: All systems not noted in ROS Statement are negative. Past Medical History Past Medical History: Cancer, COPD, CVA/TIA, Diabetes Mellitus, GERD/Reflux, Hypertension, Osteoarthritis (OA), Pulmonary Embolus (PE) Additional Past Medical History / Comment(s): TIAs (1996), falls, squamous cell skin ca, murmur, "leaky haert valve"constipation History of Any Multi-Drug Resistant Organisms: MRSA Date of last positivie culture/infection: 02/15/18 MDRO Source:: BLOOD Past Surgical History: Bowel Resection, Joint Replacement, Orthopedic Surgery Additional Past Surgical History / Comment(s): AAA repair (1995), various procedures to remove skin lesions/cancerous skin lesions , bowel sx d/t obstruction,cataracts. Past Anesthesia/Blood Transfusion Reactions: No Reported Reaction Additional Past Anesthesia/Blood Transfusion Reaction / Comment(s): slow to come out Past Psychological History: Depression Smoking Status: Former smoker Past Alcohol Use History: Daily Past Drug Use History: None Reported - Past Family History Mother Additional Family Medical History / Comment(s): "old age" at 92 years old Father Family Medical History: Cancer Additional Family Medical History / Comment(s): Hodgkins Lymphoma- at age 53 General Exam - General Exam Comments Initial Comments: 6 rolled male. Alert and oriented. No significant distress. Limitations: no limitations General appearance: alert, in no apparent distress Head exam: Present: atraumatic, normocephalic, normal inspection Eye exam: Present: normal appearance, PERRL, EOMI. Absent: scleral icterus, conjunctival injection, periorbital swelling ENT exam: Present: normal exam, mucous membranes moist Neck exam: Present: normal inspection. Absent: tenderness, meningismus, lymphadenopathy Respiratory exam: Present: normal lung sounds bilaterally. Absent: respiratory distress, wheezes, rales, rhonchi, stridor Cardiovascular Exam: Present: regular rate, normal rhythm, normal heart sounds. Absent: systolic murmur, diastolic murmur, rubs, gallop, clicks GI/Abdominal exam: Present: soft, normal bowel sounds. Absent: distended, tenderness, guarding, rebound, rigid Extremities exam: Present: normal inspection, full ROM, normal capillary refill. Absent: tenderness, pedal edema, joint swelling, calf tenderness Left Neurovascular tendon exam: Present: no vascular compromise (Patient does have a weak but palpable dorsalis pedis pulse.) Gait: observed and normal 1 - 3cm black gangrenous area over DIP 2 - 1cm area of erytheam Back exam: Present: normal inspection Neurological exam: Present: alert, oriented X3, CN II-XII intact Psychiatric exam: Present: normal affect, normal mood Skin exam: Present: warm, dry, intact, normal color. Absent: rash Course Vital Signs 06/25/18 10:34 Temperature 98.3 F Pulse Rate 90 Respiratory 18 Rate Blood Pressure 104/69 O2 Sat by Pulse 99 Oximetry Medical Decision Making - Medical Decision Making 88-year-old male with history of coronary artery disease, hypertension, diabetes peripheral vascular disease left today with a wound over his right second toe for the past 3 weeks. Visiting physician stated that he needed to come in for further evaluation today. Patient states that he's had some minor drainage from the right second toe. He also has a wound over his left great toe. This time x-ray showed no evidence of sepsis osteomyelitis. EKG was normal. White normal white blood cell count. However the patient's comorbidities would like treatment the Patient started on IV antibiotics consult to vascular surgery. Dr. Jesus discussed the case with Dr. Montiel. I also did obtain a culture over the second left toe. - Lab Data Result diagrams: 06/25/18 11:50 06/25/18 11:50 Lab Results 06/25/18 06/25/18 Range/Units 11:50 11:50 WBC 10.4 (3.8-10.6) k/uL RBC 3.36 L (4.30-5.90) m/uL Hgb 9.4 L (13.0-17.5) gm/dL Hct 27.8 L (39.0-53.0) % MCV 82.9 (80.0-100.0) fL MCH 27.9 (25.0-35.0) pg MCHC 33.7 (31.0-37.0) g/dL RDW 16.5 H (11.5-15.5) % Plt Count 276 (150-450) k/uL Neutrophils % 59 % Lymphocytes % 28 % Monocytes % 5 % Eosinophils % 5 % Basophils % 0 % Neutrophils # 6.1 (1.3-7.7) k/uL Lymphocytes # 2.9 (1.0-4.8) k/uL Monocytes # 0.5 (0-1.0) k/uL Eosinophils # 0.5 (0-0.7) k/uL Basophils # 0.1 (0-0.2) k/uL Poikilocytosis Slight Anisocytosis Slight Sodium 137 (137-145) mmol/L Potassium 4.3 (3.5-5.1) mmol/L Chloride 102 (98-107) mmol/L Carbon Dioxide 26 (22-30) mmol/L Anion Gap 9 mmol/L BUN 27 H (9-20) mg/dL Creatinine 1.24 (0.66-1.25) mg/dL Est GFR (CKD-EPI)AfAm 61 (>60 ml/min/1.73 sqM) Est GFR (CKD-EPI)NonAf 53 (>60 ml/min/1.73 sqM) Glucose 80 (74-99) mg/dL Calcium 8.8 (8.4-10.2) mg/dL Total Bilirubin 0.3 (0.2-1.3) mg/dL AST 26 (17-59) U/L ALT 27 (21-72) U/L Alkaline Phosphatase 70 (38-126) U/L Total Protein 5.8 L (6.3-8.2) g/dL Albumin 3.2 L (3.5-5.0) g/dL 06/25/18 13:57 EKG performed at 1227 shows normal sinus rhythm normal EKG. Ventricular rate of 80 bpm. Was 176. QRS ration 84. QT QTc is 394/454 ms. - Radiology Data Radiology results: report reviewed History is negative for any acute cardiopulmonary process. X-ray shows no acute findings of either foot. No findings of osteomyelitis. There is further concern for a 3 phase bone scan could be performed. Osseous demineralization and small vessel atherosclerosis adjustable PAD. Disposition Clinical Impression: Gangrene of toe of right foot Disposition: ADMITTED IP TO THIS HOSP Condition: Stable Is patient prescribed a controlled substance at d/c from ED?: No Referrals: Shar Cedeño MD [Primary Care Provider] - 1-2 days Time of Disposition: 13:58
[2018-06-25 12:12] LABS: Anisocytosis Slight; Basophils # (A) 0.1 k/uL (0-0.2); Basophils % (A) 0 %; Eosinophils # (A) 0.5 k/uL (0-0.7); Eosinophils % (A) 5 %; HCT 27.8 % (39.0-53.0); HGB 9.4 gm/dL (13.0-17.5); Lymphocytes # (A) 2.9 k/uL (1.0-4.8); Lymphocytes % (A) 28 %; MCH 27.9 pg (25.0-35.0); MCHC 33.7 g/dL (31.0-37.0); MCV 82.9 fL (80.0-100.0); Mean Platelet Volume 6.7; Monocytes # (A) 0.5 k/uL (0-1.0); Monocytes % (A) 5 %; Neutrophils # (A) 6.1 k/uL (1.3-7.7); Neutrophils % (A) 59 %; Platelet Count 276 k/uL (150-450); Poikilocytosis Slight; RBC 3.36 m/uL (4.30-5.90); RDW 16.5 % (11.5-15.5); WBC 10.4 k/uL (3.8-10.6)
[2018-06-25 12:19] LABS: Albumin 3.2 g/dL (3.5-5.0); Calcium 8.8 mg/dL (8.4-10.2); Potassium 4.3 mmol/L (3.5-5.1); Total Bilirubin 0.3 mg/dL (0.2-1.3); Total Protein 5.8 g/dL (6.3-8.2)
--- NOTE | 2018-06-25 12:25 | XR ---
EXAMINATION TYPE: XR chest 2V DATE OF EXAM: 06/25/2018 COMPARISON: Prior chest x-ray 03/05/2018 and CTA chest 03/05/2018 HISTORY: Pain, chronic wound to toes, history COPD thoracic aortic aneurysm TECHNIQUE: Frontal and lateral views of the chest are obtained on 3 images. FINDINGS: Patient is rotated. There is elevation of left hemidiaphragm. Bandlike area of increased d ensity at the left lung base persists and may represent scarring rather than atelectasis. No evident pneumothorax or pleural effusion. Aorta is dense and aneurysmal as noted on previous exam. There are coronary calcifications present. IMPRESSION: No acute cardiopulmonary process.
--- NOTE | 2018-06-25 12:28 | XR ---
EXAMINATION TYPE: XR foot complete bilateral DATE OF EXAM: 06/25/2018 CLINICAL HISTORY: Chronic feet wounds TECHNIQUE: Frontal, lateral, and oblique images of the bilateral feet are obtained. COMPARISON: None FINDINGS: There is no acute fracture/dislocation evident in either foot. Flexion deformities and lat eral angulation at the distal interphalangeal joints and metatarsophalangeal joints respectively slig htly limiting evaluation. Gross evidence of periosteal reaction or cortical destruction to suggest os teomyelitis. There is a moderate plantar heel spur noted. There is diffuse osseous demineralization t hroughout. The overlying soft tissue appears unremarkable. Bilateral small vessel atherosclerosis chong ggest peripheral arterial disease. IMPRESSION: 1. No acute fracture or dislocation in either foot. 2. No findings to suggest osteomyelitis. There is further concern 3 phase bone scan could be performe d. 3. Osseous demineralization and small vessel atherosclerosis suggestive of peripheral arterial diseas e.
[2018-06-25] MEDS ORDERED: PIPERACILLIN-TAZOBACTAM 3.375 GM in DEXTROSE/WATER 1 50ML.BAG IVPB STA (13:30)
[2018-06-25] MEDS ORDERED: NALOXONE 0.4 MG/ML 1 ML VIAL IV PRN (13:59)
[2018-06-25] MEDS ORDERED: TEMAZEPAM 15 MG CAP PO PRN (13:59)
[2018-06-25] MEDS ORDERED: IBUPROFEN 400 MG TAB PO PRN (13:59)
[2018-06-25] MEDS ORDERED: MORPHINE SULFATE 4 MG/ML SYRINGE IV PRN (13:59)
[2018-06-25] MEDS ORDERED: ACETAMINOPHEN TAB 325 MG TAB PO PRN (13:59)
[2018-06-25] MEDS ORDERED: ONDANSETRON 4 MG/2 ML VIAL IVP PRN (13:59)
[2018-06-25] MEDS ORDERED: RANOLAZINE 500 MG TAB.ER.12H PO PRN (14:02)
[2018-06-25] MEDS ORDERED: BISACODYL 10 MG SUPP RECTAL PRN (14:02)
[2018-06-25 17:22] LABS: Glucose,Whole Blood 131 mg/dL (75-99)
[2018-06-25] MEDS: INSULIN ASPART 100 UNIT/ML 1 ML 10 ML VIAL SQ SCH ×2 (17:56→21:18)
[2018-06-25] MEDS: SYMBICORT 80-4.5 MCG INHALER INHALATION SCH (19:19)
[2018-06-25] MEDS: METOPROLOL TARTRATE 12.5 MG TAB PO SCH (21:15)
[2018-06-25] MEDS: FERROUS SULFATE 325 MG TAB PO SCH (21:15)
[2018-06-25] MEDS: guaiFENesin 600 MG TABLET.ER PO SCH (21:15)
[2018-06-25 21:21] LABS: Glucose,Whole Blood 114 mg/dL (75-99)
[2018-06-25] MEDS: MENTHOL-ZINC OXIDE OINT 113 GM TUBE TOPICAL SCH (21:29)
[2018-06-26] MEDS: PIPERACILLIN-TAZOBACTAM 3.375 GM in DEXTROSE/WATER 1 50ML.BAG IVPB SCH ×4 (00:07→23:31)
[2018-06-26 07:07] LABS: Glucose,Whole Blood 106 mg/dL (75-99)
[2018-06-26] MEDS: SODIUM CHLORIDE 0.9% 1,000 ML IV SCH ×2 (07:33→17:21)
[2018-06-26] MEDS: INSULIN ASPART 100 UNIT/ML 1 ML 10 ML VIAL SQ SCH ×4 (07:33→21:27)
[2018-06-26] MEDS: SYMBICORT 80-4.5 MCG INHALER INHALATION SCH ×2 (08:02→19:35)
[2018-06-26] MEDS: guaiFENesin 600 MG TABLET.ER PO SCH ×2 (08:05→21:26)
[2018-06-26] MEDS: metFORMIN 500 MG TAB PO SCH (08:05)
[2018-06-26] MEDS: PANTOPRAZOLE 40 MG TABLET PO SCH (08:06)
[2018-06-26] MEDS: FERROUS SULFATE 325 MG TAB PO SCH ×2 (08:06→21:26)
[2018-06-26] MEDS: METOPROLOL TARTRATE 12.5 MG TAB PO SCH ×2 (08:06→21:27)
[2018-06-26] MEDS: MAGNESIUM HYDROXIDE 2,400 MG/10 ML CUP PO PRN (08:15)
[2018-06-26] MEDS: MENTHOL-ZINC OXIDE OINT 113 GM TUBE TOPICAL SCH ×2 (08:16→21:27)
--- NOTE | 2018-06-26 08:54 | P.HPIM ---
History of Present Illness H&P Date: 06/26/18 Chief Complaint: Diabetic ulcers second toe right foot Mr. Hobbs is a patient well-known to my practice, patient presents with a dry scaby wound, right second toe. Patient was discharged from [facility] approximately 3 weeks ago had been seeing a visiting physician in the home. The visiting physicians suggested that patient present to the hospital for possible dry gangrene. Mr. Hobbs has limited sensation in bilateral feet he has type 2 diabetes that is currently well controlled he has a history of cardiac disease including a abdominal aortic aneurysm repair several years ago. He has a little or no complaints denies chest pain has recently had a cardiac catheterization no shortness of breath Review of Systems Ears: bilateral: decreased hearing Ears, nose, mouth and throat: Reports as per HPI Cardiovascular: Reports as per HPI Respiratory: Reports as per HPI Gastrointestinal: Reports as per HPI Genitourinary: Reports as per HPI Musculoskeletal: Reports as per HPI Integumentary: Reports brittle nails, Reports change in hair/nails, Reports wounds Neurological: Reports as per HPI, Reports sensory deficit (Diabetic neuropathy bilateral feet) Psychiatric: Reports as per HPI Endocrine: Reports high blood sugars Hematologic/Lymphatic: Reports as per HPI Past Medical History Past Medical History: Coronary Artery Disease (CAD), Cancer, COPD, CVA/TIA, Diabetes Mellitus, GERD/Reflux, Hypertension, Osteoarthritis (OA), Pulmonary Embolus (PE) Additional Past Medical History / Comment(s): TIAs (1996), past falls, squamous cell skin ca, murmur, "leaky haert valve"constipation History of Any Multi-Drug Resistant Organisms: MRSA Date of last positivie culture/infection: 02/15/18 MDRO Source:: BLOOD Past Surgical History: Bowel Resection, Heart Catheterization With Stent, Joint Replacement, Orthopedic Surgery Additional Past Surgical History / Comment(s): AAA repair (1995), various procedures to remove skin lesions/cancerous skin lesions , bowel sx d/t obstruction,cataracts, has stent to lad, wounds rt foot 2nd toe, lt great toe and bottom Past Anesthesia/Blood Transfusion Reactions: No Reported Reaction Additional Past Anesthesia/Blood Transfusion Reaction / Comment(s): slow to come out Date of Last Stent Placement:: 04-28-18 Smoking Status: Former smoker - Past Family History Mother Additional Family Medical History / Comment(s): "old age" at 92 years old Father Family Medical History: Cancer Additional Family Medical History / Comment(s): Hodgkins Lymphoma- at age 53 Medications and Allergies Home Medications Medication Instructions Recorded Confirmed Type Omeprazole 20 mg PO DAILY 10/16/15 06/25/18 History Aspirin 81 mg PO DAILY chew 02/18/18 06/25/18 Rx Docusate [Colace] 100 mg PO BID cap 02/18/18 06/25/18 Rx Polyethylene Glycol 3350 [Miralax] 17 gm PO DAILY #30 packet 02/18/18 06/25/18 Rx guaiFENesin [Mucinex] 600 mg PO Q12HR tablet.er 02/18/18 06/25/18 Rx Ferrous Sulfate [Iron (65 MG 325 mg PO BID 03/23/18 06/25/18 History Elemental)] Hydrochlorothiazide [Hydrodiuril] 25 mg PO QAM 03/23/18 06/25/18 History Ergocalciferol (Vitamin D2) 50,000 unit PO TH 04/23/18 06/25/18 History [Vitamin D2] Atorvastatin [Lipitor] 80 mg PO DAILY #90 tab 04/29/18 06/25/18 Rx Clopidogrel [Plavix] 75 mg PO DAILY #90 tab 04/29/18 06/25/18 Rx Fluticasone/Salmeterol [Advair 1 puff INHALATION RT-BID 06/25/18 06/25/18 History 250-50 Diskus] Metoprolol Tartrate [Lopressor] 12.5 mg PO BID 06/25/18 06/25/18 History metFORMIN HCL [Glucophage] 500 mg PO DAILY 06/25/18 06/25/18 History Allergies Allergy/AdvReac Type Severity Reaction Status Date / Time No Known Allergies Allergy Verified 06/25/18 14:18 Physical Exam Osteopathic Statement: *. No significant issues noted on an osteopathic structural exam other than those noted in the History and Physical/Consult. Vitals: Vital Signs Temp Pulse Pulse Resp BP BP Pulse Ox 06/26/18 07:00 97.2 F L 74 17 123/68 96 06/25/18 22:45 98.1 F 79 20 118/71 98 06/25/18 15:30 97.8 F 86 16 156/89 98 06/25/18 13:59 88 20 139/79 99 06/25/18 12:00 89 20 139/74 100 06/25/18 10:34 98.3 F 90 18 104/69 99 Intake and Output 06/25/18 06/26/18 06/26/18 22:59 06:59 14:59 Intake Total 300 100 Output Total 100 Balance 300 100 -100 Intake: Oral 300 100 Output: Urine 100 Other: Voiding Method Urinal # Voids 4 2 General: [Patient awake, alert and oriented times 3. Patient in no acute distress.] Patient extremely hard of hearing HEENT: [PERRL. EOMI. No pharyngeal erythema or exudate.] Neck: [No adenopathy.] Cardiac: [Heart regular in rate and rhythm. No S3. No S4. No clicks, rubs. Grade 3 systolic ejection murmur Lungs: [Clear to auscultation bilaterally.] Abdomen: [No mass. No organomegaly. Bowel sounds presnt and normoactive in all 4 quadrants.] Extremes: Patient has 5 cm x 3 cm wound to the dorsum of the second right toe large scabby dry, patient has a 2 x 2 centimeter lesion on the dorsum of the left great toe appears healing, dorsalis pedis is faint but present could not appreciate posterior tibial on the right foot : [] Musculoskeletal: [No joint erythema, edema or tenderness.] Skin: [No rash.] Neurologic: [No lateralizing deficits. CN II - XII grossly intact.] Lymphatic: [No adenopathy.] Results CBC & Chem 7: 06/25/18 11:50 06/25/18 11:50 Labs: Abnormal Lab Results - Last 24 Hours (Table) 06/25/18 06/25/18 06/25/18 Range/Units 11:50 11:50 17:20 RBC 3.36 L (4.30-5.90) m/uL Hgb 9.4 L (13.0-17.5) gm/dL Hct 27.8 L (39.0-53.0) % RDW 16.5 H (11.5-15.5) % BUN 27 H (9-20) mg/dL POC Glucose (mg/dL) 131 H (75-99) mg/dL Total Protein 5.8 L (6.3-8.2) g/dL Albumin 3.2 L (3.5-5.0) g/dL 06/25/18 06/26/18 Range/Units 21:17 07:05 RBC (4.30-5.90) m/uL Hgb (13.0-17.5) gm/dL Hct (39.0-53.0) % RDW (11.5-15.5) % BUN (9-20) mg/dL POC Glucose (mg/dL) 114 H 106 H (75-99) mg/dL Total Protein (6.3-8.2) g/dL Albumin (3.5-5.0) g/dL Microbiology - Last 24 Hours (Table) 06/25/18 11:30 Gram Stain - Preliminary Toe - Right Second Wound Culture - Preliminary Thrombosis Risk Factor Assmnt - DVT/VTE Prophylaxis DVT/VTE Prophylaxis: Pharmacologic Prophylaxis ordered - Choose All That Apply Any of the Below Risk Factors Present?: Yes Each Factor Represents 1 point: Abnormal pulmonary function (COPD), Acute UT, History of: (Abdominal aortic aneurysm) Other Risk Factors: Yes Each Risk Factor Represents 3 Points: Age 75 years or older, History of DVT/PE Other congenital or acquired thrombophilia - If yes, enter type in comment: No Thrombosis Risk Factor Assessment Total Risk Factor Score: 9 Thrombosis Risk Factor Assessment Level: High Risk Assessment and Plan (1) Gangrene of toe of right foot Narrative/Plan: Three-phase bone scan ordered Bilateral lower extreme arterial Dopplers to assess for adequate blood supply for healing Vascular consult Current Visit: Yes Status: Acute Code(s): I96 - GANGRENE, NOT ELSEWHERE CLASSIFIED SNOMED Code(s): 10349726212393611 (2) Dehydration Narrative/Plan: Chronic patient being hydrated at this time Current Visit: No Status: Acute Code(s): E86.0 - DEHYDRATION SNOMED Code(s ): 96443115 (3) Dyspnea Narrative/Plan: COPD by history chronic anemia by history Current Visit: No Status: Acute Code(s): R06.00 - DYSPNEA, UNSPECIFIED SNOMED Code(s): 907737284 Plan: 3 phase bone scan Arterial studies A vascular consult An infectious disease consult patient is otherwise doing quite well we will continue to follow closely Time with Patient: Greater than 30
[2018-06-26] MEDS ORDERED: PANTOPRAZOLE 40 MG/10 ML VIAL IV SCH (09:00)
[2018-06-26] MEDS: POLYETHYLENE GLYCOL 3350 17 GM POWD.PACK PO SCH (11:11)
[2018-06-26] MEDS: ASPIRIN 81 MG PO SCH (11:11)
[2018-06-26] MEDS: CLOPIDOGREL 75 MG TAB PO SCH (11:12)
[2018-06-26] MEDS: HYDROCHLOROTHIAZIDE 25 MG TAB PO SCH (11:12)
[2018-06-26 11:36] LABS: Glucose,Whole Blood 151 mg/dL (75-99)
[2018-06-26] MEDS: ATORVASTATIN 80 MG TAB PO SCH (11:45)
--- NOTE | 2018-06-26 14:50 | NM ---
EXAMINATION TYPE: NM bone 3 phase DATE OF EXAM: 06/26/2018 COMPARISON: Bilateral feet 06/25/2018 HISTORY: Osteomyelitis toe, side unspecified. Triple phase bone scintigraphy was performed following the injection of 19.2 mCi Tc 99m MDP. Immedia te images and 4.5 hours post injection images acquired. FINDINGS: Blood flow: Essentially Symmetrical blood flow to the distal extremities appears to be present. Subtl e asymmetry with slight greater on the right compared to the left is not excluded. Blood pool: There is slight increased radiotracer within the great toe on the left and in the mid met atarsal phalangeal joint region on the right. Static images: There is focal radiotracer accumulation at the first metatarsal metatarsal region. Thi s could be within the cuneiform. There is increased radiotracer at the region of the metatarsophalang eal joint space of the left great toe. Some mild uptake in the region of the third right metatarsal p halangeal joint space may be present. IMPRESSION: 1. Very subtle changes to suggest uptake on blood flow and blood pool in the mid metatarsal phalangea l joint space region, perhaps third digit, as well as uptake on static images could suggest very sameer y osteomyelitis. Correlate for any open wounds and points of concern. 2. Focal uptake on static images within the region of the medial cuneiform or cuneiform metatarsal ju nction region of the left foot may be degenerative or posttraumatic in nature. 3. Uptake within the region of the first metatarsal phalangeal joint space great toe left foot most l ikely degenerative. There is uptake on blood pool within this region as well although no underlying i ncreased blood flow suggest osteomyelitis.
[2018-06-26] MEDS ORDERED: LIDOCAINE 1% INJ 10MG/ML (20 ML MDV) SQ ONE (15:00)
[2018-06-26 16:37] VITALS: BMI 22.4
[2018-06-26] MEDS: HYDROcodone/APAP 5-325MG 1 EACH TAB PO PRN (17:10)
[2018-06-26] MEDS: COLLAGENASE 250 UNIT/GM OINTMENT 30 GM TUBE TOPICAL SCH (17:11)
[2018-06-26 17:28] LABS: Glucose,Whole Blood 119 mg/dL (75-99)
--- NOTE | 2018-06-26 18:43 | OP ---
OPERATIVE REPORT PREOP DIAGNOSIS: Chronic wound right foot second toe dorsum aspect. Measurement is 2 x 2 cm. PROCEDURE: Under local 1% lidocaine was infiltrated. After prepped and drapes applied, we used a knife. We excised the necrotic wound on the top of the toe. Deepened through skin and this was almost down to the bone. Necrotic tissue was removed and no bleeding was noted. Tissue was sent for culture and sensitivity. Santyl cream applied to the wound. The patient tolerated the procedure well. This patient most likely will need amputation. Discussed with the patient and the family. In the meantime we will continue the Santyl cream. MMODL / IJN: [id number] /
[2018-06-26 20:55] LABS: Glucose,Whole Blood 158 mg/dL (75-99)
--- NOTE | 2018-06-26 23:46 | P.CONS ---
History of Present Illness - Reason for Consult Consult date: 06/26/18 - Chief Complaint Ulcer right foot second toe - History of Present Illness 88-year-old male with has multiple medical troubles that include severe coronary artery disease. The patient relates that earlier this year he is having ongoing difficulties regarding his chest pain. He was available by cardiology and was thought he was not a candidate for any interventions. Despite attempting to maximize his medical therapy continued to have chest pain. In consequently it appears a technical staff engineer remitted and a cardiac catheterization and stent was applied. Apparently afterwards the patient has not had significant improvement of his chest pain with the procedure. However he has had further changes in his medications relates that his chest pain was starting to improve. Lowers developed evidence some gangrenous changes to his right foot second toe and constantly was brought to the hospital for further intervention. With his pain control is modest at this point in time and he is denying fevers chills rigors or sweats. Review of Systems HEENT:Denies headache or acute visual change. Denies sinus or mouth discomforts. Denies neck stiffness or pain. Denies significant oral cavity pain. Denies difficulty on swallowing. Lungs:Has chronic shortness of breath but denies new cough sputum production or hemoptysis Cardiovascular: Has chronic shortness of breath dyspnea on exertion has been having chronic chest pain that essentially improved as of late with changes of his medications Gastrointestinal:Denies nausea, vomiting, diarrhea, constipation, hematemesis, melena, hematochezia. No no significant change of bowel habit noticed. Musculoskeletal: denies significant myalgias or arthralgias. No new joint swelling. Denies new back pain. Skin: As per the HPI Neuro: Denies headache or visual change. Denies any new onset weakness or difficulty with ambulation. Denies falls or seizures. Psychiatric:Denies anxiety or depression. Endocrine: Stiffing fatigue and is losing weight he has not been eating well Past Medical History Past Medical History: Coronary Artery Disease (CAD), Cancer, COPD, CVA/TIA, Diabetes Mellitus, GERD/Reflux, Hypertension, Osteoarthritis (OA), Pulmonary Embolus (PE) Additional Past Medical History / Comment(s): TIAs (1996), past falls, squamous cell skin ca, murmur, "leaky haert valve"constipation History of Any Multi-Drug Resistant Organisms: MRSA Year Discovered:: 02/15/18 MDRO Source:: BLOOD Past Surgical History: Bowel Resection, Heart Catheterization With Stent, Joint Replacement, Orthopedic Surgery Additional Past Surgical History / Comment(s): AAA repair (1995), various procedures to remove skin lesions/cancerous skin lesions , bowel sx d/t obstruction,cataracts, has stent to lad, wounds rt foot 2nd toe, lt great toe and bottom Past Anesthesia/Blood Transfusion Reactions: No Reported Reaction Additional Past Anesthesia/Blood Transfusion Reaction / Comm: slow to come out Date of Last Stent Placement:: 04-28-18 Additional Psychological History / Comment(s): Single. Retired labor. No experience. No travel history. That animal exposures. Has stopped tobacco smoking apparently within the last 20 years. Smoking Status: Former smoker - Past Family History Mother Additional Family Medical History / Comment(s): "old age" at 92 years old Father Family Medical History: Cancer Additional Family Medical History / Comment(s): Hodgkins Lymphoma- at age 53 Medications and Allergies Home Medications and Allergies Comment(s): Current Medications Acetaminophen (Tylenol Tab) 650 mg PO Q6HR PRN PRN Reason: Mild Pain or Fever > 100.5 Hydrocodone Bitart/Acetaminophen (Atkins 5-325) 1 each PO Q4HR PRN PRN Reason: Moderate Pain Last Admin: 06/26/18 17:10 Dose: 1 each Aspirin (Aspirin) 81 mg PO DAILY [facility] Last Admin: 06/26/18 11:11 Dose: 81 mg Atorvastatin Calcium (Lipitor) 80 mg PO DAILY [facility] Last Admin: 06/26/18 11:45 Dose: 80 mg Bisacodyl (Dulcolax) 10 mg RECTAL DAILY PRN PRN Reason: Constipation Budesonide/Formoterol Fumarate (Symbicort 80-4.5 Mcg Inhaler) 2 puff INHALATION RT-BID [facility] Last Admin: 06/26/18 19:35 Dose: 2 puff Calamine/Phenol (Risamine Oint) 1 applic TOPICAL BID [facility] Last Admin: 06/26/18 21:27 Dose: 1 applic Clopidogrel Bisulfate (Plavix) 75 mg PO DAILY [facility] Last Admin: 06/26/18 11:12 Dose: 75 mg Collagenase (Santyl) 1 applic TOPICAL DAILY [facility] Last Admin: 06/26/18 17:11 Dose: 1 applic Ergocalciferol (Vitamin D2) 50,000 unit PO TH [facility] Ferrous Sulfate (Feosol) 325 mg PO BID [facility] Last Admin: 06/26/18 21:26 Dose: 325 mg Guaifenesin (Mucinex) 600 mg PO Q12HR [facility] Last Admin: 06/26/18 21:26 Dose: 600 mg Hydrochlorothiazide (Hydrodiuril) 25 mg PO QAM [facility] Last Admin: 06/26/18 11:12 Dose: 25 mg Sodium Chloride (Saline 0.9%) 1,000 mls @ 100 mls/hr IV .Q10H [facility] Last Admin: 06/26/18 17:21 Dose: 100 mls/hr Piperacillin/Tazobactam/ (Dextrose 3.375 gm/ IV Solution) 50 mls @ 12.5 mls/hr IVPB Q8H [facility] Last Admin: 06/26/18 23:31 Dose: 12.5 mls/hr Ibuprofen (Motrin) 400 mg PO Q6HR PRN PRN Reason: Mild Pain or Fever > 100.5 Insulin Aspart (Novolog) 0 unit SQ [facility]; Protocol Last Admin: 06/26/18 21:27 Dose: 1 unit Magnesium Hydroxide (Milk Of Magnesia) 2,400 mg PO DAILY PRN PRN Reason: CONSTIPATION Last Admin: 06/26/18 08:15 Dose: 2,400 mg Metformin HCl (Glucophage) 500 mg PO [facility] Last Admin: 06/26/18 08:05 Dose: 500 mg Metoprolol Tartrate (Lopressor) 12.5 mg PO BID [facility] Last Admin: 06/26/18 21:27 Dose: 12.5 mg Morphine Sulfate (Morphine Sulfate (Inj)) 4 mg IV Q4HR PRN PRN Reason: Severe Pain Naloxone HCl (Narcan) 0.2 mg IV Q2M PRN PRN Reason: Opioid Reversal Ondansetron HCl (Zofran) 4 mg IVP Q8HR PRN PRN Reason: Nausea And Vomiting Pantoprazole Sodium (Protonix) 40 mg PO [facility] Last Admin: 06/26/18 08:06 Dose: 40 mg Polyethylene Glycol (Miralax) 17 gm PO DAILY [facility] Last Admin: 06/26/18 11:11 Dose: 17 gm Ranolazine (Ranexa) 500 mg PO QAM PRN PRN Reason: FOR SBP ABOVE 100 Temazepam (Restoril) 15 mg PO HS PRN PRN Reason: Insomnia Home Medications Medication Instructions Recorded Confirmed Type Omeprazole 20 mg PO DAILY 10/16/15 06/25/18 History Aspirin 81 mg PO DAILY chew 02/18/18 06/25/18 Rx Docusate [Colace] 100 mg PO BID cap 02/18/18 06/25/18 Rx Polyethylene Glycol 3350 [Miralax] 17 gm PO DAILY #30 packet 02/18/18 06/25/18 Rx guaiFENesin [Mucinex] 600 mg PO Q12HR tablet.er 02/18/18 06/25/18 Rx Ferrous Sulfate [Iron (65 MG 325 mg PO BID 03/23/18 06/25/18 History Elemental)] Hydrochlorothiazide [Hydrodiuril] 25 mg PO QAM 03/23/18 06/25/18 History Ergocalciferol (Vitamin D2) 50,000 unit PO TH 04/23/18 06/25/18 History [Vitamin D2] Atorvastatin [Lipitor] 80 mg PO DAILY #90 tab 04/29/18 06/25/18 Rx Clopidogrel [Plavix] 75 mg PO DAILY #90 tab 04/29/18 06/25/18 Rx Fluticasone/Salmeterol [Advair 1 puff INHALATION RT-BID 06/25/18 06/25/18 History 250-50 Diskus] Metoprolol Tartrate [Lopressor] 12.5 mg PO BID 06/25/18 06/25/18 History metFORMIN HCL [Glucophage] 500 mg PO DAILY 06/25/18 06/25/18 History Allergies Allergy/AdvReac Type Severity Reaction Status Date / Time No Known Allergies Allergy Verified 06/25/18 14:18 Physical Exam Vitals: Vital Signs Temp Pulse Resp BP Pulse Ox 06/26/18 15:32 97.9 F 68 18 121/74 99 06/26/18 07:00 97.2 F L 74 17 123/68 96 Intake and Output 06/26/18 06/26/18 06/27/18 14:59 22:59 06:59 Intake Total 250 350 Output Total 300 700 Balance -50 -350 Intake: Intake, IV Titration 50 350 Amount Piperacillin-Tazobactam 3 50 50 .375 gm In Dextrose/Water 1 50ml.bag @ 12.5 mls/hr IVPB Q8H [facility] Rx#: [id number] Sodium Chloride 0.9% 1, 300 000 ml @ 100 mls/hr IV . Q10H [facility] Rx#:[id number] Oral 200 Output: Urine 300 700 Other: Voiding Method Urinal Urinal # Voids 1 # Bowel Movements 1 Weight 74.843 kg 88-year-old male who is quite uncomfortable HEENT: Anicteric conjunctiva are pink and moist nasal mucosa grossly intact without significant lesions, there is no thrush. Neck: The neck is supple without significant lymphadenopathy or thyromegaly. Lungs: Symmetrical air entry is noted, expiratory wheezes are scattered, no stiff and dullness or egophony is noted. Heart: Irregular with an audible S1 and S2 soft S4 2/6 systolic murmur left sternal border without radiation, PMI is nondisplaced no heave or thrill Abdomen: Positive bowel sounds soft and nontender without palpable masses or organomegaly. There was no guarding or rebound. Extremities: The upper extremities have equal pulses they are symmetric, no significant petechiae or telangiectasia. No splinter hemorrhages were noted. Lower extremities have trace pedal edema. There is evidence of a significant ulceration to the right foot second toe that has a gangrenous changes. There is erythema and swelling. There is some erythema that ascends onto the foot Neuro: Awake alert oriented to person place and time. The patient does not have any acute gross focal sensory motor deficits Results CBC & Chem 7: 06/25/18 11:50 06/25/18 11:50 Labs: Abnormal Lab Results - Last 24 Hours (Table) 06/26/18 06/26/18 06/26/18 Range/Units 07:05 11:34 17:14 POC Glucose (mg/dL) 106 H 151 H 119 H (75-99) mg/dL 06/26/18 Range/Units 20:51 POC Glucose (mg/dL) 158 H (75-99) mg/dL Microbiology - Last 24 Hours (Table) 06/26/18 16:00 Anaerobic Culture - Preliminary Toe - Right Second 06/26/18 16:00 Wound Culture - Preliminary Toe - Right Second 06/25/18 11:50 Blood Culture - Preliminary Blood No Growth after 24 hours 06/25/18 11:30 Gram Stain - Preliminary Toe - Right Second Wound Culture - Preliminary Presumptive Staph aureus Laboratory Results WBC 10.4 k/uL (3.8-10.6) 06/25/18 11:50 RBC 3.36 m/uL (4.30-5.90) L 06/25/18 11:50 Hgb 9.4 gm/dL (13.0-17.5) L 06/25/18 11:50 Hct 27.8 % (39.0-53.0) L 06/25/18 11:50 MCV 82.9 fL (80.0-100.0) 06/25/18 11:50 MCH 27.9 pg (25.0-35.0) 06/25/18 11:50 MCHC 33.7 g/dL (31.0-37.0) 06/25/18 11:50 RDW 16.5 % (11.5-15.5) H 06/25/18 11:50 Plt Count 276 k/uL (150-450) 06/25/18 11:50 Neutrophils % 59 % 06/25/18 11:50 Lymphocytes % 28 % 06/25/18 11:50 Monocytes % 5 % 06/25/18 11:50 Eosinophils % 5 % 06/25/18 11:50 Basophils % 0 % 06/25/18 11:50 Neutrophils # 6.1 k/uL (1.3-7.7) 06/25/18 11:50 Lymphocytes # 2.9 k/uL (1.0-4.8) 06/25/18 11:50 Monocytes # 0.5 k/uL (0-1.0) 06/25/18 11:50 Eosinophils # 0.5 k/uL (0-0.7) 06/25/18 11:50 Basophils # 0.1 k/uL (0-0.2) 06/25/18 11:50 Poikilocytosis Slight 06/25/18 11:50 Anisocytosis Slight 06/25/18 11:50 Sodium 137 mmol/L (137-145) 06/25/18 11:50 Potassium 4.3 mmol/L (3.5-5.1) 06/25/18 11:50 Chloride 102 mmol/L (98-107) 06/25/18 11:50 Carbon Dioxide 26 mmol/L (22-30) 06/25/18 11:50 Anion Gap 9 mmol/L 06/25/18 11:50 BUN 27 mg/dL (9-20) H 06/25/18 11:50 Creatinine 1.24 mg/dL (0.66-1.25) 06/25/18 11:50 Est GFR (CKD-EPI)AfAm 61 (>60 ml/min/1.73 sqM) 06/25/18 11:50 Est GFR (CKD-EPI)NonAf 53 (>60 ml/min/1.73 sqM) 06/25/18 11:50 Glucose 80 mg/dL (74-99) 06/25/18 11:50 POC Glucose (mg/dL) 158 mg/dL (75-99) H 06/26/18 20:51 POC Glu Resolute Professional ID Ingrid Crowley 06/26/18 20:51 Calcium 8.8 mg/dL (8.4-10.2) 06/25/18 11:50 Total Bilirubin 0.3 mg/dL (0.2-1.3) 06/25/18 11:50 AST 26 U/L (17-59) 06/25/18 11:50 ALT 27 U/L (21-72) 06/25/18 11:50 Alkaline Phosphatase 70 U/L (38-126) 06/25/18 11:50 Total Protein 5.8 g/dL (6.3-8.2) L 06/25/18 11:50 Albumin 3.2 g/dL (3.5-5.0) L 06/25/18 11:50 Microbiology 06/26/18 16:00 Toe - Right Second Anaerobic Culture - Preliminary 06/26/18 16:00 Toe - Right Second Wound Culture - Preliminary 06/25/18 11:50 Blood Blood Culture - Preliminary No Growth after 24 hours 06/25/18 11:30 Toe - Right Second Gram Stain - Preliminary 06/25/18 11:30 Toe - Right Second Wound Culture - Preliminary Presumptive Staph aureus Assessment and Plan (1) Gangrene of toe of right foot Narrative/Plan: 88-year-old male that has severe peripheral vascular disease and significant underlying coronary artery disease. He has been told by his technical staff engineer that he is not a candidate for any significant surgical procedures. He was seen by vascular surgery. Santyl will be applied to the site. He may require debridement which could possibly be done at bedside with local anesthesia. Antibiotic therapy has been started with Zosyn, prior cultures are reviewed and there is a history of prior MRSA, the Vanco SHAAN of 2. With his elevated creatinine and need for surgery we'll utilize daptomycin addition to Zosyn for now by final cultures are pending. Local wound care with Santyl as requested. Elevation of the limit rest. A wrap will be applied as he tolerates. Prognosis is poor. Current Visit: Yes Status: Acute Code(s): I96 - GANGRENE, NOT ELSEWHERE CLASSIFIED SNOMED Code(s): 43366944272220827
[2018-06-27] MEDS: DAPTOmycin 500 MG in SODIUM CHLORIDE 0.9% 50 ML IVPB SCH ×2 (00:03→23:33)
[2018-06-27] MEDS: SODIUM CHLORIDE 0.9% 1,000 ML IV SCH ×2 (04:15→13:58)
[2018-06-27] MEDS: HYDROcodone/APAP 5-325MG 1 EACH TAB PO PRN (04:15)
[2018-06-27 07:17] LABS: Glucose,Whole Blood 114 mg/dL (75-99)
[2018-06-27] MEDS: INSULIN ASPART 100 UNIT/ML 1 ML 10 ML VIAL SQ SCH ×4 (07:32→21:08)
--- NOTE | 2018-06-27 08:02 | P.PN ---
Subjective Progress Note Date: 06/27/18 Principal diagnosis: Gangrene distal phalanx second toe on the right Patient is actually doing quite well we'll have significant bowel movement in has been quite hungry ever since we will change IVs to KVO. Vascular consultation appreciated and infectious disease consultation appreciated Objective - Vital Signs Vital signs: Vital Signs Temp 97.8 F 06/27/18 07:14 Pulse 76 06/27/18 07:14 Resp 18 06/27/18 07:14 BP 132/74 06/27/18 07:14 Pulse Ox 97 06/27/18 07:14 Intake & Output 06/26/18 06/27/18 06/27/18 18:59 06:59 18:59 Intake Total 600 400 Output Total 1000 125 Balance -400 400 -125 Weight 74.843 kg Intake: Intake, IV Titration 400 Amount Piperacillin-Tazobactam 3 100 .375 gm In Dextrose/Water 1 50ml.bag @ 12.5 mls/hr IVPB Q8H [facility] Rx#: [id number] Sodium Chloride 0.9% 1, 300 000 ml @ 100 mls/hr IV . Q10H [facility] Rx#:[id number] Oral 200 400 Output: Urine 1000 125 Other: Voiding Method Urinal # Voids 1 3 # Bowel Movements 1 - Exam General: [Patient awake, alert and oriented times 3. Patient in no acute distress.] HEENT: [PERRL. EOMI. No pharyngeal erythema or exudate.] Neck: [No adenopathy.] Cardiac: [Heart regular in rate and rhythm. No S3. No S4. No clicks, rubs. No murmur.] Lungs: [Clear to auscultation bilaterally.] Abdomen: [No mass. No organomegaly. Bowel sounds presnt and normoactive in all 4 quadrants.] Extremes: Patient has 5 cm x 3 cm x 1 cm subcu the second right toe large scab EI patient has 2 x 2 centimeter lesion on the dorsum of the left great toe appears to be healing dorsalis pedis is faint but present, could not appreciate posterior tibial on the right foot : [] Musculoskeletal: [No joint erythema, edema or tenderness.] Skin: [No rash.] Neurologic: [No lateralizing deficits. CN II - XII grossly intact.] Lymphatic: [No adenopathy.] - Labs CBC & Chem 7: 06/25/18 11:50 06/25/18 11:50 Labs: Abnormal Lab Results - Last 24 Hours (Table) 06/26/18 06/26/18 06/26/18 Range/Units 11:34 17:14 20:51 POC Glucose (mg/dL) 151 H 119 H 158 H (75-99) mg/dL 06/27/18 Range/Units 07:15 POC Glucose (mg/dL) 114 H (75-99) mg/dL Microbiology - Last 24 Hours (Table) 06/26/18 16:00 Gram Stain - Preliminary Toe - Right Second Wound Culture - Preliminary 06/26/18 16:00 Anaerobic Culture - Preliminary Toe - Right Second 06/25/18 11:50 Blood Culture - Preliminary Blood No Growth after 24 hours 06/25/18 11:30 Gram Stain - Preliminary Toe - Right Second Wound Culture - Preliminary Presumptive Staph aureus Assessment and Plan (1) Gangrene of toe of right foot Narrative/Plan: Three-phase bone scan suggestive of early osteomyelitis on the second toe on the right foot Bilateral lower extreme arterial Dopplers to assess for adequate blood supply for healing Vascular consult Current Visit: Yes Status: Acute Code(s): I96 - GANGRENE, NOT ELSEWHERE CLASSIFIED SNOMED Code(s): 63560724640811666 (2) Dehydration Narrative/Plan: Chronic patient being hydrated at this time, tolerating diet sugars stable Current Visit: No Status: Acute Code(s): E86.0 - DEHYDRATION SNOMED Code(s ): 41084586 (3) Dyspnea Narrative/Plan: COPD by history chronic anemia by history Significant coronary artery disease by history significant peripheral vascular disease by history Current Visit: No Status: Acute Code(s): R06.00 - DYSPNEA, UNSPECIFIED SNOMED Code(s): 198594108 Plan: 3 phase bone scan Arterial studies A vascular consult An infectious disease consult patient is otherwise doing quite well we will continue to follow closely Time with Patient: Greater than 30
[2018-06-27] MEDS: PIPERACILLIN-TAZOBACTAM 3.375 GM in DEXTROSE/WATER 1 50ML.BAG IVPB SCH ×2 (08:25→15:48)
[2018-06-27] MEDS: POLYETHYLENE GLYCOL 3350 17 GM POWD.PACK PO SCH (08:25)
[2018-06-27] MEDS: guaiFENesin 600 MG TABLET.ER PO SCH ×2 (08:25→21:02)
[2018-06-27] MEDS: ASPIRIN 81 MG PO SCH (08:25)
[2018-06-27] MEDS: metFORMIN 500 MG TAB PO SCH (08:26)
[2018-06-27] MEDS: FERROUS SULFATE 325 MG TAB PO SCH ×2 (08:26→21:02)
[2018-06-27] MEDS: CLOPIDOGREL 75 MG TAB PO SCH ×2 (08:26→08:57)
[2018-06-27] MEDS: ATORVASTATIN 80 MG TAB PO SCH (08:26)
[2018-06-27] MEDS: METOPROLOL TARTRATE 12.5 MG TAB PO SCH ×2 (08:26→21:02)
[2018-06-27] MEDS: HYDROCHLOROTHIAZIDE 25 MG TAB PO SCH (08:26)
[2018-06-27] MEDS: MENTHOL-ZINC OXIDE OINT 113 GM TUBE TOPICAL SCH ×2 (08:27→21:13)
[2018-06-27] MEDS: PANTOPRAZOLE 40 MG TABLET PO SCH (08:27)
[2018-06-27] MEDS: COLLAGENASE 250 UNIT/GM OINTMENT 30 GM TUBE TOPICAL SCH ×2 (08:28→15:11)
[2018-06-27] MEDS: SYMBICORT 80-4.5 MCG INHALER INHALATION SCH ×2 (08:57→19:50)
[2018-06-27 12:08] LABS: Glucose,Whole Blood 102 mg/dL (75-99)
--- NOTE | 2018-06-27 15:27 | P.PCN ---
Description of Procedure: 88-year-old gentleman, who has been admitted with a right foot second toe chronic wound and left foot big toe has superficial ulcer patient and had a wound debridement done yesterday of the right foot toe bone is exposed we've been treating with IV antibiotic and local wound care most likely he will and up with that having a toe amputation on the right foot because bone is exposed I will discuss with the Dr. Montiel and Dr. Ferro we will follow with you thank you
[2018-06-27 17:15] LABS: Glucose,Whole Blood 147 mg/dL (75-99)
[2018-06-27 20:55] LABS: Glucose,Whole Blood 133 mg/dL (75-99)
[2018-06-28] MEDS: PIPERACILLIN-TAZOBACTAM 3.375 GM in DEXTROSE/WATER 1 50ML.BAG IVPB SCH ×4 (00:38→23:51)
[2018-06-28 07:35] LABS: Glucose,Whole Blood 107 mg/dL (75-99)
[2018-06-28] MEDS: SYMBICORT 80-4.5 MCG INHALER INHALATION SCH ×2 (07:46→19:13)
[2018-06-28] MEDS: INSULIN ASPART 100 UNIT/ML 1 ML 10 ML VIAL SQ SCH ×4 (07:46→21:25)
[2018-06-28] MEDS: FERROUS SULFATE 325 MG TAB PO SCH ×2 (07:57→20:26)
[2018-06-28] MEDS: guaiFENesin 600 MG TABLET.ER PO SCH ×2 (07:57→20:26)
[2018-06-28] MEDS: METOPROLOL TARTRATE 12.5 MG TAB PO SCH ×2 (07:58→20:26)
[2018-06-28] MEDS: ATORVASTATIN 80 MG TAB PO SCH (07:58)
[2018-06-28] MEDS: POLYETHYLENE GLYCOL 3350 17 GM POWD.PACK PO SCH (07:58)
[2018-06-28] MEDS: PANTOPRAZOLE 40 MG TABLET PO SCH (07:58)
[2018-06-28] MEDS: HYDROCHLOROTHIAZIDE 25 MG TAB PO SCH (07:58)
[2018-06-28] MEDS: metFORMIN 500 MG TAB PO SCH (07:58)
[2018-06-28] MEDS: ASPIRIN 81 MG PO SCH (07:58)
[2018-06-28] MEDS: COLLAGENASE 250 UNIT/GM OINTMENT 30 GM TUBE TOPICAL SCH (07:59)
[2018-06-28] MEDS: MENTHOL-ZINC OXIDE OINT 113 GM TUBE TOPICAL SCH ×2 (07:59→20:28)
[2018-06-28] MEDS: CLOPIDOGREL 75 MG TAB PO SCH ×2 (10:47→12:09)
--- NOTE | 2018-06-28 11:12 | P.PN ---
Subjective Progress Note Date: 06/28/18 88-year-old male who presented to the emergency room on 06/25/2018 due to suspected infection of his right second toe. Patient reports he was at [facility] for rehab and was discharged home about three weeks ago. He states he has been receiving home therapy. He reports a wound to his left great toe and right second toe that started about five weeks ago. He states it started out looking like a pimple. He thought it was due to his slippers so he quit wearing them. The patient was started on IV antibiotics and admitted to the hospital for further evaluation. Infectious disease and vascular surgery were consulted. Cultures are positive for MRSA. He is receiving Zosyn and Daptomycin. Foot xray was negative for acute fracture and did not show findings of osteomyelitis. Osseous demineralization and small vessel arthrosclerosis suggestive of peripheral arterial disease. Bone scan was completed suggesting very early osteomyelitis. Dr. Funes performed bedside debridement of right second toe on 06/26/2018. Dressing changes with santyl are ordered. Objective - Vital Signs Vital signs: Vital Signs Temp 97.8 F 06/28/18 07:15 Pulse 82 06/28/18 07:15 Resp 16 06/28/18 07:15 BP 132/74 06/28/18 07:15 Pulse Ox 95 06/28/18 07:15 Intake & Output 06/27/18 06/28/18 06/28/18 18:59 06:59 18:59 Intake Total 50 Output Total 925 1350 Balance -875 -1350 Weight 74.843 kg Intake: Intake, IV Titration 50 Amount Piperacillin-Tazobactam 3 50 .375 gm In Dextrose/Water 1 50ml.bag @ 12.5 mls/hr IVPB Q8H [facility] Rx#: [id number] Output: Urine 925 1350 Other: Voiding Method Urinal Urinal # Voids 2 1 # Bowel Movements 0 - Exam GENERAL: This is a 88-year-old male in no apparent distress at the time of examination. Pleasant and cooperative. HEENT: Head is atraumatic, normocephalic. Pupils are equal, round, and reactive to light. Sclerae anicteric. Conjunctivae are clear. Mucus membranes of the mouth are moist. Neck is supple. RESPIRATORY: Clear to ausculation. No wheezes, rales, or rhonchi. No use of accessory muscles. Patient maintaining oxygen saturation greater than 92%. No chest wall tenderness is noted on palpation or with deep breathing. CARDIOVASCULAR: Regular rate and rhythm. S1 and S2 noted. Systolic murmur auscultated. No JVD noted. No S3 or S4 noted. GASTROINTESTINAL: No distention noted. Abdomen soft and round. Normal active bowel sounds auscultated x 4 quadrants. No pain or tenderness noted upon palpation. INTEGUMENTARY: No cyanosis. No jaundice. No rashes noted. Wound to dorsum of great left toe with sloughing present. Right second toe erythematous with large scabbed wound with areas of necrotic tissue. EXTREMITIES: No evidence of peripheral edema. No calf tenderness noted. NEUROLOGIC: Cranial nerves II-XII intact. PSYCHIATRIC: Awake, alert, and oriented X 3. Appropriate affect. Intact judgement and insight. - Labs CBC & Chem 7: 06/25/18 11:50 06/25/18 11:50 Labs: Abnormal Lab Results - Last 24 Hours (Table) 06/27/18 06/27/18 06/27/18 Range/Units 11:57 17:13 20:53 POC Glucose (mg/dL) 102 H 147 H 133 H (75-99) mg/dL 06/28/18 Range/Units 07:13 POC Glucose (mg/dL) 107 H (75-99) mg/dL Microbiology - Last 24 Hours (Table) 06/26/18 16:00 Gram Stain - Preliminary Toe - Right Second Wound Culture - Preliminary Presumptive MRSA 06/25/18 11:50 Blood Culture - Preliminary Blood No Growth after 48 hours 06/25/18 11:30 Gram Stain - Final Toe - Right Second Wound Culture - Final Methicillin resist S. aureus Assessment and Plan Plan: ASSESSMENT: Wound to right second toe, suggested early osteomyelitis, cultures + for MRSA, s /p debridement Wound to great left toe Coronary artery disease with history of stent placement to LAD, 04/2018 Diabetes mellitus, type II, hemoglobin A1c 6.0% History of AAA History of TIA, 1995 Peripheral vascular disease Hospitalization for abdominal pain secondary to fecal impaction, February 2018 History of nicotine dependence, in remission, patient quit smoking in 1995 Daily alcohol use PLAN: Infectious disease on consult. Appreciate recommendations and input Antibiotics per ID: Currently on Zosyn and daptomycin Dressing changes with [facility] Vascular surgery on consult. Appreciate recommendations and input Home meds as appropriate Monitor labs GI prophylaxis: Protonix 40 mg PO Daily DVT prophylaxis: Heparin 5000 units subcu q8 hours Monitor vital signs and address as appropriate Further recommendations pending patient's course Nurse practitioner note has been reviewed by physician. Signing provider agrees with the documented findings, assessment, and plan of care.
[2018-06-28 11:44] LABS: Anisocytosis Slight; Basophils % (A) 0 %; Eosinophils # (A) 0.3 k/uL (0-0.7); Eosinophils % (A) 5 %; HCT 26.4 % (39.0-53.0); HGB 8.8 gm/dL (13.0-17.5); Lymphocytes # (A) 1.8 k/uL (1.0-4.8); Lymphocytes % (A) 27 %; MCH 27.5 pg (25.0-35.0); MCHC 33.3 g/dL (31.0-37.0); MCV 82.6 fL (80.0-100.0); Mean Platelet Volume 7.1; Monocytes # (A) 0.4 k/uL (0-1.0); Monocytes % (A) 6 %; Neutrophils # (A) 4.1 k/uL (1.3-7.7); Neutrophils % (A) 61 %; Platelet Count 215 k/uL (150-450); RBC 3.19 m/uL (4.30-5.90); RDW 16.4 % (11.5-15.5); WBC 6.8 k/uL (3.8-10.6)
[2018-06-28 11:50] LABS: Glucose,Whole Blood 132 mg/dL (75-99)
[2018-06-28 12:01] LABS: Magnesium 1.5 mg/dL (1.6-2.3)
[2018-06-28] MEDS ORDERED: Magnesium Replacement Protocol 1 EACH MISC MISCELLANE PRN (12:55)
--- NOTE | 2018-06-28 13:57 | PN ---
PROGRESS NOTE Mr. Hobbs is an 88 -year-old gentleman. He has a right foot second toe chronic wound which he went for debridement. Bone is exposed. Patient posterior dorsalis pedis by the Doppler. Ankle brachia index is 0.81. PLAN: Amputation of toe. Discussed with Dr. Ulices Ferro and we will proceed tomorrow. Risks and complications discussed, nonhealing, infection. MMODL / IJN: [id number] /
[2018-06-28] MEDS: MAGNESIUM SULFATE-D5W PMX 1 GM in DEXTROSE/WATER 1 100ML.BAG IVPB SCH ×2 (14:20→15:38)
[2018-06-28] MEDS: HEPARIN SODIUM,PORCINE 5,000 UNIT/ML 1 ML VIAL SQ SCH ×2 (15:38→23:05)
[2018-06-28 16:51] LABS: Glucose,Whole Blood 180 mg/dL (75-99)
[2018-06-28] MEDS: MAGNESIUM HYDROXIDE 2,400 MG/10 ML CUP PO PRN (17:17)
[2018-06-28] MEDS: HYDROcodone/APAP 5-325MG 1 EACH TAB PO PRN (20:25)
[2018-06-28 20:44] LABS: Glucose,Whole Blood 159 mg/dL (75-99)
[2018-06-28] MEDS ORDERED: LIDOCAINE 1% 20 ML VIAL (10MG/ML) FOR IV START INTRADERMA PRN (21:34)
[2018-06-28] MEDS ORDERED: MIDAZOLAM 2 MG/2 ML VIAL IV PRN (21:34)
[2018-06-28] MEDS: DAPTOmycin 500 MG in SODIUM CHLORIDE 0.9% 50 ML IVPB SCH (23:05)
--- NOTE | 2018-06-28 23:27 | P.PN ---
Subjective Progress Note Date: 06/28/18 88-year-old male with has multiple medical troubles that include severe coronary artery disease. The patient relates that earlier this year he is having ongoing difficulties regarding his chest pain. He was available by cardiology and was thought he was not a candidate for any interventions. Despite attempting to maximize his medical therapy continued to have chest pain. In consequently it appears a outpatient dietitian remitted and a cardiac catheterization and stent was applied. Apparently afterwards the patient has not had significant improvement of his chest pain with the procedure. However he has had further changes in his medications relates that his chest pain was starting to improve. Lowers developed evidence some gangrenous changes to his right foot second toe and constantly was brought to the hospital for further intervention. With his pain control is modest at this point in time and he is denying fevers chills rigors or sweats. 07/01/2018 the patient has had some improvement of his status. He has been evaluated by vascular surgery and with the bony exposure to the operating room for the amputation of the toe. Objective - Vital Signs Vital signs: Vital Signs Temp 98.7 F 06/28/18 22:48 Pulse 75 06/28/18 22:48 Resp 16 06/28/18 22:48 BP 115/62 06/28/18 22:48 Pulse Ox 96 06/28/18 22:48 Intake & Output 06/28/18 06/28/18 06/29/18 06:59 18:59 06:59 Output Total 1350 500 Balance -1350 -500 Output: Urine 1350 500 Other: Voiding Method Urinal # Voids 1 3 2 # Bowel Movements 0 3 - Exam 88-year-old male who is quite uncomfortable HEENT: Anicteric conjunctiva are pink and moist nasal mucosa grossly intact without significant lesions, there is no thrush. Neck: The neck is supple without significant lymphadenopathy or thyromegaly. Lungs: Symmetrical air entry is noted, expiratory wheezes are scattered, no stiff and dullness or egophony is noted. Heart: Irregular with an audible S1 and S2 soft S4 2/6 systolic murmur left sternal border without radiation, PMI is nondisplaced no heave or thrill Abdomen: Positive bowel sounds soft and nontender without palpable masses or organomegaly. There was no guarding or rebound. Extremities: The upper extremities have equal pulses they are symmetric, no significant petechiae or telangiectasia. No splinter hemorrhages were noted. Lower extremities have trace pedal edema. There is evidence of a significant ulceration to the right foot second toe that has a gangrenous changes. There is erythema and swelling. There is some erythema that ascends onto the foot Neuro: Awake alert oriented to person place and time. The patient does not have any acute gross focal sensory motor deficits - Labs CBC & Chem 7: 06/28/18 11:32 06/28/18 11:32 Labs: Abnormal Lab Results - Last 24 Hours (Table) 06/28/18 06/28/18 06/28/18 Range/Units 07:13 11:27 11:32 RBC 3.19 L (4.30-5.90) m/uL Hgb 8.8 L (13.0-17.5) gm/dL Hct 26.4 L (39.0-53.0) % RDW 16.4 H (11.5-15.5) % Sodium (137-145) mmol/L Glucose (74-99) mg/dL POC Glucose (mg/dL) 107 H 132 H (75-99) mg/dL Magnesium (1.6-2.3) mg/dL 06/28/18 06/28/18 06/28/18 Range/Units 11:32 16:48 20:43 RBC (4.30-5.90) m/uL Hgb (13.0-17.5) gm/dL Hct (39.0-53.0) % RDW (11.5-15.5) % Sodium 134 L (137-145) mmol/L Glucose 121 H (74-99) mg/dL POC Glucose (mg/dL) 180 H 159 H (75-99) mg/dL Magnesium 1.5 L (1.6-2.3) mg/dL Microbiology - Last 24 Hours (Table) 06/26/18 16:00 Gram Stain - Final Toe - Right Second Wound Culture - Final Methicillin resist S. aureus 06/25/18 11:50 Blood Culture - Preliminary Blood No Growth after 72 hours Laboratory Results WBC 6.8 k/uL (3.8-10.6) 06/28/18 11:32 RBC 3.19 m/uL (4.30-5.90) L 06/28/18 11:32 Hgb 8.8 gm/dL (13.0-17.5) L 06/28/18 11:32 Hct 26.4 % (39.0-53.0) L 06/28/18 11:32 MCV 82.6 fL (80.0-100.0) 06/28/18 11:32 MCH 27.5 pg (25.0-35.0) 06/28/18 11:32 MCHC 33.3 g/dL (31.0-37.0) 06/28/18 11:32 RDW 16.4 % (11.5-15.5) H 06/28/18 11:32 Plt Count 215 k/uL (150-450) 06/28/18 11:32 Neutrophils % 61 % 06/28/18 11:32 Lymphocytes % 27 % 06/28/18 11:32 Monocytes % 6 % 06/28/18 11:32 Eosinophils % 5 % 06/28/18 11:32 Basophils % 0 % 06/28/18 11:32 Neutrophils # 4.1 k/uL (1.3-7.7) 06/28/18 11:32 Lymphocytes # 1.8 k/uL (1.0-4.8) 06/28/18 11:32 Monocytes # 0.4 k/uL (0-1.0) 06/28/18 11:32 Eosinophils # 0.3 k/uL (0-0.7) 06/28/18 11:32 Basophils # 0.0 k/uL (0-0.2) 06/28/18 11:32 Poikilocytosis Slight 06/25/18 11:50 Anisocytosis Slight 06/28/18 11:32 Sodium 134 mmol/L (137-145) L 06/28/18 11:32 Potassium 5.0 mmol/L (3.5-5.1) 06/28/18 11:32 Chloride 100 mmol/L (98-107) 06/28/18 11:32 Carbon Dioxide 27 mmol/L (22-30) 06/28/18 11:32 Anion Gap 7 mmol/L 06/28/18 11:32 BUN 13 mg/dL (9-20) 06/28/18 11:32 Creatinine 1.24 mg/dL (0.66-1.25) 06/28/18 11:32 Est GFR (CKD-EPI)AfAm 61 (>60 ml/min/1.73 sqM) 06/28/18 11:32 Est GFR (CKD-EPI)NonAf 53 (>60 ml/min/1.73 sqM) 06/28/18 11:32 Glucose 121 mg/dL (74-99) H 06/28/18 11:32 POC Glucose (mg/dL) 159 mg/dL (75-99) H 06/28/18 20:43 POC Glu Cavity Pump Operator ID Silvana Garcia 06/28/18 20:[address] Glu mg/dL 126 06/25/18 11:15 Hemoglobin A1c 6.0 % (4.0-6.0) 06/25/18 11:15 Calcium 9.0 mg/dL (8.4-10.2) 06/28/18 11:32 Magnesium 1.5 mg/dL (1.6-2.3) L 06/28/18 11:32 Total Bilirubin 0.3 mg/dL (0.2-1.3) 06/25/18 11:50 AST 26 U/L (17-59) 06/25/18 11:50 ALT 27 U/L (21-72) 06/25/18 11:50 Alkaline Phosphatase 70 U/L (38-126) 06/25/18 11:50 Total Protein 5.8 g/dL (6.3-8.2) L 06/25/18 11:50 Albumin 3.2 g/dL (3.5-5.0) L 06/25/18 11:50 Microbiology 06/26/18 16:00 Toe - Right Second Gram Stain - Final 06/26/18 16:00 Toe - Right Second Wound Culture - Final Methicillin resist S. aureus 06/25/18 11:50 Blood Blood Culture - Preliminary No Growth after 72 hours 06/25/18 11:30 Toe - Right Second Gram Stain - Final 06/25/18 11:30 Toe - Right Second Wound Culture - Final Methicillin resist S. aureus 06/26/18 16:00 Toe - Right Second Anaerobic Culture - Preliminary Assessment and Plan (1) Gangrene of toe of right foot Narrative/Plan: 88-year-old male that has severe peripheral vascular disease and significant underlying coronary artery disease. He has been told by his outpatient dietitian that he is not a candidate for any significant surgical procedures. He was seen by vascular surgery. Santyl will be applied to the site. He may require debridement which could possibly be done at bedside with local anesthesia. Antibiotic therapy has been started with Zosyn, prior cultures are reviewed and there is a history of prior MRSA, the Vanco SHAAN of 2. With his elevated creatinine and need for surgery we'll utilize daptomycin addition to Zosyn for now by final cultures are pending. Local wound care with Santyl as requested. Elevation of the limit rest. A wrap will be applied as he tolerates. Prognosis is poor. 06/28/2018 the patient has evidence of the necrosis to the toe and has been evaluated by the vascular surgeon with the bony exposure there is plans for an amputation of the toe. Antibiotic therapy continues with Zosyn and daptomycin for now with MRSA being isolated. Depending on the findings of surgery he may not need outpatient intravenous antibiotic therapy if amputation is able to resolve as the pain infection, potentially oral antibiotic follow-up can be utilized. Current Visit: Yes Status: Acute Code(s): I96 - GANGRENE, NOT ELSEWHERE CLASSIFIED SNOMED Code(s): 58723086016601385
[2018-06-29] MEDS: LACTATED RINGERS 1,000 ML IV SCH ×2 (05:57→20:37)
[2018-06-29 06:29] LABS: Anisocytosis Slight; Basophils % (A) 1 %; Eosinophils # (A) 0.3 k/uL (0-0.7); Eosinophils % (A) 5 %; HCT 27.2 % (39.0-53.0); HGB 8.9 gm/dL (13.0-17.5); Lymphocytes # (A) 1.8 k/uL (1.0-4.8); Lymphocytes % (A) 28 %; MCH 27.5 pg (25.0-35.0); MCHC 32.7 g/dL (31.0-37.0); Mean Platelet Volume 6.9; Monocytes # (A) 0.4 k/uL (0-1.0); Monocytes % (A) 6 %; Neutrophils # (A) 3.7 k/uL (1.3-7.7); Neutrophils % (A) 58 %; Platelet Count 194 k/uL (150-450); RBC 3.24 m/uL (4.30-5.90); RDW 16.4 % (11.5-15.5); WBC 6.4 k/uL (3.8-10.6)
[2018-06-29 06:45] LABS: Calcium 8.8 mg/dL (8.4-10.2); Potassium 4.1 mmol/L (3.5-5.1)
[2018-06-29 07:10] LABS: Glucose,Whole Blood 118 mg/dL (75-99)
[2018-06-29] MEDS: SYMBICORT 80-4.5 MCG INHALER INHALATION SCH ×2 (07:25→21:57)
[2018-06-29] MEDS: INSULIN ASPART 100 UNIT/ML 1 ML 10 ML VIAL SQ SCH ×4 (07:29→20:37)
[2018-06-29] MEDS: guaiFENesin 600 MG TABLET.ER PO SCH ×3 (07:30→20:37)
[2018-06-29] MEDS: PANTOPRAZOLE 40 MG TABLET PO SCH ×2 (07:30→11:44)
[2018-06-29] MEDS: metFORMIN 500 MG TAB PO SCH ×2 (07:30→12:02)
[2018-06-29] MEDS: FERROUS SULFATE 325 MG TAB PO SCH ×3 (07:30→21:23)
[2018-06-29] MEDS: ASPIRIN 81 MG PO SCH ×2 (07:30→11:43)
[2018-06-29] MEDS: POLYETHYLENE GLYCOL 3350 17 GM POWD.PACK PO SCH (07:31)
[2018-06-29] MEDS: HYDROCHLOROTHIAZIDE 25 MG TAB PO SCH ×2 (07:31→11:40)
[2018-06-29] MEDS: HEPARIN SODIUM,PORCINE 5,000 UNIT/ML 1 ML VIAL SQ SCH ×3 (07:31→23:29)
[2018-06-29] MEDS: PIPERACILLIN-TAZOBACTAM 3.375 GM in DEXTROSE/WATER 1 50ML.BAG IVPB SCH ×3 (07:32→23:29)
[2018-06-29] MEDS: METOPROLOL TARTRATE 12.5 MG TAB PO SCH ×2 (07:32→20:37)
[2018-06-29] MEDS: ATORVASTATIN 80 MG TAB PO SCH ×2 (07:33→11:43)
[2018-06-29] MEDS: COLLAGENASE 250 UNIT/GM OINTMENT 30 GM TUBE TOPICAL SCH ×2 (08:33→14:26)
[2018-06-29] MEDS: MENTHOL-ZINC OXIDE OINT 113 GM TUBE TOPICAL SCH ×3 (08:33→20:37)
[2018-06-29] MEDS ORDERED: IV FLUID CONTINUATION 1,000 ML IV ONE (08:40)
[2018-06-29 09:24] LABS: Glucose,Whole Blood 107 mg/dL (75-99)
--- NOTE | 2018-06-29 09:28 | P.EN ---
Patient coming down for right second toe ampuation. He has elected to be DNR, family at bedside and understand. He wants to continue DNR through the procedure, he will have minimal sedation with local anesthesia to the digit by the surgeon. Patient and family, along with my self and the surgeon have agreed to continue DNR status. Darvin Morales MD
[2018-06-29] MEDS ORDERED: fentaNYL (PF) 50 MCG/ML 2 ML AMP ONE (09:30)
[2018-06-29] MEDS ORDERED: MIDAZOLAM 2 MG/2 ML VIAL ONE (09:30)
[2018-06-29] MEDS ORDERED: LIDOCAINE 1% INJ 10MG/ML (20 ML MDV) SQ ONE ×2 (09:45)
[2018-06-29 10:36] LABS: Glucose,Whole Blood 105 mg/dL (75-99)
[2018-06-29] MEDS: CLOPIDOGREL 75 MG TAB PO SCH (11:40)
[2018-06-29 12:03] LABS: Glucose,Whole Blood 136 mg/dL (75-99)
--- NOTE | 2018-06-29 12:34 | P.PN ---
Subjective Progress Note Date: 06/29/18 88-year-old male who presented to the emergency room on 06/25/2018 due to suspected infection of his right second toe. Patient reports he was at [facility] for rehab and was discharged home about three weeks ago. He states he has been receiving home therapy. He reports a wound to his left great toe and right second toe that started about five weeks ago. He states it started out looking like a pimple. He thought it was due to his slippers so he quit wearing them. The patient was started on IV antibiotics and admitted to the hospital for further evaluation. Infectious disease and vascular surgery were consulted. Cultures are positive for MRSA. He is receiving Zosyn and Daptomycin. Foot xray was negative for acute fracture and did not show findings of osteomyelitis. Osseous demineralization and small vessel arthrosclerosis suggestive of peripheral arterial disease. Bone scan was completed suggesting very early osteomyelitis. Dr. Funse performed bedside debridement of right second toe on 06/26/2018. Dressing changes with santyl are ordered. 06/29/2018 Patient seen and examined at the bedside. Patient underwent amputation of right second toe today with Dr. Funes. Wound cultures are positive for MRSA. He remains on Zosyn and Daptomycin. Patient states he feels relieved that surgery is over as his toe infection was causing him a lot of stress. He denies any pain at this time. Dressing to right surgical site is CDI. Patient states he does not want to go back to [facility] at the time of discharge. He prefers to go home with home care and physical therapy. PT/OT are on consult and evaluations are pending. Patient appears very motivated and optimistic regarding his recovery and rehabilitation plan. Patient states 'I recently bought a new car and memo only put a couple hundred miles on it. My goal is to get well so I can go drive that car around town."Vital signs remain stable. Patient denies chest pain or pressure. Denies shortness of breath. Denies nausea or vomiting. Objective - Vital Signs Vital signs: Vital Signs Temp 96.8 F L 06/29/18 11:10 Pulse 68 06/29/18 11:10 Resp 18 06/29/18 11:10 BP 100/61 06/29/18 11:10 Pulse Ox 95 06/29/18 11:10 Intake & Output 06/28/18 06/29/1806/29/18 18:59 06:59 18:59 Intake Total 75 Output Total 500 550 10 Balance -500 -550 65 Intake: IV 75 Output: Urine 500 550 Estimated Blood Loss 10 Other: # Voids 3 2 # Bowel Movements 0 1 - Exam GENERAL: This is a 88-year-old male in no apparent distress at the time of examination. Pleasant and cooperative. HEENT: Head is atraumatic, normocephalic. Pupils are equal, round, and reactive to light. Sclerae anicteric. Conjunctivae are clear. Mucus membranes of the mouth are moist. Neck is supple. RESPIRATORY: Clear to ausculation. No wheezes, rales, or rhonchi. No use of accessory muscles. Patient maintaining oxygen saturation greater than 92%. No chest wall tenderness is noted on palpation or with deep breathing. CARDIOVASCULAR: Regular rate and rhythm. S1 and S2 noted. Systolic murmur auscultated. No JVD noted. No S3 or S4 noted. GASTROINTESTINAL: No distention noted. Abdomen soft and round. Normal active bowel sounds auscultated x 4 quadrants. No pain or tenderness noted upon palpation. INTEGUMENTARY: No cyanosis. No jaundice. No rashes noted. Wound to dorsum of great left toe with sloughing present. Right second toe s/p amputation. Dressing CDI. EXTREMITIES: No evidence of peripheral edema. No calf tenderness noted. NEUROLOGIC: Cranial nerves II-XII intact. PSYCHIATRIC: Awake, alert, and oriented X 3. Appropriate affect. Intact judgement and insight. - Labs CBC & Chem 7: 06/29/18 06:17 06/29/18 06:17 Labs: Abnormal Lab Results - Last 24 Hours (Table) 06/28/18 06/28/18 06/28/18 Range/Units 11:27 11:32 11:32 RBC 3.19 L (4.30-5.90) m/uL Hgb 8.8 L (13.0-17.5) gm/dL Hct 26.4 L (39.0-53.0) % RDW 16.4 H (11.5-15.5) % Sodium 134 L (137-145) mmol/L Creatinine (0.66-1.25) mg/dL Glucose 121 H (74-99) mg/dL POC Glucose (mg/dL) 132 H (75-99) mg/dL Magnesium 1.5 L (1.6-2.3) mg/dL 06/28/18 06/28/18 06/29/18 Range/Units 16:48 20:43 06:17 RBC 3.24 L (4.30-5.90) m/uL Hgb 8.9 L (13.0-17.5) gm/dL Hct 27.2 L (39.0-53.0) % RDW 16.4 H (11.5-15.5) % Sodium (137-145) mmol/L Creatinine (0.66-1.25) mg/dL Glucose (74-99) mg/dL POC Glucose (mg/dL) 180 H 159 H (75-99) mg/dL Magnesium (1.6-2.3) mg/dL 06/29/18 06/29/18 06/29/18 Range/Units 06:17 07:00 09:22 RBC (4.30-5.90) m/uL Hgb (13.0-17.5) gm/dL Hct (39.0-53.0) % RDW (11.5-15.5) % Sodium 135 L (137-145) mmol/L Creatinine 1.26 H (0.66-1.25) mg/dL Glucose 107 H (74-99) mg/dL POC Glucose (mg/dL) 118 H 107 H (75-99) mg/dL Magnesium (1.6-2.3) mg/dL 06/29/18 Range/Units 10:21 RBC (4.30-5.90) m/uL Hgb (13.0-17.5) gm/dL Hct (39.0-53.0) % RDW (11.5-15.5) % Sodium (137-145) mmol/L Creatinine (0.66-1.25) mg/dL Glucose (74-99) mg/dL POC Glucose (mg/dL) 105 H (75-99) mg/dL Magnesium (1.6-2.3) mg/dL Microbiology - Last 24 Hours (Table) 06/26/18 16:00 Gram Stain - Final Toe - Right Second Wound Culture - Final Methicillin resist S. aureus 06/25/18 11:50 Blood Culture - Preliminary Blood No Growth after 72 hours Assessment and Plan Plan: ASSESSMENT: Wound to right second toe, suggested early osteomyelitis, cultures + for MRSA, s /p debridement, s/p amputation Wound to great left toe Coronary artery disease with history of stent placement to LAD, 04/2018 Diabetes mellitus, type II, hemoglobin A1c 6.0% History of AAA History of TIA, 1995 Peripheral vascular disease Hospitalization for abdominal pain secondary to fecal impaction, February 2018 History of nicotine dependence, in remission, patient quit smoking in 1995 Daily alcohol use PLAN: Infectious disease on consult. Appreciate recommendations and input Antibiotics per ID: Currently on Zosyn and daptomycin Vascular surgery on consult. Appreciate recommendations and input Home meds as appropriate Monitor labs GI prophylaxis: Protonix 40 mg PO Daily DVT prophylaxis: Heparin 5000 units subcu q8 hours Monitor vital signs and address as appropriate PT/OT on consult Discharge plan: Patient requesting to go home with home care and PT. Patient does not want to return to [facility]. Awaiting PT recommendations. Further recommendations pending patient's course Anticipate discharge home tomorrow if patient remains stable Nurse practitioner note has been reviewed by physician. Signing provider agrees with the documented findings, assessment, and plan of care.
--- NOTE | 2018-06-29 14:04 | OP ---
OPERATIVE REPORT PREOPERATIVE DIAGNOSIS: Infected gangrene right foot, second toe. OPERATION: Amputation of the right foot, second toe. ANESTHESIA: Local anesthesia with IV sedation. Patient brought to the operating room. Right foot was prepped and draped in the sterile manner. This patient has a long-standing history of hammertoe with infected right foot, second toe. Bone is exposed. An elliptical incision was made on the plantar dorsum aspect of the foot and went circumferentially around the proximal phalangeal joint on the right foot, deepened through skin, fat, and fascia. The tendons were divided on the plantar and dorsal aspect of the toe and proximal phalanx disarticulated from the interphalangeal joint. Specimen was removed. No active bleeding was noted. The wound was copiously irrigated with saline and subcu tissue was approximated with 3-0 Vicryl and skin was approximated with 3-0 nylon with interrupted suture. Dressing applied. Patient tolerated the procedure well. MMODL / IJN: [id number] /
[2018-06-29] MEDS: HYDROcodone/APAP 5-325MG 1 EACH TAB PO PRN ×2 (14:20→19:15)
[2018-06-29 17:03] LABS: Glucose,Whole Blood 154 mg/dL (75-99)
[2018-06-29 20:38] LABS: Glucose,Whole Blood 134 mg/dL (75-99)
[2018-06-29] MEDS: DAPTOmycin 500 MG in SODIUM CHLORIDE 0.9% 50 ML IVPB SCH (23:29)
--- NOTE | 2018-06-30 00:30 | P.PN ---
Subjective Progress Note Date: 06/29/18 88-year-old male with has multiple medical troubles that include severe coronary artery disease. The patient relates that earlier this year he is having ongoing difficulties regarding his chest pain. He was available by cardiology and was thought he was not a candidate for any interventions. Despite attempting to maximize his medical therapy continued to have chest pain. In consequently it appears a maintenance technician remitted and a cardiac catheterization and stent was applied. Apparently afterwards the patient has not had significant improvement of his chest pain with the procedure. However he has had further changes in his medications relates that his chest pain was starting to improve. Lowers developed evidence some gangrenous changes to his right foot second toe and constantly was brought to the hospital for further intervention. With his pain control is modest at this point in time and he is denying fevers chills rigors or sweats. 06/28/2018 the patient has had some improvement of his status. He has been evaluated by vascular surgery and with the bony exposure to the operating room for the amputation of the toe. 06/29/2018 the patient will Refer him this morning for the amputation of the toe. No other acute difficulties are noted Objective - Vital Signs Vital signs: Vital Signs Temp 97.3 F L 06/29/18 23:00 Pulse 77 06/29/18 23:00 Resp 14 06/29/18 23:00 BP 107/60 06/29/18 23:00 Pulse Ox 96 06/29/18 23:00 Intake & Output 06/29/18 06/29/18 06/30/18 06:59 18:59 06:59 Intake Total 1325 Output Total 550 1210 250 Balance -550 115 -250 Weight 74.843 kg Intake: IV 75 Intake, IV Titration 50 Amount Piperacillin-Tazobactam 3 50 .375 gm In Dextrose/Water 1 50ml.bag @ 12.5 mls/hr IVPB Q8H [facility] Rx#: [id number] Oral 1200 Output: Urine 550 1200 250 Estimated Blood Loss 10 Other: Voiding Method Urinal # Voids 2 1 # Bowel Movements 1 1 - Exam 88-year-old male who is quite uncomfortable HEENT: Anicteric conjunctiva are pink and moist nasal mucosa grossly intact without significant lesions, there is no thrush. Neck: The neck is supple without significant lymphadenopathy or thyromegaly. Lungs: Symmetrical air entry is noted, expiratory wheezes are scattered, no stiff and dullness or egophony is noted. Heart: Irregular with an audible S1 and S2 soft S4 2/6 systolic murmur left sternal border without radiation, PMI is nondisplaced no heave or thrill Abdomen: Positive bowel sounds soft and nontender without palpable masses or organomegaly. There was no guarding or rebound. Extremities: The upper extremities have equal pulses they are symmetric, no significant petechiae or telangiectasia. No splinter hemorrhages were noted. Lower extremities have trace pedal edema. There is evidence of a significant ulceration to the right foot second toe that has a gangrenous changes. There is erythema and swelling. There is some erythema that ascends onto the foot Neuro: Awake alert oriented to person place and time. The patient does not have any acute gross focal sensory motor deficits - Labs CBC & Chem 7: 06/29/18 06:17 06/29/18 06:17 Labs: Abnormal Lab Results - Last 24 Hours (Table) 06/29/18 06/29/18 06/29/18 Range/Units 06:17 06:17 07:00 RBC 3.24 L (4.30-5.90) m/uL Hgb 8.9 L (13.0-17.5) gm/dL Hct 27.2 L (39.0-53.0) % RDW 16.4 H (11.5-15.5) % Sodium 135 L (137-145) mmol/L Creatinine 1.26 H (0.66-1.25) mg/dL Glucose 107 H (74-99) mg/dL POC Glucose (mg/dL) 118 H (75-99) mg/dL 06/29/18 06/29/18 06/29/18 Range/Units 09:22 10:21 11:37 RBC (4.30-5.90) m/uL Hgb (13.0-17.5) gm/dL Hct (39.0-53.0) % RDW (11.5-15.5) % Sodium (137-145) mmol/L Creatinine (0.66-1.25) mg/dL Glucose (74-99) mg/dL POC Glucose (mg/dL) 107 H 105 H 136 H (75-99) mg/dL 06/29/18 06/29/18 Range/Units 16:45 20:36 RBC (4.30-5.90) m/uL Hgb (13.0-17.5) gm/dL Hct (39.0-53.0) % RDW (11.5-15.5) % Sodium (137-145) mmol/L Creatinine (0.66-1.25) mg/dL Glucose (74-99) mg/dL POC Glucose (mg/dL) 154 H 134 H (75-99) mg/dL Microbiology - Last 24 Hours (Table) 06/25/18 11:50 Blood Culture - Preliminary Blood No Growth after 96 hours Laboratory Results WBC 6.4 k/uL (3.8-10.6) 06/29/18 06:17 RBC 3.24 m/uL (4.30-5.90) L 06/29/18 06:17 Hgb 8.9 gm/dL (13.0-17.5) L 06/29/18 06:17 Hct 27.2 % (39.0-53.0) L 06/29/18 06:17 MCV 84.0 fL (80.0-100.0) 06/29/18 06:17 MCH 27.5 pg (25.0-35.0) 06/29/18 06:17 MCHC 32.7 g/dL (31.0-37.0) 06/29/18 06:17 RDW 16.4 % (11.5-15.5) H 06/29/18 06:17 Plt Count 194 k/uL (150-450) 06/29/18 06:17 Neutrophils % 58 % 06/29/18 06:17 Lymphocytes % 28 % 06/29/18 06:17 Monocytes % 6 % 06/29/18 06:17 Eosinophils % 5 % 06/29/18 06:17 Basophils % 1 % 06/29/18 06:17 Neutrophils # 3.7 k/uL (1.3-7.7) 06/29/18 06:17 Lymphocytes # 1.8 k/uL (1.0-4.8) 06/29/18 06:17 Monocytes # 0.4 k/uL (0-1.0) 06/29/18 06:17 Eosinophils # 0.3 k/uL (0-0.7) 06/29/18 06:17 Basophils # 0.0 k/uL (0-0.2) 06/29/18 06:17 Poikilocytosis Slight 06/25/18 11:50 Anisocytosis Slight 06/29/18 06:17 Sodium 135 mmol/L (137-145) L 06/29/18 06:17 Potassium 4.1 mmol/L (3.5-5.1) 06/29/18 06:17 Chloride 100 mmol/L (98-107) 06/29/18 06:17 Carbon Dioxide 27 mmol/L (22-30) 06/29/18 06:17 Anion Gap 8 mmol/L 06/29/18 06:17 BUN 14 mg/dL (9-20) 06/29/18 06:17 Creatinine 1.26 mg/dL (0.66-1.25) H 06/29/18 06:17 Est GFR (CKD-EPI)AfAm 59 (>60 ml/min/1.73 sqM) 06/29/18 06:17 Est GFR (CKD-EPI)NonAf 51 (>60 ml/min/1.73 sqM) 06/29/18 06:17 Glucose 107 mg/dL (74-99) H 06/29/18 06:17 POC Glucose (mg/dL) 134 mg/dL (75-99) H 06/29/18 20:36 POC Glu Surgical Scrub Technician MEGHAN Angeles Gonzalez 06/29/18 20:[address] Glu mg/dL 126 06/25/18 11:15 Hemoglobin A1c 6.0 % (4.0-6.0) 06/25/18 11:15 Calcium 8.8 mg/dL (8.4-10.2) 06/29/18 06:17 Magnesium 2.0 mg/dL (1.6-2.3) 06/29/18 06:17 Total Bilirubin 0.3 mg/dL (0.2-1.3) 06/25/18 11:50 AST 26 U/L (17-59) 06/25/18 11:50 ALT 27 U/L (21-72) 06/25/18 11:50 Alkaline Phosphatase 70 U/L (38-126) 06/25/18 11:50 Total Protein 5.8 g/dL (6.3-8.2) L 06/25/18 11:50 Albumin 3.2 g/dL (3.5-5.0) L 06/25/18 11:50 Microbiology 06/25/18 11:50 Blood Blood Culture - Preliminary No Growth after 96 hours 06/26/18 16:00 Toe - Right Second Gram Stain - Final 06/26/18 16:00 Toe - Right Second Wound Culture - Final Methicillin resist S. aureus 06/25/18 11:30 Toe - Right Second Gram Stain - Final 06/25/18 11:30 Toe - Right Second Wound Culture - Final Methicillin resist S. aureus 06/26/18 16:00 Toe - Right Second Anaerobic Culture - Preliminary Assessment and Plan (1) Gangrene of toe of right foot Narrative/Plan: 88-year-old male that has severe peripheral vascular disease and significant underlying coronary artery disease. He has been told by his maintenance technician that he is not a candidate for any significant surgical procedures. He was seen by vascular surgery. Santyl will be applied to the site. He may require debridement which could possibly be done at bedside with local anesthesia. Antibiotic therapy has been started with Zosyn, prior cultures are reviewed and there is a history of prior MRSA, the Vanco SHAAN of 2. With his elevated creatinine and need for surgery we'll utilize daptomycin addition to Zosyn for now by final cultures are pending. Local wound care with Santyl as requested. Elevation of the limit rest. A wrap will be applied as he tolerates. Prognosis is poor. 06/28/2018 the patient has evidence of the necrosis to the toe and has been evaluated by the vascular surgeon with the bony exposure there is plans for an amputation of the toe. Antibiotic therapy continues with Zosyn and daptomycin for now with MRSA being isolated. Depending on the findings of surgery he may not need outpatient intravenous antibiotic therapy if amputation is able to resolve as the pain infection, potentially oral antibiotic follow-up can be utilized. 06/29/2018 the patient will have the amputation of the toe today. This will allow resolution of the stomach and infectious process. Cultures will help direct some follow-up oral antibiotic therapy to ensure no further difficulties but imaging studies failed to reveal evidence of osteomyelitis into the foot proper. Local wound care and elevation will be important for the healing of this foot in an 88-year-old man. Current Visit: Yes Status: Acute Code(s): I96 - GANGRENE, NOT ELSEWHERE CLASSIFIED SNOMED Code(s): [id number]
[2018-06-30] MEDS: HEPARIN SODIUM,PORCINE 5,000 UNIT/ML 1 ML VIAL SQ SCH ×4 (01:08→23:59)
[2018-06-30] MEDS: HYDROcodone/APAP 5-325MG 1 EACH TAB PO PRN ×4 (06:11→20:11)
[2018-06-30 07:21] LABS: Glucose,Whole Blood 110 mg/dL (75-99)
[2018-06-30] MEDS: SYMBICORT 80-4.5 MCG INHALER INHALATION SCH ×2 (07:47→20:12)
[2018-06-30 07:50] LABS: Calcium 8.5 mg/dL (8.4-10.2)
[2018-06-30] MEDS: INSULIN ASPART 100 UNIT/ML 1 ML 10 ML VIAL SQ SCH ×4 (08:00→21:36)
[2018-06-30 08:02] LABS: Anisocytosis Slight; Basophils % (A) 0 %; Eosinophils # (A) 0.4 k/uL (0-0.7); Eosinophils % (A) 5 %; Lymphocytes # (A) 1.8 k/uL (1.0-4.8); Lymphocytes % (A) 22 %; MCH 27.9 pg (25.0-35.0); MCHC 33.2 g/dL (31.0-37.0); Monocytes # (A) 0.5 k/uL (0-1.0); Monocytes % (A) 6 %; Neutrophils # (A) 5.2 k/uL (1.3-7.7); Neutrophils % (A) 66 %; Platelet Count 203 k/uL (150-450); RBC 3.22 m/uL (4.30-5.90); RDW 16.7 % (11.5-15.5)
[2018-06-30] MEDS: PIPERACILLIN-TAZOBACTAM 3.375 GM in DEXTROSE/WATER 1 50ML.BAG IVPB SCH ×2 (08:43→16:06)
[2018-06-30] MEDS: guaiFENesin 600 MG TABLET.ER PO SCH ×2 (08:44→20:11)
[2018-06-30] MEDS: HYDROCHLOROTHIAZIDE 25 MG TAB PO SCH (08:44)
[2018-06-30] MEDS: ATORVASTATIN 80 MG TAB PO SCH (08:44)
[2018-06-30] MEDS: CLOPIDOGREL 75 MG TAB PO SCH (08:44)
[2018-06-30] MEDS: POLYETHYLENE GLYCOL 3350 17 GM POWD.PACK PO SCH (08:44)
[2018-06-30] MEDS: ASPIRIN 81 MG PO SCH (08:45)
[2018-06-30] MEDS: FERROUS SULFATE 325 MG TAB PO SCH ×2 (08:45→20:11)
[2018-06-30] MEDS: metFORMIN 500 MG TAB PO SCH (08:45)
[2018-06-30] MEDS: METOPROLOL TARTRATE 12.5 MG TAB PO SCH ×2 (08:45→20:12)
[2018-06-30] MEDS: PANTOPRAZOLE 40 MG TABLET PO SCH (08:45)
[2018-06-30] MEDS: COLLAGENASE 250 UNIT/GM OINTMENT 30 GM TUBE TOPICAL SCH (08:46)
[2018-06-30] MEDS: MENTHOL-ZINC OXIDE OINT 113 GM TUBE TOPICAL SCH ×2 (08:46→20:11)
[2018-06-30 12:21] LABS: Glucose,Whole Blood 154 mg/dL (75-99)
--- NOTE | 2018-06-30 14:29 | P.PN ---
Subjective Progress Note Date: 06/30/18 88-year-old male who presented to the emergency room on 06/25/2018 due to suspected infection of his right second toe. Patient reports he was at [facility] for rehab and was discharged home about three weeks ago. He states he has been receiving home therapy. He reports a wound to his left great toe and right second toe that started about five weeks ago. He states it started out looking like a pimple. He thought it was due to his slippers so he quit wearing them. The patient was started on IV antibiotics and admitted to the hospital for further evaluation. Infectious disease and vascular surgery were consulted. Cultures are positive for MRSA. He is receiving Zosyn and Daptomycin. Foot xray was negative for acute fracture and did not show findings of osteomyelitis. Osseous demineralization and small vessel arthrosclerosis suggestive of peripheral arterial disease. Bone scan was completed suggesting very early osteomyelitis. Dr. Funes performed bedside debridement of right second toe on 06/26/2018. Dressing changes with santyl are ordered. 06/29/2018 Patient seen and examined at the bedside. Patient underwent amputation of right second toe today with Dr. Funes. Wound cultures are positive for MRSA. He remains on Zosyn and Daptomycin. Patient states he feels relieved that surgery is over as his toe infection was causing him a lot of stress. He denies any pain at this time. Dressing to right surgical site is CDI. Patient states he does not want to go back to [facility] at the time of discharge. He prefers to go home with home care and physical therapy. PT/OT are on consult and evaluations are pending. Patient appears very motivated and optimistic regarding his recovery and rehabilitation plan. Patient states 'I recently bought a new car and memo only put a couple hundred miles on it. My goal is to get well so I can go drive that car around town."Vital signs remain stable. Patient denies chest pain or pressure. Denies shortness of breath. Denies nausea or vomiting. 06/30/2018 Patient seen and examined at the bedside. Pain is tolerable. Patient has been up walking to the bathroom. Vital signs stable. PT evaluated patient and is safe to be discharged home with home care. Dr. Funes would like patient to receive at least 24 hours more of IV antibiotics before discharge. Objective - Vital Signs Vital signs: Vital Signs Temp 97.8 F 06/30/18 07:00 Pulse 74 06/30/18 07:00 Resp 18 06/30/18 07:00 BP 136/75 06/30/18 07:00 Pulse Ox 97 06/30/18 07:00 Intake & Output 06/29/18 06/30/18 06/30/18 18:59 06:59 18:59 Intake Total 1325 Output Total 1210 1250 Balance 115 -1250 Weight 74.843 kg Intake: IV 75 Intake, IV Titration 50 Amount Piperacillin-Tazobactam 3 50 .375 gm In Dextrose/Water 1 50ml.bag @ 12.5 mls/hr IVPB Q8H [facility] Rx#: [id number] Oral 1200 Output: Urine 1200 1250 Estimated Blood Loss 10 Other: Voiding Method Urinal Urinal # Voids 1 3 # Bowel Movements 1 - Exam GENERAL: This is a 88-year-old male in no apparent distress at the time of examination. Pleasant and cooperative. HEENT: Head is atraumatic, normocephalic. Pupils are equal, round, and reactive to light. Sclerae anicteric. Conjunctivae are clear. Mucus membranes of the mouth are moist. Neck is supple. RESPIRATORY: Clear to ausculation. No wheezes, rales, or rhonchi. No use of accessory muscles. Patient maintaining oxygen saturation greater than 92%. No chest wall tenderness is noted on palpation or with deep breathing. CARDIOVASCULAR: Regular rate and rhythm. S1 and S2 noted. Systolic murmur auscultated. No JVD noted. No S3 or S4 noted. GASTROINTESTINAL: No distention noted. Abdomen soft and round. Normal active bowel sounds auscultated x 4 quadrants. No pain or tenderness noted upon palpation. INTEGUMENTARY: No cyanosis. No jaundice. No rashes noted. Wound to dorsum of great left toe with sloughing present. Right second toe s/p amputation. EXTREMITIES: No evidence of peripheral edema. No calf tenderness noted. NEUROLOGIC: Cranial nerves II-XII intact. PSYCHIATRIC: Awake, alert, and oriented X 3. Appropriate affect. Intact judgement and insight. - Labs CBC & Chem 7: 06/30/18 07:14 06/30/18 07:14 Labs: Abnormal Lab Results - Last 24 Hours (Table) 06/29/18 06/29/18 06/30/18 Range/Units 16:45 20:36 07:14 RBC 3.22 L (4.30-5.90) m/uL Hgb 9.0 L (13.0-17.5) gm/dL Hct 27.0 L (39.0-53.0) % RDW 16.7 H (11.5-15.5) % Sodium (137-145) mmol/L Creatinine (0.66-1.25) mg/dL Glucose (74-99) mg/dL POC Glucose (mg/dL) 154 H 134 H (75-99) mg/dL 06/30/18 06/30/18 06/30/18 Range/Units 07:14 07:18 12:13 RBC (4.30-5.90) m/uL Hgb (13.0-17.5) gm/dL Hct (39.0-53.0) % RDW (11.5-15.5) % Sodium 135 L (137-145) mmol/L Creatinine 1.35 H (0.66-1.25) mg/dL Glucose 103 H (74-99) mg/dL POC Glucose (mg/dL) 110 H 154 H (75-99) mg/dL Microbiology - Last 24 Hours (Table) 06/25/18 11:50 Blood Culture - Preliminary Blood No Growth after 120 hours Assessment and Plan Plan: ASSESSMENT: Wound to right second toe, suggested early osteomyelitis, cultures + for MRSA, s /p debridement, s/p amputation Wound to great left toe Coronary artery disease with history of stent placement to LAD, 04/2018 Diabetes mellitus, type II, hemoglobin A1c 6.0% History of AAA History of TIA, 1995 Peripheral vascular disease Hospitalization for abdominal pain secondary to fecal impaction, February 2018 History of nicotine dependence, in remission, patient quit smoking in 1995 Daily alcohol use PLAN: Continue antibiotics. Await discharge antibiotic recommendations from Dr. Ferro. Possible discharge home with home care tomorrow or . Nurse practitioner note has been reviewed by physician. Signing provider agrees with the documented findings, assessment, and plan of care.
[2018-06-30 17:45] LABS: Glucose,Whole Blood 116 mg/dL (75-99)
--- NOTE | 2018-06-30 19:31 | PN ---
PROGRESS NOTE This gentleman had a right foot second toe amputation yesterday for chronic infected toe. Today is postop day. His stitches are intact. PLAN: We will continue with IV antibiotic, nonweightbearing and we will watch another 24 hours, then we will decide whether the patient can go home. ANA / JIM: [id number] /
[2018-06-30] MEDS: LACTATED RINGERS 1,000 ML IV SCH (20:11)
[2018-06-30 20:41] LABS: Glucose,Whole Blood 158 mg/dL (75-99)
[2018-06-30] MEDS: DAPTOmycin 500 MG in SODIUM CHLORIDE 0.9% 50 ML IVPB SCH (23:59)
[2018-07-01] MEDS: PIPERACILLIN-TAZOBACTAM 3.375 GM in DEXTROSE/WATER 1 50ML.BAG IVPB SCH ×3 (00:46→16:03)
[2018-07-01] MEDS: INSULIN ASPART 100 UNIT/ML 1 ML 10 ML VIAL SQ SCH ×4 (07:24→21:03)
[2018-07-01 07:31] LABS: Glucose,Whole Blood 120 mg/dL (75-99)
[2018-07-01] MEDS: SYMBICORT 80-4.5 MCG INHALER INHALATION SCH ×2 (07:37→19:46)
[2018-07-01 07:45] LABS: Anisocytosis Slight; Basophils % (A) 0 %; Eosinophils # (A) 0.3 k/uL (0-0.7); Eosinophils % (A) 4 %; HCT 26.7 % (39.0-53.0); HGB 8.8 gm/dL (13.0-17.5); Lymphocytes % (A) 24 %; MCH 27.3 pg (25.0-35.0); MCV 82.7 fL (80.0-100.0); Monocytes # (A) 0.5 k/uL (0-1.0); Monocytes % (A) 6 %; Neutrophils # (A) 5.5 k/uL (1.3-7.7); Neutrophils % (A) 65 %; Platelet Count 212 k/uL (150-450); RBC 3.23 m/uL (4.30-5.90); RDW 16.5 % (11.5-15.5); WBC 8.5 k/uL (3.8-10.6)
[2018-07-01 07:53] LABS: Calcium 8.5 mg/dL (8.4-10.2); Potassium 4.2 mmol/L (3.5-5.1)
[2018-07-01] MEDS: metFORMIN 500 MG TAB PO SCH (08:18)
[2018-07-01] MEDS: PANTOPRAZOLE 40 MG TABLET PO SCH (08:18)
[2018-07-01] MEDS: HEPARIN SODIUM,PORCINE 5,000 UNIT/ML 1 ML VIAL SQ SCH ×3 (08:18→21:29)
[2018-07-01] MEDS: CLOPIDOGREL 75 MG TAB PO SCH (08:19)
[2018-07-01] MEDS: ASPIRIN 81 MG PO SCH (08:19)
[2018-07-01] MEDS: ATORVASTATIN 80 MG TAB PO SCH (08:19)
[2018-07-01] MEDS: guaiFENesin 600 MG TABLET.ER PO SCH ×2 (08:20→21:28)
[2018-07-01] MEDS: HYDROCHLOROTHIAZIDE 25 MG TAB PO SCH (08:20)
[2018-07-01] MEDS: FERROUS SULFATE 325 MG TAB PO SCH ×2 (08:20→21:28)
[2018-07-01] MEDS: METOPROLOL TARTRATE 12.5 MG TAB PO SCH ×2 (08:22→21:29)
[2018-07-01] MEDS: MENTHOL-ZINC OXIDE OINT 113 GM TUBE TOPICAL SCH ×2 (08:22→21:28)
[2018-07-01] MEDS: POLYETHYLENE GLYCOL 3350 17 GM POWD.PACK PO SCH (08:22)
[2018-07-01] MEDS: HYDROcodone/APAP 5-325MG 1 EACH TAB PO PRN ×3 (08:24→18:01)
--- NOTE | 2018-07-01 08:38 | PN ---
PROGRESS NOTE Mr. Hobbs had a right foot second toe amputation and some cellulitis of left foot big toe. The patient is on IV antibiotic under care of Dr. Ferro. Incision site is healing. No discharge or redness noted. PLAN: We will discuss with Dr. Ferro about the antibiotic. If patient goes home, I will follow in my office next Thursday. Discussed with the patient and the nurses about the followup. MMODL / IJN: [id number] /
[2018-07-01] MEDS: COLLAGENASE 250 UNIT/GM OINTMENT 30 GM TUBE TOPICAL SCH (08:45)
[2018-07-01] MEDS ORDERED: ERGOCALCIFEROL 50,000 UNIT CAP PO SCH (09:00)
[2018-07-01 11:41] LABS: Glucose,Whole Blood 114 mg/dL (75-99)
--- NOTE | 2018-07-01 12:10 | P.PN ---
Subjective Progress Note Date: 07/01/18 88-year-old male who presented to the emergency room on 06/25/2018 due to suspected infection of his right second toe. Patient reports he was at [facility] for rehab and was discharged home about three weeks ago. He states he has been receiving home therapy. He reports a wound to his left great toe and right second toe that started about five weeks ago. He states it started out looking like a pimple. He thought it was due to his slippers so he quit wearing them. The patient was started on IV antibiotics and admitted to the hospital for further evaluation. Infectious disease and vascular surgery were consulted. Cultures are positive for MRSA. He is receiving Zosyn and Daptomycin. Foot xray was negative for acute fracture and did not show findings of osteomyelitis. Osseous demineralization and small vessel arthrosclerosis suggestive of peripheral arterial disease. Bone scan was completed suggesting very early osteomyelitis. Dr. Funes performed bedside debridement of right second toe on 06/26/2018. Dressing changes with santyl are ordered. 06/29/2018 Patient seen and examined at the bedside. Patient underwent amputation of right second toe today with Dr. Funes. Wound cultures are positive for MRSA. He remains on Zosyn and Daptomycin. Patient states he feels relieved that surgery is over as his toe infection was causing him a lot of stress. He denies any pain at this time. Dressing to right surgical site is CDI. Patient states he does not want to go back to [facility] at the time of discharge. He prefers to go home with home care and physical therapy. PT/OT are on consult and evaluations are pending. Patient appears very motivated and optimistic regarding his recovery and rehabilitation plan. Patient states 'I recently bought a new car and memo only put a couple hundred miles on it. My goal is to get well so I can go drive that car around town."Vital signs remain stable. Patient denies chest pain or pressure. Denies shortness of breath. Denies nausea or vomiting. 06/30/2018 Patient seen and examined at the bedside. Pain is tolerable. Patient has been up walking to the bathroom. Vital signs stable. PT evaluated patient and is safe to be discharged home with home care. Dr. Funes would like patient to receive at least 24 hours more of IV antibiotics before discharge. 07/01/2018 Patient seen and examined at the bedside. Pain is tolerable. Vital signs remain stable. Patient denies SOB or CP. Evaluated by PT yesterday and deemed stable to be discharged home. Patient does not require SCAR. Objective - Vital Signs Vital signs: Vital Signs Temp 98.8 F 07/01/18 06:00 Pulse 94 07/01/18 06:00 Resp 20 07/01/18 06:00 BP 137/71 07/01/18 06:00 Pulse Ox 95 07/01/18 06:00 Intake & Output 06/30/18 07/01/18 07/01/18 18:59 06:59 18:59 Intake Total 100 Output Total 700 950 Balance -600 -950 Weight 74.843 kg Intake: Intake, IV Titration 100 Amount Piperacillin-Tazobactam 3 100 .375 gm In Dextrose/Water 1 50ml.bag @ 12.5 mls/hr IVPB Q8H [facility] Rx#: [id number] Output: Urine 700 950 Other: Voiding Method Urinal Urinal Urinal # Voids 3 # Bowel Movements 1 - Exam GENERAL: This is a 88-year-old male in no apparent distress at the time of examination. Pleasant and cooperative. HEENT: Head is atraumatic, normocephalic. Pupils are equal, round, and reactive to light. Sclerae anicteric. Conjunctivae are clear. Mucus membranes of the mouth are moist. Neck is supple. RESPIRATORY: Clear to ausculation. No wheezes, rales, or rhonchi. No use of accessory muscles. Patient maintaining oxygen saturation greater than 92%. No chest wall tenderness is noted on palpation or with deep breathing. CARDIOVASCULAR: Regular rate and rhythm. S1 and S2 noted. Systolic murmur auscultated. No JVD noted. No S3 or S4 noted. GASTROINTESTINAL: No distention noted. Abdomen soft and round. Normal active bowel sounds auscultated x 4 quadrants. No pain or tenderness noted upon palpation. INTEGUMENTARY: No cyanosis. No jaundice. No rashes noted. Gauze dressing to bilateral feet. Right second toe s/p amputation. EXTREMITIES: No evidence of peripheral edema. No calf tenderness noted. NEUROLOGIC: Cranial nerves II-XII intact. PSYCHIATRIC: Awake, alert, and oriented X 3. Appropriate affect. Intact judgement and insight. - Labs CBC & Chem 7: 07/01/18 07:13 07/01/18 07:13 Labs: Abnormal Lab Results - Last 24 Hours (Table) 06/30/18 06/30/18 06/30/18 Range/Units 12:13 17:21 20:40 RBC (4.30-5.90) m/uL Hgb (13.0-17.5) gm/dL Hct (39.0-53.0) % RDW (11.5-15.5) % Sodium (137-145) mmol/L Chloride (98-107) mmol/L Creatinine (0.66-1.25) mg/dL Glucose (74-99) mg/dL POC Glucose (mg/dL) 154 H 116 H 158 H (75-99) mg/dL 07/01/18 07/01/18 07/01/18 Range/Units 07:13 07:13 07:18 RBC 3.23 L (4.30-5.90) m/uL Hgb 8.8 L (13.0-17.5) gm/dL Hct 26.7 L (39.0-53.0) % RDW 16.5 H (11.5-15.5) % Sodium 134 L (137-145) mmol/L Chloride 97 L (98-107) mmol/L Creatinine 1.36 H (0.66-1.25) mg/dL Glucose 100 H (74-99) mg/dL POC Glucose (mg/dL) 120 H (75-99) mg/dL 07/01/18 Range/Units 11:38 RBC (4.30-5.90) m/uL Hgb (13.0-17.5) gm/dL Hct (39.0-53.0) % RDW (11.5-15.5) % Sodium (137-145) mmol/L Chloride (98-107) mmol/L Creatinine (0.66-1.25) mg/dL Glucose (74-99) mg/dL POC Glucose (mg/dL) 114 H (75-99) mg/dL Microbiology - Last 24 Hours (Table) 06/26/18 16:00 Anaerobic Culture - Final Toe - Right Second Anaerobic Gram Positive Cocci 06/25/18 11:50 Blood Culture - Preliminary Blood No Growth after 120 hours Assessment and Plan Plan: ASSESSMENT: Wound to right second toe, suggested early osteomyelitis, cultures + for MRSA, s /p debridement, s/p amputation Wound to great left toe Coronary artery disease with history of stent placement to LAD, 04/2018 Diabetes mellitus, type II, hemoglobin A1c 6.0% History of AAA History of TIA, 1995 Peripheral vascular disease Hospitalization for abdominal pain secondary to fecal impaction, February 2018 History of nicotine dependence, in remission, patient quit smoking in 1995 Suspected CKD stage III, patient has not been worked up for CKD outpatient, however GFR has remained less than 60 for greater than 3 months PLAN: Plan was for discharge home today. Patients jim Leslie is refusing discharge today. Spoke with Anuj in detail via phone. Anuj is concerned about patient being discharged home and is afraid he is not able to ambulate safely throughout his house. Anuj reports he works and can not be with son at all times. He has hired [employer] but states assistance is not 08/06. Anuj is concerned because he does not think patient has not ambulated enough. Agreeable to hold discharge until tomorrow. Son will be here at 8am and PSYCHOLOGIST EDUCATIONAL will discuss discharge plan with son, which will include discharge home tomorrow with home care. PSYCHOLOGIST EDUCATIONAL went back to the patients bedside to discuss phone conversation held with patients jim Leslie. RN, Aliza, present. ABI Jarrell, was nearby and was updated on sons concerns. PT, RN, and PSYCHOLOGIST EDUCATIONAL in room and patient agreeable to ambulate. Patient got out of chair independently and walked in his room and out in the hallway with walker. Patients gait is stable and appears to have no difficulties ambulating. Patient encouraged to continue to sit in the chair with legs elevated throughout the day and attempt to take a few more walks in the hallway today. Patient agreeable. Explained to patient that tomorrow morning when son arrives, PSYCHOLOGIST EDUCATIONAL will come back to the patients bedside and patient will demonstrate his ability to ambulate to his son to help ease his concerns regarding discharge. Nurse practitioner note has been reviewed by physician. Signing provider agrees with the documented findings, assessment, and plan of care.
--- NOTE | 2018-07-01 13:11 | CDI ---
Last Revision, October 2017 Documentation Clarification Form Date: 07/01/2018 12:49:25 PM From: Yessica Reyes RN, CCDS Admit Date: 06/25/2018 1:32:00 PM Patient Name: Benjamin Hobbs Visit Number: [id number] ATTENTION: The Clinical Documentation Specialists (CDI) and [facility] Coding Staff appreciate your assistance in clarifying documentation. Please respond to the clarification below the line at the bottom and electronically sign. The CDI & [facility] Coding staff will review the response and follow-up if needed. Please note: Queries are made part of the Legal Health Record. If you have any questions, please contact the author of this message via ITS. Dr. Cedeño /Kimberli Butler CNP Abnormal BUN, CR, GFR have been noted in the labs values with and increasingly elevated Creatinine. History/Risk Factors: CAD, COPD, DM, GERD, HTN, OA Clinical Indicators: 04/30 Patients baseline BUN/CR/GFR: 26/1.2/ 55 Current BUN: ///16 Cr: 1.24/ 1.26/1.35 GFR: 53/51/47 Treatment: IVF: LR @ 20 cc/hr In order to capture the severity of condition, please clarify if the condition signifies: Acute renal failure, Please specify etiology (if known): Cortical Necrosis Medullary Necrosis Tubular Necrosis Acute kidney injury Acute on chronic renal failure CKD Stage 1 GFR >90 CKD Stage 2 GFR 60-89 CKD Stage 3 GFR 30-59 CKD Stage 4 GFR 15-29 CKD Stage 5 GFR <15 Chronic renal failure/Chronic Kidney disease (CKD) please stage if known CKD Stage 1 GFR >90 CKD Stage 2 GFR 60-89 CKD Stage 3 GFR 30-59 CKD Stage 4 GFR 15-29 CKD Stage 5 GFR <15 ESRD Other, please specify ------>>>>>>>Unable to determine Please continue to document in your progress notes and discharge summary in order to capture severity of illness and risk of mortality. Include clinical findings that support your diagnosis. MTDD
[2018-07-01 17:33] LABS: Glucose,Whole Blood 146 mg/dL (75-99)
[2018-07-01 20:55] LABS: Glucose,Whole Blood 109 mg/dL (75-99)
[2018-07-01] MEDS: LACTATED RINGERS 1,000 ML IV SCH (21:28)
[2018-07-01 22:15] VITALS: TEMP 99.2
[2018-07-01] MEDS: DAPTOmycin 500 MG in SODIUM CHLORIDE 0.9% 50 ML IVPB SCH (23:47)
[2018-07-02] MEDS: PIPERACILLIN-TAZOBACTAM 3.375 GM in DEXTROSE/WATER 1 50ML.BAG IVPB SCH ×2 (00:29→07:52)
[2018-07-02] MEDS: HYDROcodone/APAP 5-325MG 1 EACH TAB PO PRN (05:52)
[2018-07-02 06:02] VITALS: BP 120/67; PULSE 86; RESP 14
[2018-07-02 07:14] LABS: Glucose,Whole Blood 121 mg/dL (75-99)
[2018-07-02] MEDS: INSULIN ASPART 100 UNIT/ML 1 ML 10 ML VIAL SQ SCH ×2 (07:49→13:52)
[2018-07-02] MEDS: FERROUS SULFATE 325 MG TAB PO SCH (07:52)
[2018-07-02] MEDS: HYDROCHLOROTHIAZIDE 25 MG TAB PO SCH (07:52)
[2018-07-02] MEDS: ATORVASTATIN 80 MG TAB PO SCH (07:52)
[2018-07-02] MEDS: ASPIRIN 81 MG PO SCH (07:52)
[2018-07-02] MEDS: CLOPIDOGREL 75 MG TAB PO SCH (07:52)
[2018-07-02] MEDS: METOPROLOL TARTRATE 12.5 MG TAB PO SCH (07:52)
[2018-07-02] MEDS: guaiFENesin 600 MG TABLET.ER PO SCH (07:52)
[2018-07-02] MEDS: POLYETHYLENE GLYCOL 3350 17 GM POWD.PACK PO SCH (07:53)
[2018-07-02] MEDS: HEPARIN SODIUM,PORCINE 5,000 UNIT/ML 1 ML VIAL SQ SCH (07:53)
[2018-07-02] MEDS: metFORMIN 500 MG TAB PO SCH (07:53)
[2018-07-02] MEDS: PANTOPRAZOLE 40 MG TABLET PO SCH (07:53)
[2018-07-02] MEDS: MENTHOL-ZINC OXIDE OINT 113 GM TUBE TOPICAL SCH (07:53)
[2018-07-02] MEDS: COLLAGENASE 250 UNIT/GM OINTMENT 30 GM TUBE TOPICAL SCH (07:54)
[2018-07-02] MEDS: SYMBICORT 80-4.5 MCG INHALER INHALATION SCH (08:49)
--- NOTE | 2018-07-02 10:21 | P.DS ---
Providers Date of admission: 06/25/18 13:32 Expected date of discharge: 07/02/18 Attending physician: Meir Hopkins Consults: 06/25/18 13:59 Consult Physician Stat Consulting Provider: Ulices Ferro Consult Reason/Comments: Gangrene 2nd R toe Do you want consulting provider notified?: Yes Consult Physician Stat Consulting Provider: Adama Rodriguez Consult Reason/Comments: Gangrene 2nd right toe Do you want consulting provider notified?: Yes Primary care physician: Shar [facility] Course: 88-year-old male who presented to the emergency room on 06/25/2018 due to suspected infection of his right second toe. Patient reports he was at [facility] for rehab and was discharged home about three weeks ago. He states he has been receiving home therapy. He reports a wound to his left great toe and right second toe that started about five weeks ago. He states it started out looking like a pimple. He thought it was due to his slippers so he quit wearing them. The patient was started on IV antibiotics and admitted to the hospital for further evaluation. Infectious disease and vascular surgery were consulted. Cultures are positive for MRSA. He is receiving Zosyn and Daptomycin. Foot xray was negative for acute fracture and did not show findings of osteomyelitis. Osseous demineralization and small vessel arthrosclerosis suggestive of peripheral arterial disease. Bone scan was completed suggesting very early osteomyelitis. Dr. Rodriguez performed bedside debridement of right second toe on 06/26/2018. Dressing changes with santyl are ordered. Patient underwent amputation of right second toe on 06/29/[address] Rodriguez. Patients pain has been tolerable post op. He was evaluated by PT and is able to safely be discharged home with home care. Does not require SCAR. Patient was discharged home in stable condition. He is to follow up with PCP and consulting providers on an outpatient basis. DISCHARGE DIAGNOSIS: Wound to right second toe, suggested early osteomyelitis, cultures + for MRSA, s /p debridement, s/p amputation Wound to great left toe Coronary artery disease with history of stent placement to LAD, 04/2018 Diabetes mellitus, type II, hemoglobin A1c 6.0% History of AAA History of TIA, 1995 Peripheral vascular disease Hospitalization for abdominal pain secondary to fecal impaction, February 2018 History of nicotine dependence, in remission, patient quit smoking in 1995 Daily alcohol use Nurse practitioner note has been reviewed by physician. Signing provider agrees with the documented findings, assessment, and plan of care. Patient Condition at Discharge: Stable Plan - Discharge Summary Discharge Rx Participant: Yes New Discharge Prescriptions: New Sulfamethox-Tmp 800-160Mg [Bactrim DS 800-160 mg] 1 tab PO Q12HR #14 tab Continue Omeprazole 20 mg PO DAILY Aspirin 81 mg PO DAILY chew Docusate [Colace] 100 mg PO BID cap guaiFENesin [Mucinex] 600 mg PO Q12HR tablet.er Polyethylene Glycol 3350 [Miralax] 17 gm PO DAILY #30 packet Hydrochlorothiazide [Hydrodiuril] 25 mg PO QAM Ferrous Sulfate [Iron (65 MG Elemental)] 325 mg PO BID Ergocalciferol (Vitamin D2) [Vitamin D2] 50,000 unit PO TH Atorvastatin [Lipitor] 80 mg PO DAILY #90 tab Clopidogrel [Plavix] 75 mg PO DAILY #90 tab Fluticasone/Salmeterol [Advair 250-50 Diskus] 1 puff INHALATION RT-BID metFORMIN HCL [Glucophage] 500 mg PO DAILY Metoprolol Tartrate [Lopressor] 12.5 mg PO BID Discharge Medication List Omeprazole 20 mg PO DAILY 10/16/15 [History] Aspirin 81 mg PO DAILY chew 02/18/18 [Rx] Docusate [Colace] 100 mg PO BID cap 02/18/18 [Rx] Polyethylene Glycol 3350 [Miralax] 17 gm PO DAILY #30 packet 02/18/18 [Rx] guaiFENesin [Mucinex] 600 mg PO Q12HR tablet.er 02/18/18 [Rx] Ferrous Sulfate [Iron (65 MG Elemental)] 325 mg PO BID 03/23/18 [History] Hydrochlorothiazide [Hydrodiuril] 25 mg PO QAM 03/23/18 [History] Ergocalciferol (Vitamin D2) [Vitamin D2] 50,000 unit PO TH 04/23/18 [History] Atorvastatin [Lipitor] 80 mg PO DAILY #90 tab 04/29/18 [Rx] Clopidogrel [Plavix] 75 mg PO DAILY #90 tab 04/29/18 [Rx] Fluticasone/Salmeterol [Advair 250-50 Diskus] 1 puff INHALATION RT-BID 06/25/18 [History] Metoprolol Tartrate [Lopressor] 12.5 mg PO BID 06/25/18 [History] metFORMIN HCL [Glucophage] 500 mg PO DAILY 06/25/18 [History] Sulfamethox-Tmp 800-160Mg [Bactrim DS 800-160 mg] 1 tab PO Q12HR #14 tab [Rx] Follow up Appointment(s)/Referral(s): Ulices Ferro MD [STAFF PHYSICIAN] - 2 Weeks [facility], [NON-STAFF] - 1-2 Days Shar Cedeño MD [Primary Care Provider] - 1 Week Adama Rodriguez MD [STAFF PHYSICIAN] - 07/09/18 Patient Instructions/Handouts: MRSA (Methicillin-Resistant Staphylococcus Aureus) (DC), Surgical Site Infections (DC), Toe Amputation (DC) Activity/Diet/Wound Care/Special Instructions: PT TO ONLY BEAR WEIGHT ON RIGHT HEEL UNTIL SEEN BY DR. RODRIGUEZ. Apply nonstick pad to surgical site on right foot and wrap with gauze. Apply nonstick pad to left toe wound and wrap with a small amount of gauze. Change dressings daily. Continue this until you are evaluated by Dr. Rodriguez. Discharge Disposition: HOME WITH HOME HEALTH SERVICES
[2018-07-02 12:53] LABS: Glucose,Whole Blood 115 mg/dL (75-99)
--- NOTE | 2018-07-06 10:06 | P.ARTDOP ---
Arterial Doppler LOWER EXTREMITY ARTERIAL DOPPLER: DATE OF SERVICE: 06/27/2018 Reason for study: Gangrenous right second toe. Doppler waveforms: Atypical bilaterally throughout. Pulse volume recording: Mild blunting but near flat line at the toe level.. Pressure gradients: Only at the foot level more severe on the right than the left. Ankle-brachial indices: Greater than 1 bilaterally. 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 Perfusion on the right likely to be in adequate for healing. Clinical correlation recommended.
== END 2018-07-02 14:24 | disposition home health service (06) | DRG 256 ==
LOC: EC 10:29 → 4MS4W 13:32
PROVIDERS: ADMIT Family Medicine; ATTEND Family Medicine
PROC: 0JBQ0ZZ Excision of Right Foot Subcutaneous Tissue and Fascia, Open Approach (ICD-10-PCS; principal; 2018-06-26)
PROC: 0Y6R0Z1 Detachment at Right 2nd Toe, High, Open Approach (ICD-10-PCS; 2018-06-29)
DX: E11.52 Type 2 diabetes mellitus with diabetic peripheral angiopathy with gangrene (principal); L03.116 Cellulitis of left lower limb; L97.518 Non-pressure chronic ulcer of other part of right foot with other specified severity; M86.9 Osteomyelitis, unspecified; E11.621 Type 2 diabetes mellitus with foot ulcer; E86.0 Dehydration; I10 Essential (primary) hypertension; I25.10 Atherosclerotic heart disease of native coronary artery without angina pectoris; J44.9 Chronic obstructive pulmonary disease, unspecified; K21.9 Gastro-esophageal reflux disease without esophagitis; Z79.02 Long term (current) use of antithrombotics/antiplatelets; Z79.82 Long term (current) use of aspirin; Z79.899 Other long term (current) drug therapy; Z80.7 Family history of other malignant neoplasms of lymphoid, hematopoietic and related tissues; Z85.828 Personal history of other malignant neoplasm of skin; Z86.14 Personal history of Methicillin resistant Staphylococcus aureus infection; Z86.711 Personal history of pulmonary embolism; Z86.73 Personal history of transient ischemic attack (TIA), and cerebral infarction without residual deficits; Z86.79 Personal history of other diseases of the circulatory system; Z87.891 Personal history of nicotine dependence; Z95.5 Presence of coronary angioplasty implant and graft; Z79.84 Long term (current) use of oral hypoglycemic drugs; E11.69 Type 2 diabetes mellitus with other specified complication; L97.529 Non-pressure chronic ulcer of other part of left foot with unspecified severity
CPT/HCPCS: 36415; 71046; 78315; 80048; 80053; 83036; 83735; 85025; 87040; 87070; 87075; 87077; 87186; 87205; 93005; 93923; 94640; 96361; 96365; 99285

== ENCOUNTER → 2019-12-28 | Day surgery (SDC) | payer MEDICARE ==
[2019-12-27 09:10] VITALS: BMI 20.9
[~2019-12-28] MED LIST changes: -ALPRAZolam 0.25 MG TAB PO PRN; -ALPRAZolam 0.5 MG TAB PO PRN; -ASPIRIN 325 MG TAB PO STA; -ATORVASTATIN 80 MG TAB PO STA; +DEXAMETHASONE SOD PHOSPHATE 10 MG/ML 1 ML VIAL IV ONE; +DEXAMETHASONE SOD PHOSPHATE 4 MG/ML 1 ML VIAL IV ONE; +FAMOTIDINE 20 MG/2 ML VIAL IV ONE; +HYDROmorphone 0.5 MG/0.5 ML SYRINGE IVP PRN; +KETAMINE 10 MG/ML 20 ML VIAL ONE; +LABETALOL 5 MG/ML VIAL MDV ONE; +LACTATED RINGERS 1,000 ML IV SCH; +LIDOCAINE 1% 20 ML VIAL (10MG/ML) FOR IV START INTRADERMA PRN; +LIDOCAINE 1%-EPI 1:100,000 20 ML VIAL SQ ONE; +METOPROLOL TARTRATE 5 MG/5 ML VIAL IVP ONE; +MIDAZOLAM 2 MG/2 ML VIAL IV PRN; +MIDAZOLAM 2 MG/2 ML VIAL ONE; -NITROGLYCERIN SL TABS 0.4 MG TAB SUBLINGUAL PRN; +ONDANSETRON 4 MG/2 ML VIAL IVP ONE; +PROPOFOL 10 MG/ML 20 ML VIAL IV ONE; -SODIUM CHLORIDE 0.9% 1,000 ML in EMPTY BAG 1 BAG IV ONE; +fentaNYL (PF) 50 MCG/ML 2 ML AMP ONE
[2019-12-28 11:52] VITALS: RESP 17
[2019-12-28 12:02] LABS: Glucose,Whole Blood 140 mg/dL (75-99)
--- NOTE | 2019-12-28 16:46 | P.OP ---
Date of Procedure: 12/28/19 Preoperative Diagnosis: Left frontal scalp skin lesion Left neck skin lesion Postoperative Diagnosis: Same Procedure(s) Performed: Excision left frontal scalp skin lesion Full-thickness skin graft reconstruction left frontal scalp defect Excision left neck skin lesion with layered closure Anesthesia: THIERRY YOUNG Surgeon: Luis Acosta Estimated Blood Loss (ml): 5 Pathology: other (Left frontal scalp skin lesion and left neck skin lesion) Condition: stable Disposition: PACU Indications for Procedure: This 79-year-old white male with a slowly enlarging left frontal scalp skin lesion which is raw and oozing as well as a chronic smaller skin lesion left lateral neck both suspicious for cutaneous malignancy Operative Findings: Approximately 2.5 cm raw left frontal scalp skin lesion, approximately 1.1 cm left lateral neck skin lesion Description of Procedure: The patient was brought in the operative suite and placed in a supine position. The patient underwent induction of IV sedation after appropriate monitors were placed by the forestry supervisor. 1% lidocaine with 100,000 epinephrine was infused subcutaneously and field block fashion left frontal left neck and left supraclavicular areas. This was left to work for 7 minutes vasoconstrictive effect. Left frontal lesion was then excised grossly entirely down to the muscular layer. Edges of the wound are undermined and hemostasis gained with electrocautery. A full-thickness skin graft was harvested from the left supraclavicular area in elliptical fashion the edges of the wound are undermined hemostasis was gained with electrocautery and the wound closed in the s ubcutaneous layer with inverted interrupted 4-0 Vicryl suture and skin closed with running locking 4-0 Prolene suture. Bacitracin ointment and a sterile dressing were placed. The graft was defatted and sutured into place of the frontal defect with 5-0 Vicryl sutures left long with a bolster dressing tied down to this which was Adaptic covering a bacitracin impregnated cotton. The left neck lesion was then excised in elliptical fashion down to the subcutaneous fat layer and the edges of the wound are undermined hemostasis gained with electrocautery. The wound was then closed with inverted interrupted 5-0 Vicryl suture and subcutaneous layer and skin closed with running locking 5- 0 Prolene suture. Bacitracin and a sterile dressing were placed. Patient tolerated procedure well was transferred postoperative recovery area in satisfactory condition.
[2019-12-28 16:53] VITALS: TEMP 97.8
[2019-12-28 17:01] LABS: Glucose,Whole Blood 168 mg/dL (75-99)
[2019-12-28 17:20] VITALS: PULSE 92
[2019-12-28 17:33] VITALS: BP 153/85
== END | disposition home or self-care (01) ==
LOC: OR 11:18
PROVIDERS: ATTEND Otolaryngology
DX: C44.42 Squamous cell carcinoma of skin of scalp and neck (principal); L57.0 Actinic keratosis; L81.4 Other melanin hyperpigmentation; I10 Essential (primary) hypertension; I35.0 Nonrheumatic aortic (valve) stenosis; I25.10 Atherosclerotic heart disease of native coronary artery without angina pectoris; E11.9 Type 2 diabetes mellitus without complications; E78.5 Hyperlipidemia, unspecified; J44.9 Chronic obstructive pulmonary disease, unspecified; K21.9 Gastro-esophageal reflux disease without esophagitis; Z79.02 Long term (current) use of antithrombotics/antiplatelets; Z79.51 Long term (current) use of inhaled steroids; Z79.82 Long term (current) use of aspirin; Z79.84 Long term (current) use of oral hypoglycemic drugs; Z79.899 Other long term (current) drug therapy; Z98.49 Cataract extraction status, unspecified eye; Z87.891 Personal history of nicotine dependence; Z82.49 Family history of ischemic heart disease and other diseases of the circulatory system
CPT/HCPCS: 88305; 11623; 15220; 11622; 12041; J2250; J1100; J2405; J0690; J3010; J2704